=== PATIENT | male | born 1945 | race Caucasian/White ===

== ENCOUNTER 2016-06-02 10:49 | Inpatient (IN) | payer OTHER, MEDICARE ==
[~2016-06-02] VITALS: Ht 188 cm; Wt 101.9 kg
[2016-06-12] MEDS ORDERED: VITA2000 PO (09:38)
[2016-06-12] MEDS ORDERED: AMLO5TAB2 PO (09:38)
[2016-06-12] MEDS ORDERED: GABA300C5 PO (09:38)
[2016-06-12] MEDS ORDERED: LOSA50TA PO (09:38)
[2016-06-12] MEDS ORDERED: CHLO25TA2 PO (09:38)
[2016-06-12] MEDS ORDERED: [UNRECOGNIZED DRUG - OTHER] PO (09:40)
[2016-06-15 06:30] VITALS: BP 145/86; PULSE 71; RESP 20; TEMP 98.1; O2SAT 95
[2016-06-15] MEDS ORDERED: DEXAMETHASONE SOD PHOS 20 MG/5 ML VIAL IV PUSH SCH (06:30)
[2016-06-15] MEDS ORDERED: METOPROLOL TARTRATE 25 MG TAB PO PRN (06:30)
[2016-06-15] MEDS ORDERED: EXPAREL PERI-ARTICULAR INJECTION (TOTAL VOL. 60 ML) P-ARTICULR SCH ×2 (06:30)
[2016-06-15] MEDS ORDERED: TRANEXAMIC PERI-ARTICULAR 3,000 MG/NS 100 ML P-ARTICULR SCH ×2 (06:30)
[2016-06-15] MEDS ORDERED: ceFAZolin 2 GM PREMIX 50 ML IV SCH (06:30)
[2016-06-15] MEDS ORDERED: SODIUM CHLORID 0.9% 500 ML IV SCH (06:30)
[2016-06-15] MEDS ORDERED: ROPIVACAINE PERI-ARTICULAR INJECTION. PERIART SCH ×5 (06:30)
[2016-06-15] MEDS ORDERED: LACTATED RINGER'S 1000 ML IV SCH (06:30)
[2016-06-15] MEDS: POVIDONE IODINE 7.5% SCRUB 118 ML BOTTLE TOP SCH (06:30)
[2016-06-15] MEDS ORDERED: TRANEXAMIC ACID INJ 1,400 MG in SODIUM CHLORIDE 0.9% INJ 100 ML IV SCH (06:30)
[2016-06-15] MEDS ORDERED: VANCOMYCIN 1000 MG/NS 250 ML (for <70 kg) IV SCH ×2 (06:30)
[2016-06-15] MEDS ORDERED: INSULIN HUMAN REGULAR 1,000 UNITS/10 ML VIAL SQ PRN (06:30)
[2016-06-15] MEDS ORDERED: GENTAMICIN SULFATE 80 MG/2 ML VIAL ONE (06:57)
[2016-06-15] MEDS ORDERED: HYDR-3288 PO (07:21)
[2016-06-15] MEDS ORDERED: APIX2.5T PO (07:21)
[2016-06-15] MEDS ORDERED: BISACODYL 10 MG SUPP PR PRN (07:30)
[2016-06-15] MEDS ORDERED: Post-op Orders (for Pharmacy) MISC XX ONE (07:30)
[2016-06-15] MEDS ORDERED: SODIUM CHLORIDE 0.9% FLUSH 5 ML FLUSH IVF PRN (07:30)
[2016-06-15] MEDS ORDERED: diphenhydrAMINE HCL 50 MG/ML VIAL IV PRN (07:30)
[2016-06-15] MEDS ORDERED: ACETAMINOPHEN/HYDROcodone 325 MG/7.5 MG TAB PO PRN (07:30)
[2016-06-15] MEDS ORDERED: ZOLPIDEM TARTRATE 5 MG TAB PO PRN (07:30)
[2016-06-15] MEDS ORDERED: ALUMINUM/MAGNESIUM/SIMETH 30 ML CUP PO PRN (07:30)
[2016-06-15] MEDS ORDERED: NALOXONE HCL 0.4 MG/ML AMP IV PRN (07:30)
[2016-06-15] MEDS ORDERED: MORPHINE SULFATE 4 MG/ML INJ IV PUSH PRN (07:30)
[2016-06-15] MEDS ORDERED: ONDANSETRON HCL 4 MG/2 ML VIAL IVP PRN (07:30)
[2016-06-15] MEDS ORDERED: MIDAZOLAM HCL 5 MG/5 ML VIAL ONE (07:57)
[2016-06-15] MEDS: SODIUM CHLORIDE 0.9% FLUSH 5 ML FLUSH IVF SCH ×2 (09:00→21:00)
[2016-06-15] MEDS ORDERED: amLODIPine BESYLATE 5 MG TAB PO SCH (09:00)
[2016-06-15] MEDS: SODIUM CHLOR 0.9% 1000 ML INJ 1,000 ML IV SCH ×2 (09:00→19:00)
[2016-06-15] MEDS: GABAPENTIN 300 MG CAP PO SCH (09:00)
[2016-06-15] MEDS ORDERED: NON-FORMULARY DRUG (Chlorthalidone 25 MG) PO SCH (09:00)
[2016-06-15] MEDS ORDERED: LOSARTAN 50 MG TAB PO SCH (09:00)
[2016-06-15] MEDS ORDERED: ACETAMINOPHEN 1000 MG/100 ML VIAL IV ONE (09:45)
[2016-06-15] MEDS ORDERED: BUPIVACAINE LIPOSOME PF 1.3% 20 ML VIAL ONE (10:25)
[2016-06-15] MEDS ORDERED: MIDAZOLAM HCL 2 MG/2 ML VIAL ONE ×2 (11:19→11:20)
[2016-06-15] MEDS ORDERED: DO NOT ADM ANY ANTICOAGULANT DRUGS XX PRN ×2 (11:45→12:30)
--- NOTE | 2016-06-15 12:01 | RADRPT ---
EXAM DATE/TIME: 06/15/2016 11:08 [place] COMPARISON: No previous studies available for comparison. INDICATIONS : Left knee replacement. MEDICAL HISTORY : Hypertension. SURGICAL HISTORY : None. ENCOUNTER: Initial ACUITY: 1 day PAIN SCORE: Non-responsive. LOCATION: Left knee FINDINGS: AP and lateral views of the knee following arthroplasty reveals a prosthesis in anatomic alignment. F racture is not appreciated. CONCLUSION: Status post total knee arthroplasty. Ye Rodriguez MD FACR Board Certified Radiologist. This report was verified electronically.
[2016-06-15] MEDS ORDERED: PROPOFOL 200 MG/20 ML AMP IV ONE (12:51)
[2016-06-15] MEDS ORDERED: LACTATED RINGER'S 1000 ML INJ 1,000 ML IV ONE (12:51)
[2016-06-15 13:30] VITALS: BP 121/78; PULSE 66; RESP 16; TEMP 96.3; O2SAT 95
--- NOTE | 2016-06-15 13:30 | HHI.DCPOC ---
Discharge Care Plan Diagnosis: (1) Primary localized osteoarthrosis, lower leg Your Health Problems Are: Difficulty with ADL Goals to Promote Your Health * To prevent worsening of your condition and complications * To maintain your health at the optimal level Directions to Meet Your Goals Take your medications as prescribed Follow your dietary instruction Follow activity as directed Keep your appointments as scheduled Take your immunizations and boosters as scheduled If your symptoms worsen call your PCP, if no PCP go to Urgent Care Center or Emergency Room Smoking is Dangerous to Your Health. Avoid second hand smoke Call the 24-hour hour crisis hotline for domestic abuse at Adi Pierce Jun 15, 2016 13:30
--- NOTE | 2016-06-15 13:31 | HHI.FF ---
Face to Face Verification Diagnosis: (1) Primary localized osteoarthrosis, lower leg Physical Therapy Gait training, Safety evaluation, Wheelchair training Knee: Total knee, Protocol: Left Left LE Weight Bearing: WB as tolerated Nursing RN: 3 days/week x 2 weeks Nursing: Dressing changes Dressing Changes: Daily dressing change I have seen patient Roman MarieMICHAEL on 06/15/16. My clinical findings support the need for the requested home health care services because: Limited ability to care for self High risk of falls I certify that my clinical findings support that this patient is homebound because: Post-op weakness Unsteady gait/balance Adi Pierce Jun 15, 2016 13:31
[2016-06-15] MEDS ORDERED: COMMODE 3-IN-11 MIS (13:33)
[2016-06-15] MEDS ORDERED: CPMMACHINE (13:33)
[2016-06-15] MEDS ORDERED: WALKER WHEELS/F1 MIS (13:33)
[2016-06-15 15:20] VITALS: BP 87/42
[2016-06-15 16:00] VITALS: BP 154/84; PULSE 80; RESP 18; TEMP 96.6; O2SAT 96
--- NOTE | 2016-06-15 16:18 | PD.CONS ---
HPI Service [facility] Consult Requested By Dr Ricardo Primary Care Physician Alessandro Vale M.D. Diagnoses: History of Present Illness This is a 71-year-old male with past medical history significant only for hypertension and hyperlipidemia was previously on statin but this was stopped due to adverse reactions to this., neuropathy and hypoglycemia who has a past medical history of arthritis of the left knee and is here for elective left knee replacement. The patient underwent left knee replacement by Dr. Ricardo, complaints of left knee pain which is 9/10 and complains of dizziness. Patient however denies chest pain, shortness of breath, diarrhea, abdominal pain. During my interview it is noted that the patient's blood pressures low with a recorded blood pressure of 87/42. Patient denies any fevers or chills, hematocrit, melena or hematemesis. Review of Systems Except as stated in HPI: all other systems reviewed are Neg Past Family Social History Allergies: Coded Allergies: Lisinopril (Verified Allergy, Unknown, 06/12/16) Past Medical History 1. Hypertension. 2. Neuropathy after a fall. 3. Hyperglycemia 2 months ago. Past Surgical History Arthroscopic surgery of the right knee in 2001. Reported Medications 1. Losartan 50 mg by mouth daily. 2. BX of one 2.5 mg by mouth twice a day. 3. Gabapentin 600 mg by mouth daily. 4. Amlodipine 5 mg by mouth daily. 5. Note: One to 2 tabs by mouth every 6 hours as needed for pain. 6. Chlorthalidone 25 mg by mouth daily. 7. Vitamin D3 4000 units by mouth daily. Active Ordered Medications Current Medications Medications (Trade) Dose Ordered Sig/Chery Route Start Time Stop Time Status Last Admin (Betadine 7.5% Scrub) 1 applic ONCE TOP 06/15/16 06:30 06/18/16 06:29 06/15/16 06:30 (Hibiclens 4% Top Soln) 1 applic ONCE TOP 06/15/16 06:30 06/18/16 06:29 (Norvasc) 5 mg DAILY PO 06/15/16 09:00 Hold (Neurontin) 600 mg DAILY PO 06/15/16 09:00 (Cozaar) 50 mg DAILY PO 06/15/16 09:00 Hold Non-Formulary Medication 25 mg 25 mg DAILY PO 06/15/16 09:00 Hold (NS 1000 ml Inj) 1,000 ml @ 100 mls/hr Q10H IV 06/15/16 09:00 (NS Flush) 2 ml UNSCH PRN IVF 06/15/16 07:30 (NS Flush) 2 ml BID IVF 06/15/16 09:00 06/16/16 09:40 (Lovenox Inj) 40 mg Q24H SQ 06/16/16 10:00 06/25/16 10:01 (Morphine Inj) 3 mg Q3H PRN IV PUSH 06/15/16 07:30 ([place] 7.5-325 Mg) 1 tab Q4H PRN PO 06/15/16 07:30 ([place] 7.5-325 Mg) 2 tab Q4H PRN PO 06/15/16 07:30 06/16/16 09:41 (Theragran M Tab) 1 tab BID PO 06/16/16 21:00 08/15/16 20:59 (Zofran Inj) 4 mg Q6H PRN IVP 06/15/16 07:30 (Colace) 100 mg BID PO 06/16/16 21:00 (Mag-Al Plus Susp Liq) 30 ml Q6H PRN PO 06/15/16 07:30 (Ambien) 5 mg HS PRN PO 06/15/16 07:30 06/15/16 21:24 (Dulcolax Supp) 10 mg DAILY PRN [place] 06/15/16 07:30 (Milk Of Magnesia Liq) 30 ml DAILY PRN PO 06/15/16 07:30 06/16/16 09:45 (Narcan Inj) 0.4 mg UNSCH PRN IV 06/15/16 07:30 (Benadryl Inj) 25 mg Q6H PRN IV 06/15/16 07:30 Miscellaneous Information ALL NURSING DEPARTME... UNSCH PRN XX 06/15/16 11:45 06/16/16 11:44 Miscellaneous Information ALL NURSING DEPARTME... UNSCH PRN XX 06/15/16 12:30 06/16/16 12:29 Family History Father from a heart attack at age 81. Social History Patient states that he currently does not smoke. He is a former smoker and quit in 1984 and he states he used to smoke 1 pack per day. The patient states that he drinks alcohol, approximately 1 pack per day, however in preparation to the surgery he has not had a drink in 2 weeks. Patient is and has 3 daughters. Physical Exam Vital Signs Vital Signs Date Time Temp Pulse Resp B/P Pulse Ox O2 Delivery O2 Flow Rate FiO2 06/15/16 13:30 96.3 66 16 121/78 95 06/15/16 12:30 98.0 67 16 114/68 97 Nasal Cannula 3 06/15/16 12:15 77 16 111/66 96 Nasal Cannula 3 06/15/16 12:00 70 15 117/64 95 Nasal Cannula 3 06/15/16 11:45 72 15 115/68 95 Nasal Cannula 3 06/15/16 11:30 69 15 114/67 95 Nasal Cannula 3 06/15/16 11:15 98 15 119/72 98 Nasal Cannula 2 06/15/16 11:06 97.9 108 14 102/68 93 Nasal Cannula 4 06/15/16 06:30 98.1 71 20 145/86 95 Physical Exam GENERAL: This is a well-nourished, well-developed patient, in no apparent distress. SKIN: No rashes, ecchymoses or lesions. Cool and dry. HEAD: Atraumatic. Normocephalic. No temporal or scalp tenderness. EYES: Pupils equal round and reactive. Extraocular motions intact. No scleral icterus. No injection or drainage. ENT: Nose without bleeding, purulent drainage or septal hematoma. Throat without erythema, tonsillar hypertrophy or exudate. Uvula midline. Airway patent. NECK: Trachea midline. No JVD or lymphadenopathy. Supple, nontender, no meningeal signs. CARDIOVASCULAR: Regular rate and rhythm without murmurs, gallops, or rubs. RESPIRATORY: Clear to auscultation. Breath sounds equal bilaterally. No wheezes , rales, or rhonchi. GASTROINTESTINAL: Abdomen soft, non-tender, nondistended. No hepato-splenomegaly , or palpable masses. No guarding. MUSCULOSKELETAL: Extremities without clubbing, cyanosis, or edema. No joint tenderness, effusion, or edema noted. No calf tenderness. Negative Homans sign bilaterally. NEUROLOGICAL: Awake and alert. Cranial nerves II through XII intact. Motor and sensory grossly within normal limits. Five out of 5 muscle strength in all muscle groups. Normal speech. Laboratory Laboratory Tests Test 06/15/16 06:45 Blood Type A NEGATIVE Antibody Screen NEGATIVE Blood Bank Comment Imaging Current Medications Medications (Trade) Dose Ordered Sig/Chery Route Start Time Stop Time Status Last Admin (Betadine 7.5% Scrub) 1 applic ONCE TOP 06/15/16 06:30 06/18/16 06:29 06/15/16 06:30 (Hibiclens 4% Top Soln) 1 applic ONCE TOP 06/15/16 06:30 06/18/16 06:29 (Norvasc) 5 mg DAILY PO 06/15/16 09:00 Hold (Neurontin) 600 mg DAILY PO 06/15/16 09:00 (Cozaar) 50 mg DAILY PO 06/15/16 09:00 Hold Non-Formulary Medication 25 mg 25 mg DAILY PO 06/15/16 09:00 Hold (NS 1000 ml Inj) 1,000 ml @ 100 mls/hr Q10H IV 06/15/16 09:00 (NS Flush) 2 ml UNSCH PRN IVF 06/15/16 07:30 (NS Flush) 2 ml BID IVF 06/15/16 09:00 06/16/16 09:40 (Lovenox Inj) 40 mg Q24H SQ 06/16/16 10:00 06/25/16 10:01 (Morphine Inj) 3 mg Q3H PRN IV PUSH 06/15/16 07:30 ([place] 7.5-325 Mg) 1 tab Q4H PRN PO 06/15/16 07:30 ([place] 7.5-325 Mg) 2 tab Q4H PRN PO 06/15/16 07:30 06/16/16 09:41 (Theragran M Tab) 1 tab BID PO 06/16/16 21:00 08/15/16 20:59 (Zofran Inj) 4 mg Q6H PRN IVP 06/15/16 07:30 (Colace) 100 mg BID PO 06/16/16 21:00 (Mag-Al Plus Susp Liq) 30 ml Q6H PRN PO 06/15/16 07:30 (Ambien) 5 mg HS PRN PO 06/15/16 07:30 06/15/16 21:24 (Dulcolax Supp) 10 mg DAILY PRN [place] 06/15/16 07:30 (Milk Of Magnesia Liq) 30 ml DAILY PRN PO 06/15/16 07:30 06/16/16 09:45 (Narcan Inj) 0.4 mg UNSCH PRN IV 06/15/16 07:30 (Benadryl Inj) 25 mg Q6H PRN IV 06/15/16 07:30 Miscellaneous Information ALL NURSING DEPARTME... UNSCH PRN XX 06/15/16 11:45 06/16/16 11:44 Miscellaneous Information ALL NURSING DEPARTME... UNSCH PRN XX 06/15/16 12:30 06/16/16 12:29 Assessment and Plan Problem List: (1) Primary localized osteoarthrosis, lower leg ICD Code: M17.10 Status: Acute Plan: Synthes is status post left knee arthroplasty. Continue pain control as per orthopedic surgery. (2) HTN (hypertension) ICD Code: I10 Status: Acute Plan: Patient currently is hypotensive. Hold antihypertensive medications for now. (3) Hyperlipidemia ICD Code: E78.5 Status: Acute Plan: A shunt currently on a statin treatment, however this was discontinued due to some adverse effect to the medication. (4) Peripheral neuropathy ICD Code: G62.9 Status: Chronic Plan: Continue gabapentin. The patient states he has these neuropathy after a fall. (5) Hyperglycemia ICD Code: R73.9 Status: Acute Plan: Patient states that recently he was diagnosed with hyperglycemia 2 months ago. I would order some BMP and if the blood sugar is elevated then will check hemoglobin A1c. (6) Hypotension ICD Code: I95.9 Status: Acute Plan: Hypotension likely secondary to anesthetic medications, acute blood loss , we'll give 1 L of IV saline bolus and hold antihypertensive medications. Continue to monitor vital signs. Check hemoglobin and hematocrit and monitor. Assessment and Plan DVT prophylaxis: SCDs, no chemotherapy prophylaxis for today since patient just had surgery and is hypotensive. Code Status Full code Discussed Condition With Patient Problem Qualifiers (1) Primary localized osteoarthrosis, lower leg: Qualified Code: M17.11 - Primary localized osteoarthrosis, lower leg, right (2) HTN (hypertension): Qualified Code: I10 - Essential hypertension (3) Peripheral neuropathy: Qualified Code: G62.9 - Peripheral polyneuropathy Lexx Salinas MD Jun 15, 2016 16:18
[2016-06-15 17:59] LABS: AUTOMATED NEUTROPHIL # 9.2 TH/MM3 (1.8-7.7); HEMATOCRIT 36.6 % (39.0-51.0); HEMO FLAGS DIFF FINAL; LYMPH % 2.3 % (9.0-44.0); LYMPHOCYTE # 0.2 TH/MM3 (1.0-4.8); MEAN CELL VOLUME 94.3 FL (80.0-100.0); MEAN CORPUSCULAR HEMOGLOBIN 32.2 PG (27.0-34.0); MEAN CORPUSCULAR HGB CONC 34.1 % (32.0-36.0); NEUT % 91.7 % (16.0-70.0); PLATELET COUNT 144 TH/MM3 (150-450); RED BLOOD COUNT 3.88 MIL/MM3 (4.50-5.90); RED CELL DISTRIBUTION WIDTH 13.5 % (11.6-17.2)
[2016-06-15 18:40] LABS: ALKALINE PHOSPHATASE 43 U/L (45-117); ALT (GPT) 26 U/L (12-78); ANION GAP 9 MEQ/L (5-15); AST (GOT) 16 U/L (15-37); BICARBONATE 24.4 MEQ/L (21.0-32.0); BLOOD UREA NITROGEN 22 MG/DL (7-18); CHLORIDE 106 MEQ/L (98-107); GLOMERULAR FILTRATION RATE 49 ML/MIN (>89); MAGNESIUM 1.9 MG/DL (1.5-2.5); POTASSIUM 3.7 MEQ/L (3.5-5.1); SODIUM (NA) 139 MEQ/L (136-145); TOTAL BILIRUBIN ADULT 0.5 MG/DL (0.2-1.0)
[2016-06-15 20:30] VITALS: BP 109/68; PULSE 61; RESP 18; TEMP 95.8; O2SAT 94
[2016-06-16] VITALS (8 sets, daily range): BP systolic 99–130; BP diastolic 55–75; PULSE 60–101; RESP 16–21; TEMP 96.6–99.4; O2SAT 92–95
[2016-06-16] MEDS: ACETAMINOPHEN/HYDROcodone 325 MG/7.5 MG TAB PO PRN ×4 (01:55→19:29)
[2016-06-16] MEDS: SODIUM CHLOR 0.9% 1000 ML INJ 1,000 ML IV SCH ×2 (05:00→15:00)
[2016-06-16] MEDS: POVIDONE IODINE 7.5% SCRUB 118 ML BOTTLE TOP SCH ×2 (05:16→19:30)
[2016-06-16] MEDS: CHLORHEXIDINE GLUCONATE 4% SOLN 120 ML BTL TOP SCH ×2 (06:30→23:32)
[2016-06-16 08:16] LABS: HEMATOCRIT 32.7 % (39.0-51.0); MEAN CELL VOLUME 94.3 FL (80.0-100.0); MEAN CORPUSCULAR HEMOGLOBIN 32.4 PG (27.0-34.0); MEAN CORPUSCULAR HGB CONC 34.4 % (32.0-36.0); PLATELET COUNT 119 TH/MM3 (150-450); RED BLOOD COUNT 3.47 MIL/MM3 (4.50-5.90); RED CELL DISTRIBUTION WIDTH 13.6 % (11.6-17.2); REVIEW FLAG FINAL; WHITE BLOOD COUNT 7.1 TH/MM3 (4.0-11.0)
[2016-06-16 08:47] LABS: BICARBONATE 23.5 MEQ/L (21.0-32.0); POTASSIUM 3.4 MEQ/L (3.5-5.1)
--- NOTE | 2016-06-16 08:56 | PD.ORT.PN ---
Subjective Post Op Day #: 1 Subjective Remarks painful but tolerable. Objective Vitals Vital Signs Date Time Temp Pulse Resp B/P Pulse Ox O2 Delivery O2 Flow Rate FiO2 06/16/16 08:00 96.6 60 18 99/55 92 06/16/16 04:00 98.1 69 16 118/64 95 06/16/16 01:49 92 06/16/16 00:00 96.8 62 16 130/71 95 06/15/16 20:30 95.8 61 18 109/68 94 06/15/16 16:00 96.6 80 18 154/84 96 06/15/16 15:20 87/42 06/15/16 13:30 96.3 66 16 121/78 95 06/15/16 12:30 98.0 67 16 114/68 97 Nasal Cannula 3 06/15/16 12:15 77 16 111/66 96 Nasal Cannula 3 06/15/16 12:00 70 15 117/64 95 Nasal Cannula 3 06/15/16 11:45 72 15 115/68 95 Nasal Cannula 3 06/15/16 11:30 69 15 114/67 95 Nasal Cannula 3 06/15/16 11:15 98 15 119/72 98 Nasal Cannula 2 06/15/16 11:06 97.9 108 14 102/68 93 Nasal Cannula 4 I/O 06/15/16 06/15/16 06/15/16 06/16/16 06/16/16 06/16/16 07:00 15:00 23:00 07:00 15:00 23:00 Intake Total 2100 ml 90 ml Output Total 475 ml 850 ml Balance 1625 ml -760 ml Intake Oral 90 ml IV Total 300 ml Other 1800 ml Output Urine Total 325 ml 850 ml Estimated Blood Loss 150 ml # Voids 50 Result Diagram: 06/16/1615 06/16/16 0715 Objective Remarks in bed, nad dressing c/d/i neg homans nvi Assessment & Plan Ortho Post Op Day #: 1 Problem List: Assessment and Plan s/p L TKA wbat daily dressing changes lovenox - d/c on Eliquis PT d/c planning home with [facility] and pt rx in chart f/up dr. trejo 2 weeks Adi Pierce Jun 16, 2016 08:56
[2016-06-16] MEDS: GABAPENTIN 300 MG CAP PO SCH (09:00)
[2016-06-16] MEDS: SODIUM CHLORIDE 0.9% FLUSH 5 ML FLUSH IVF SCH ×2 (09:40→19:30)
[2016-06-16] MEDS: MAGNESIUM HYDROXIDE SUSP 30 ML CUP PO PRN ×2 (09:45→19:29)
[2016-06-16] MEDS: ENOXAPARIN SODIUM 40 MG/0.4 ML SYRINGE SQ SCH (10:46)
--- NOTE | 2016-06-16 14:47 | HHI.PR ---
Subjective Remarks Patient was hypotensive earlier today. BP much improved Patient denies chest pain, short of breath and Denies dizziness. Denies abdominal pain, nausea or vomiting. Pain controlled Potassium 3.4. Objective Vitals Vital Signs Date Time Temp Pulse Resp B/P Pulse Ox O2 Delivery O2 Flow Rate FiO2 06/16/16 12:01 97.5 72 18 114/71 95 06/16/16 09:39 112/75 06/16/16 08:00 96.6 60 18 99/55 92 06/16/16 04:00 98.1 69 16 118/64 95 06/16/16 01:49 92 06/16/16 00:00 96.8 62 16 130/71 95 06/15/16 20:30 95.8 61 18 109/68 94 06/15/16 16:00 96.6 80 18 154/84 96 06/15/16 15:20 87/42 I/O 06/15/16 06/15/16 06/15/16 06/16/16 06/16/16 06/16/16 07:00 15:00 23:00 07:00 15:00 23:00 Intake Total 2100 ml 90 ml Output Total 475 ml 850 ml Balance 1625 ml -760 ml Intake Oral 90 ml IV Total 300 ml Other 1800 ml Output Urine Total 325 ml 850 ml Estimated Blood Loss 150 ml # Voids 50 Result Diagram: 06/16/1671406/16/16714 Imaging Last Impressions Knee X-Ray 06/15/16717 Signed Impressions: Service Date/Time: Wednesday, June 15, 2016 11:08 - CONCLUSION: Status post total knee arthroplasty. Ye Rodriguez MD Objective Remarks GENERAL: This is a well-nourished, well-developed patient, in no apparent distress. SKIN: No rashes, ecchymoses or lesions. Cool and dry. HEAD: Atraumatic. Normocephalic. No temporal or scalp tenderness. EYES: Pupils equal round and reactive. Extraocular motions intact. No scleral icterus. No injection or drainage. ENT: Nose without bleeding, purulent drainage or septal hematoma. Throat without erythema, tonsillar hypertrophy or exudate. Uvula midline. Airway patent. NECK: Trachea midline. No JVD or lymphadenopathy. Supple, nontender, no meningeal signs. CARDIOVASCULAR: Regular rate and rhythm without murmurs, gallops, or rubs. RESPIRATORY: Clear to auscultation. Breath sounds equal bilaterally. No wheezes , rales, or rhonchi. GASTROINTESTINAL: Abdomen soft, non-tender, nondistended. No hepato-splenomegaly , or palpable masses. No guarding. MUSCULOSKELETAL: Extremities without clubbing, cyanosis, or edema. No joint tenderness, effusion, or edema noted. No calf tenderness. Negative Homans sign bilaterally. Left knee swollen, wrapped on bandages which look C/D/I NEUROLOGICAL: Awake and alert. Cranial nerves II through XII intact. Motor and sensory grossly within normal limits. Five out of 5 muscle strength in all muscle groups. Normal speech. Procedures Status post left total knee arthroplasty. Medications and IVs Current Medications Medications (Trade) Dose Ordered Sig/Chery Route Start Time Stop Time Status Last Admin (Betadine 7.5% Scrub) 1 applic ONCE TOP 06/15/16 06:30 06/18/16 06:29 06/15/16 06:30 (Hibiclens 4% Top Soln) 1 applic ONCE TOP 06/15/16 06:30 06/18/16 06:29 (Norvasc) 5 mg DAILY PO 06/15/16 09:00 Hold (Neurontin) 600 mg DAILY PO 06/15/16 09:00 (Cozaar) 50 mg DAILY PO 06/15/16 09:00 Hold Non-Formulary Medication 25 mg 25 mg DAILY PO 06/15/16 09:00 Hold (NS 1000 ml Inj) 1,000 ml @ 100 mls/hr Q10H IV 06/15/16 09:00 (NS Flush) 2 ml UNSCH PRN IVF 06/15/16 07:30 (NS Flush) 2 ml BID IVF 06/15/16 09:00 06/16/16 09:40 (Lovenox Inj) 40 mg Q24H SQ 06/16/16 10:00 06/25/16 10:01 06/16/16 10:46 (Morphine Inj) 3 mg Q3H PRN IV PUSH 06/15/16 07:30 ([place] 7.5-325 Mg) 1 tab Q4H PRN PO 06/15/16 07:30 ([place] 7.5-325 Mg) 2 tab Q4H PRN PO 06/15/16 07:30 06/16/16 15:27 (Theragran M Tab) 1 tab BID PO 06/16/16 21:00 08/15/16 20:59 (Zofran Inj) 4 mg Q6H PRN IVP 06/15/16 07:30 (Colace) 100 mg BID PO 06/16/16 21:00 (Mag-Al Plus Susp Liq) 30 ml Q6H PRN PO 06/15/16 07:30 (Ambien) 5 mg HS PRN PO 06/15/16 07:30 06/15/16 21:24 (Dulcolax Supp) 10 mg DAILY PRN [place] 06/15/16 07:30 (Milk Of Magnesia Liq) 30 ml DAILY PRN PO 06/15/16 07:30 06/16/16 09:45 (Narcan Inj) 0.4 mg UNSCH PRN IV 06/15/16 07:30 (Benadryl Inj) 25 mg Q6H PRN IV 06/15/16 07:30 Urinary Catheter: No Vascular Central Line Catheter: No A/P Problem List: (1) Primary localized osteoarthrosis, lower leg ICD Code: M17.10 Status: Acute Plan: Synthes is status post left knee arthroplasty. Continue pain control as per orthopedic surgery. Patient currently on [place] and IV morphine for pain control. (2) HTN (hypertension) ICD Code: I10 Status: Acute Plan: Continue to hold antihypertensive medications as blood pressure has been borderline low. (3) Hyperlipidemia ICD Code: E78.5 Status: Acute Plan: Patient previously on a statin treatment, however this was discontinued due to some adverse effect to the medication. (4) Peripheral neuropathy ICD Code: G62.9 Status: Chronic Plan: Continue gabapentin. The patient states that his neuropathy came on after he fell. (5) Hyperglycemia ICD Code: R73.9 Plan: Patient states that recently he was diagnosed with hyperglycemia 2 months ago. Check hemoglobin A1c. (6) Hypotension ICD Code: I95.9 Status: Acute Plan: Hypotension likely secondary to anesthetic medications, acute blood loss , we'll give 1 L of IV saline bolus and hold antihypertensive medications. Continue to monitor vital signs. 04/15 patient's hypotension resolved after IV fluid bolus administered yesterday. However this morning and again hypotensive. I will place the patient on normal saline and continue to monitor vital signs. (7) WILLIE (acute kidney injury) ICD Code: N17.9 Status: Acute Plan: Thank you secondary to hemodynamic instability and hypotension. Creatinine 1.43 last night down to 1.02 today. Continue to monitor BUN/ creatinine, will place on IV fluids, strict I's and O's. Assessment and Plan GI prophylaxis: I will add PPI since patient is on [place] and has had hypotension. Activity reflexes: SCDs, started on Lovenox as per orthopedic surgery. Discharge Planning Possible clue to discharge in a.m. after creatinine improved and blood pressure stable. Problem Qualifiers (1) Primary localized osteoarthrosis, lower leg: Qualified Code: M17.11 - Primary localized osteoarthrosis, lower leg, right (2) HTN (hypertension): Qualified Code: I10 - Essential hypertension (3) Peripheral neuropathy: Qualified Code: G62.9 - Peripheral polyneuropathy Lexx Salinas MD Jun 16, 2016 14:47
[2016-06-16] MEDS ORDERED: POTASSIUM CHLORIDE 20 MEQ CONTROLLED RELEASE TAB PO ONE (15:00)
[2016-06-16] MEDS: NS + KCL 20 MEQ INJ 1,000 ML IV SCH ×2 (18:11→19:28)
[2016-06-16] MEDS: MULTIVITAMINS/MINERALS THERAPEUTIC TAB PO SCH (19:29)
[2016-06-16] MEDS: DOCUSATE SODIUM 100 MG CAP PO SCH (19:29)
[2016-06-16 22:04] LABS: HEMOGLOBIN A1a 1.1 %; HEMOGLOBIN A1b 1.7 %; HEMOGLOBIN Ao 84.2 %; HEMOGLOBIN F 0.2 %; HEMOGLOBIN LA1C 2.2 %; HEMOGLOBIN P3 4.2 %
[2016-06-17] VITALS (8 sets, daily range): BP systolic 116–147; BP diastolic 62–85; PULSE 82–114; RESP 18–20; TEMP 97.7–101.2; O2SAT 92–96
[2016-06-17] MEDS: ACETAMINOPHEN/HYDROcodone 325 MG/7.5 MG TAB PO PRN ×5 (02:15→19:37)
[2016-06-17] MEDS: GABAPENTIN 300 MG CAP PO SCH (08:06)
[2016-06-17] MEDS: MULTIVITAMINS/MINERALS THERAPEUTIC TAB PO SCH ×2 (08:07→19:30)
--- NOTE | 2016-06-17 08:07 | PD.ORT.PN ---
Subjective Post Op Day #: 2 Subjective Remarks doing better. had BM. Objective Vitals Vital Signs Date Time Temp Pulse Resp B/P Pulse Ox O2 Delivery O2 Flow Rate FiO2 06/17/16 04:00 97.7 109 18 147/85 95 06/17/16 00:00 100.6 113 18 143/80 94 06/16/16 20:49 99.2 101 21 103/59 92 06/16/16 16:00 99.4 86 18 113/58 93 06/16/16 12:01 97.5 72 18 114/71 95 06/16/16 09:39 112/75 I/O 06/16/16 06/16/16 06/16/16 06/17/16 06/17/16 06/17/16 07:00 15:00 23:00 07:00 15:00 23:00 Intake Total 90 ml 1230 ml 491 ml 798 ml Output Total 850 ml 450 ml Balance -760 ml 1230 ml 491 ml 348 ml Intake Oral 90 ml 1230 ml 360 ml IV Total 131 ml 798 ml Output Urine Total 850 ml 450 ml # Voids 2 2 # Bowel Movements 0 0 1 Result Diagram: 06/16/1615 06/16/16 0715 Objective Remarks in bed, nad incision no erythema, no drainage neg homans nvi Assessment & Plan Ortho Post Op Day #: 2 Problem List: Assessment and Plan s/p L TKA wbat daily dressing changes lovenox - d/c on Eliquis IS and OOB d/c planning home with [facility] and pt - cleared for d/c today rx in chart f/up dr. trejo 2 weeks Adi Pierce Jun 17, 2016 08:07
[2016-06-17] MEDS: DOCUSATE SODIUM 100 MG CAP PO SCH ×2 (08:08→19:30)
[2016-06-17] MEDS: SODIUM CHLORIDE 0.9% FLUSH 5 ML FLUSH IVF SCH ×2 (08:08→19:30)
[2016-06-17 08:14] LABS: HEMATOCRIT 30.6 % (39.0-51.0); MEAN CELL VOLUME 93.7 FL (80.0-100.0); MEAN CORPUSCULAR HEMOGLOBIN 32.1 PG (27.0-34.0); MEAN CORPUSCULAR HGB CONC 34.2 % (32.0-36.0); PLATELET COUNT 104 TH/MM3 (150-450); RED BLOOD COUNT 3.27 MIL/MM3 (4.50-5.90); RED CELL DISTRIBUTION WIDTH 13.9 % (11.6-17.2); REVIEW FLAG FINAL; WHITE BLOOD COUNT 7.4 TH/MM3 (4.0-11.0)
[2016-06-17 08:23] LABS: BICARBONATE 24.6 MEQ/L (21.0-32.0); POTASSIUM 3.4 MEQ/L (3.5-5.1)
[2016-06-17] MEDS: ENOXAPARIN SODIUM 40 MG/0.4 ML SYRINGE SQ SCH (10:38)
--- NOTE | 2016-06-17 11:12 | MP ---
cc: DIGNA VALDERRAMA DATE OF SURGERY 06/15/2016 PREOPERATIVE DIAGNOSIS Left knee osteoarthritis POSTOPERATIVE DIAGNOSES Left knee osteoarthritis PROCEDURE Left total knee arthroplasty SURGEON Dr. Seth Valderrama SERVICES TECH BRYAN Freire ANESTHESIA General, spinal and an adductor canal block. REVIEW OF SYSTEMS 50 mL. TOURNIQUET TIME 64 minutes at 250 mmHg COMPLICATIONS None IMAGING STUDIES DePuy attune size eight logistics analyst stabilized femoral component, size nine rotating platform tibia baseplate, size 10 mm polyethylene tibial insert, size 41 mm patella. JUSTIFICATION A 71-year-old male with history of severe end-stage osteoarthritis involving the left knee. He has severe disabling pain with standing, walking, ambulation, weightbearing activities. He has failed greater than three months of nonoperative conservative to include medication therapy, injections, ambulatory assisted aids, home exercise program, activity modification. The patient is not overweight. X-ray of the left knee reveals severe end-stage osteoarthritis, [id number] joint space narrowing, subchondral sclerosis, subchondral cyst osteophyte formation and a large varus deformity. The patient was counseled as to risks, benefits and alternatives to a total knee arthroplasty. The risks were discussed which include but are not limited to anesthesia, bleeding, infection, damage to nerves, blood vessels, pain, stiffness, failure of components, blood clots, pulmonary embolism, even . The patient's pain is severe. He understood the risks and did wish to proceed with surgery. A written consent was obtained. PROCEDURE IN DETAIL The patient was identified by name, taken to the operating room, placed supine on the operating room table. Initially spinal anesthesia was administered, but this did not provide adequate anesthesia. Subsequently general anesthesia was administered to the patient. The patient was administered 2 grams of IV Ancef and 1 gram of IV vancomycin. A well-padded tourniquet was placed on the left thigh. The left lower extremity prepped and draped using isopropyl alcohol, Hibiclens solution and Chloraprep solution. An Esmarch bandage was used to exsanguinate the left lower extremity. Tourniquet inflated to 250 mmHg. A longitudinal incision was made over the anterior aspect of left knee. A medial parapatellar arthrotomy incision was performed. The patella was everted. A patella resection guide was used to resect 9.5 mm of patella. Three drills in the patella were placed and the 41-mm trial fit well. Attention was turned to the femur. Intramedullary guide harsh was placed and the distal femoral guide set to remove 10 mm of distal femur. This was set 5 degrees off the anatomic valgus axis alignment. An oscillating saw was used to perform a distal femoral cut. Attention was turned to the tibia. An extramedullary tibial guide was used to resect 5 mm off the lowest portion of the medial tibial plateau. Tibial guide was pinned in place and the tibial cut was performed. A 5 mm spacer block showed full extension. I did have to do a significant release along the medial collateral ligament and posterior medial corner as the patient had significant varus deformity and flexion contracture to the medial structures. This allowed for soft tissue balance in a varus-valgus fashion. Attention was turned back to the femur. The AP sizer block measured size eight. The 3 degree external rotation anterior reference guide was used to pin a size [address] The anterior posterior chamfer cuts were performed. A size eight PCL box guide was pinned in place. PCL was box cut with an oscillating saw. The medial and lateral meniscus remnants were removed as well as bone and soft tissue debrided from posterior portion of the knee. A size nine tibia baseplate was pinned in place. Tibia was drilled and punched. Trial components were evaluated and was final component was cemented in place. With the 10-mm polyethylene tibial insert, the leg achieved full extension at 0 degrees and flexion to 140, no evidence of tibial lift-off. Varus-valgus balance appeared appropriate and symmetric and the patella was noted to track centrally. Tourniquet was deflated. Bovie cautery was used for hemostasis. The knee was thoroughly irrigated with sterile saline pulse lavage antibiotic impregnated solution. The arthrotomy incision was closed with #1 Vicryl suture. The subcutaneous layer with 2-0 Vicryl suture. Skin was closed with Dermabond. Sterile dressing applied. The patient tolerated the procedure well with no intraoperative complications noted. John Pierce, physician nurse practitioner physicians assistant certified, was present during entire procedure to include patient positioning and the procedure itself. The medical necessity of physician nurse practitioner physicians assistant was indicated due to the complexity of the procedures. He assisted with appropriate manipulation of the leg and also traction of muscle, tendon and bone and neurovascular structure. He assisted with both preparation of bone and implantation of the prosthetic replacement. MD CONNOR Leonard /10:39 AM /10:27 AM
[2016-06-17] MEDS: NS + KCL 20 MEQ INJ 1,000 ML IV SCH ×2 (13:30→19:30)
[2016-06-17] MEDS ORDERED: POTASSIUM CHLORIDE 10 MEQ CONTROLLED RELEASE TAB PO ONE (17:45)
[2016-06-17 18:38] LABS: BLOOD, URINE SMALL (NEG); COMMENT (UR) CULT NOT INDICATED; CULTURE IF INDICATED CULT NOT INDICATED; GLUCOSE,URINE NEG (NEG); KETONE, URINE 10 mg/dL (NEG); MUCUS URINE FEW /lpf (OCC); NITRITE,URINE NEG (NEG); PH, URINE 5.5 (5.0-8.5); URINE COLOR YELLOW (YELLW/STRAW)
--- NOTE | 2016-06-17 19:04 | HHI.PR ---
Subjective Remarks Patient denies cp/sob pain controlled having fevers Objective Vitals Vital Signs Date Time Temp Pulse Resp B/P Pulse Ox O2 Delivery O2 Flow Rate FiO2 06/17/16 16:00 100.8 110 18 128/62 92 06/17/16 14:35 95 Nasal Cannula 21 06/17/16 12:00 98.5 82 18 131/72 96 06/17/16 10:31 20 06/17/16 08:00 100.5 100 18 116/66 92 06/17/16 04:00 97.7 109 18 147/85 95 06/17/16 00:00 100.6 113 18 143/80 94 06/16/16 20:49 99.2 101 21 103/59 92 I/O 06/16/16 06/16/16 06/16/16 06/17/16 06/17/16 06/17/16 07:00 15:00 23:00 07:00 15:00 23:00 Intake Total 90 ml 1230 ml 491 ml 798 ml 600 ml Output Total 850 ml 450 ml Balance -760 ml 1230 ml 491 ml 348 ml 600 ml Intake Oral 90 ml 1230 ml 360 ml 600 ml IV Total 131 ml 798 ml Output Urine Total 850 ml 450 ml # Voids 2 2 4 # Bowel Movements 0 0 1 0 Result Diagram: 06/17/1672206/17/16722 Imaging Last Impressions Knee X-Ray 06/15/16717 Signed Impressions: Service Date/Time: Wednesday, June 15, 2016 11:08 - CONCLUSION: Status post total knee arthroplasty. Ye Rodriguez MD Objective Remarks GENERAL: This is a well-nourished, well-developed patient, in no apparent distress. SKIN: No rashes, ecchymoses or lesions. Cool and dry. HEAD: Atraumatic. Normocephalic. No temporal or scalp tenderness. EYES: Pupils equal round and reactive. Extraocular motions intact. No scleral icterus. No injection or drainage. ENT: Nose without bleeding, purulent drainage or septal hematoma. Throat without erythema, tonsillar hypertrophy or exudate. Uvula midline. Airway patent. NECK: Trachea midline. No JVD or lymphadenopathy. Supple, nontender, no meningeal signs. CARDIOVASCULAR: Regular rate and rhythm without murmurs, gallops, or rubs. RESPIRATORY: Clear to auscultation. Breath sounds equal bilaterally. No wheezes , rales, or rhonchi. GASTROINTESTINAL: Abdomen soft, non-tender, nondistended. No hepato-splenomegaly , or palpable masses. No guarding. MUSCULOSKELETAL: Extremities without clubbing, cyanosis, or edema. No joint tenderness, effusion, or edema noted. No calf tenderness. Negative Homans sign bilaterally. Left knee swollen, wrapped on bandages which look C/D/I NEUROLOGICAL: Awake and alert. Cranial nerves II through XII intact. Motor and sensory grossly within normal limits. Five out of 5 muscle strength in all muscle groups. Normal speech. Procedures Status post left total knee arthroplasty. Medications and IVs Current Medications Medications (Trade) Dose Ordered Sig/Chery Route Start Time Stop Time Status Last Admin (Betadine 7.5% Scrub) 1 applic ONCE TOP 06/15/16 06:30 06/18/16 06:29 06/15/16 06:30 (Hibiclens 4% Top Soln) 1 applic ONCE TOP 06/15/16 06:30 06/18/16 06:29 (Norvasc) 5 mg DAILY PO 06/15/16 09:00 Hold (Neurontin) 600 mg DAILY PO 06/15/16 09:00 (Cozaar) 50 mg DAILY PO 06/15/16 09:00 Hold Non-Formulary Medication 25 mg DAILY PO 06/15/16 09:00 Hold (NS Flush) 2 ml UNSCH PRN IVF 06/15/16 07:30 (NS Flush) 2 ml BID IVF 06/15/16 09:00 06/17/16 19:30 (Lovenox Inj) 40 mg Q24H SQ 06/16/16 10:00 06/25/16 10:01 06/17/16 10:38 (Morphine Inj) 3 mg Q3H PRN IV PUSH 06/15/16 07:30 ([place] 7.5-325 Mg) 1 tab Q4H PRN PO 06/15/16 07:30 ([place] 7.5-325 Mg) 2 tab Q4H PRN PO 06/15/16 07:30 06/17/16 19:37 (Theragran M Tab) 1 tab BID PO 06/16/16 21:00 08/15/16 20:59 06/17/16 19:30 (Zofran Inj) 4 mg Q6H PRN IVP 06/15/16 07:30 06/17/16 15:41 (Colace) 100 mg BID PO 06/16/16 21:00 06/16/16 19:29 (Mag-Al Plus Susp Liq) 30 ml Q6H PRN PO 06/15/16 07:30 (Ambien) 5 mg HS PRN PO 06/15/16 07:30 06/15/16 21:24 (Dulcolax Supp) 10 mg DAILY PRN [place] 06/15/16 07:30 (Milk Of Magnesia Liq) 30 ml DAILY PRN PO 06/15/16 07:30 06/16/16 19:29 (Narcan Inj) 0.4 mg UNSCH PRN IV 06/15/16 07:30 Diphenhydramine HCl 25 mg 25 mg Q6H PRN IV 06/15/16 07:30 (NS + KCl 20 Meq Inj) 1,000 ml @ 100 mls/hr Q10H IV 06/16/16 17:30 06/16/16 19:28 Urinary Catheter: No Vascular Central Line Catheter: No A/P Problem List: (1) Primary localized osteoarthrosis, lower leg ICD Code: M17.10 Status: Acute Plan: Synthes is status post left knee arthroplasty. Continue pain control as per orthopedic surgery. Patient currently on [place] and IV morphine for pain control. (2) HTN (hypertension) ICD Code: I10 Status: Acute Plan: Continue to hold antihypertensive medications as blood pressure has been borderline low. 06/17 bp much improved (3) Hyperlipidemia ICD Code: E78.5 Status: Acute Plan: Patient previously on a statin treatment, however this was discontinued due to some adverse effect to the medication. (4) Peripheral neuropathy ICD Code: G62.9 Status: Chronic Plan: Continue gabapentin. The patient states that his neuropathy came on after he fell. (5) Hyperglycemia ICD Code: R73.9 Status: Acute Plan: Patient states that recently he was diagnosed with hyperglycemia 2 months ago. Check hemoglobin A1c ----> patient is prediabetic. Patient would bennefit from starting oral metformin upon dc. Will consult dietitian and primary special educator. (6) Hypotension ICD Code: I95.9 Status: Acute Plan: Hypotension likely secondary to anesthetic medications, acute blood loss , we'll give 1 L of IV saline bolus and hold antihypertensive medications. Continue to monitor vital signs. 04/15 patient's hypotension resolved after IV fluid bolus administered yesterday. However this morning and again hypotensive. I will place the patient on normal saline and continue to monitor vital signs. 04/16 BP improved. Continue normal saline (7) WILLIE (acute kidney injury) ICD Code: N17.9 Status: Acute Plan: Thank you secondary to hemodynamic instability and hypotension. Creatinine 1.1. Continue to monitor BUN/creatinine, will place on IV fluids, strict I's and O's. (8) Low grade fever ICD Code: R50.9 Status: Acute Plan: check urinalysis, if urinalysis negative - will need check x ray and possibly blood cultures if fever persistent Assessment and Plan GI prophylaxis: I will add PPI since patient is on [place] and has had hypotension. Activity reflexes: SCDs, started on Lovenox as per orthopedic surgery. Discharge Planning Possible clue to discharge in a.m. after creatinine improved and blood pressure stable. Problem Qualifiers (1) Primary localized osteoarthrosis, lower leg: Qualified Code: M17.11 - Primary localized osteoarthrosis, lower leg, right (2) HTN (hypertension): Qualified Code: I10 - Essential hypertension (3) Peripheral neuropathy: Qualified Code: G62.9 - Peripheral polyneuropathy Lexx Salinas MD Jun 17, 2016 19:04
[2016-06-18] VITALS (7 sets, daily range): BP systolic 110–134; BP diastolic 58–76; PULSE 96–115; RESP 18–20; TEMP 97.6–102.9; O2SAT 92–98
[2016-06-18] MEDS: ACETAMINOPHEN/HYDROcodone 325 MG/7.5 MG TAB PO PRN ×4 (04:06→21:01)
[2016-06-18 06:58] LABS: HEMATOCRIT 29.7 % (39.0-51.0); MEAN CORPUSCULAR HGB CONC 34.1 % (32.0-36.0); PLATELET COUNT 105 TH/MM3 (150-450); RED BLOOD COUNT 3.16 MIL/MM3 (4.50-5.90); RED CELL DISTRIBUTION WIDTH 13.6 % (11.6-17.2); REVIEW FLAG FINAL; WHITE BLOOD COUNT 8.1 TH/MM3 (4.0-11.0)
[2016-06-18 07:57] LABS: BICARBONATE 27.9 MEQ/L (21.0-32.0); POTASSIUM 3.8 MEQ/L (3.5-5.1)
--- NOTE | 2016-06-18 08:37 | PD.ORT.PN ---
Subjective Post Op Day #: 3 Subjective Remarks pain controlled. having the chills. Objective Vitals Vital Signs Date Time Temp Pulse Resp B/P Pulse Ox O2 Delivery O2 Flow Rate FiO2 06/18/16 04:20 100.0 101 18 121/73 97 06/18/16 00:25 101.7 96 20 117/61 95 06/17/16 22:18 96 21 06/17/16 20:00 101.2 114 20 124/63 96 06/17/16 16:00 100.8 110 18 128/62 92 06/17/16 14:35 95 Nasal Cannula 21 06/17/16 12:00 98.5 82 18 131/72 96 06/17/16 10:31 20 I/O 06/17/16 06/17/16 06/17/16 06/18/16 06/18/16 06/18/16 07:00 15:00 23:00 07:00 15:00 23:00 Intake Total 798 ml 600 ml 700 ml Output Total 450 ml 1100 ml Balance 348 ml 600 ml -400 ml Intake Oral 600 ml 700 ml IV Total 798 ml Output Urine Total 450 ml 1100 ml # Voids 4 # Bowel Movements 1 0 0 Result Diagram: 06/18/16 0550 06/18/16 0550 Objective Remarks in chair, nad, shivering incision no erythema, no drainage neg homans nvi Assessment & Plan Ortho Post Op Day #: 3 Problem List: Assessment and Plan s/p L TKA wbat daily dressing changes lovenox - d/c on Eliquis IS and OOB elevated temp - UA neg, order CXR and US start vanco d/c planning home with [facility] and pt - hold today rx in chart f/up dr. trejo 2 weeks Adi Pierce Jun 18, 2016 08:37
[2016-06-18] MEDS: GABAPENTIN 300 MG CAP PO SCH (09:00)
[2016-06-18] MEDS: SODIUM CHLORIDE 0.9% FLUSH 5 ML FLUSH IVF SCH ×2 (09:00→21:02)
[2016-06-18] MEDS: NS + KCL 20 MEQ INJ 1,000 ML IV SCH ×2 (09:30→19:30)
[2016-06-18] MEDS: ENOXAPARIN SODIUM 40 MG/0.4 ML SYRINGE SQ SCH (09:37)
[2016-06-18] MEDS: VANCOMYCIN INJ 1,000 MG in SODIUM CHLOR 0.9% 250 ML INJ 250 ML IV SCH ×2 (09:37→21:01)
[2016-06-18] MEDS: MULTIVITAMINS/MINERALS THERAPEUTIC TAB PO SCH ×2 (09:42→21:01)
[2016-06-18] MEDS: DOCUSATE SODIUM 100 MG CAP PO SCH ×2 (09:42→21:00)
--- NOTE | 2016-06-18 09:56 | RADRPT ---
EXAM DATE/TIME: 06/18/2016 09:00 [facility] COMPARISON: KNEE LEFT LTD (1 OR 2VWS), June 15, 2016, 11:08. INDICATIONS : Fever. MEDICAL HISTORY : None. SURGICAL HISTORY : None. ENCOUNTER: Initial ACUITY: 3 days PAIN SCORE: 0/10 LOCATION: Bilateral chest FINDINGS: The heart is normal in size. There chronic interstitial changes within the pulmonary parenchyma. The lungs are otherwise clear. There are degenerative changes in the shoulders bilaterally. CONCLUSION: 1. Chronic interstitial changes. No acute abnormality. Lyle Rodriguez MD on June 18, 2016 at 9:51 Board Certified Radiologist. This report was verified electronically.
--- NOTE | 2016-06-18 11:59 | HHI.PR ---
Subjective Remarks Patient states had fevers and chills overnight denies cp/sob denies cough had explosive diarrhea 2 days ago and yesterday loose stool, has not had a BM today T max 101.7 had throbbing pain over in left knee. Objective Vitals Vital Signs Date Time Temp Pulse Resp B/P Pulse Ox O2 Delivery O2 Flow Rate FiO2 06/18/16 04:20 100.0 101 18 121/73 97 06/18/16 00:25 101.7 96 20 117/61 95 06/17/16 22:18 96 21 06/17/16 20:00 101.2 114 20 124/63 96 06/17/16 16:00 100.8 110 18 128/62 92 06/17/16 14:35 95 Nasal Cannula 21 06/17/16 12:00 98.5 82 18 131/72 96 I/O 06/17/16 06/17/16 06/17/16 06/18/16 06/18/16 06/18/16 07:00 15:00 23:00 07:00 15:00 23:00 Intake Total 798 ml 600 ml 700 ml Output Total 450 ml 1100 ml Balance 348 ml 600 ml -400 ml Intake Oral 600 ml 700 ml IV Total 798 ml Output Urine Total 450 ml 1100 ml # Voids 4 # Bowel Movements 1 0 0 Result Diagram: 06/18/16 0550 06/18/16 0550 Imaging Last Impressions Lower Extremity Ultrasound 06/18/16 0000 Signed Impressions: Service Date/Time: June 10:30 - CONCLUSION: Negative exam. No sonographic or Doppler findings of deep venous thrombosis. Rigo Rasmussen MD Chest X-Ray 06/18/16 0000 Signed Impressions: Service Date/Time: June 09:00 - CONCLUSION: 1. Chronic interstitial changes. No acute abnormality. Lyle Rodriguez MD Knee X-Ray 06/15/16 0718 Signed Impressions: Service Date/Time: Wednesday, June 15, 2016 11:08 - CONCLUSION: Status post total knee arthroplasty. Ye Rodriguez MD Objective Remarks GENERAL: This is a well-nourished, well-developed patient, in no apparent distress. SKIN: No rashes, ecchymoses or lesions. Cool and dry. HEAD: Atraumatic. Normocephalic. No temporal or scalp tenderness. EYES: Pupils equal round and reactive. Extraocular motions intact. No scleral icterus. No injection or drainage. ENT: Nose without bleeding, purulent drainage or septal hematoma. Throat without erythema, tonsillar hypertrophy or exudate. Uvula midline. Airway patent. NECK: Trachea midline. No JVD or lymphadenopathy. Supple, nontender, no meningeal signs. CARDIOVASCULAR: Regular rate and rhythm without murmurs, gallops, or rubs. RESPIRATORY: Clear to auscultation. Breath sounds equal bilaterally. No wheezes , rales, or rhonchi. GASTROINTESTINAL: Abdomen soft, non-tender, nondistended. No hepato-splenomegaly , or palpable masses. No guarding. MUSCULOSKELETAL: Extremities without clubbing, cyanosis, or edema. No joint tenderness, effusion, or edema noted. No calf tenderness. Negative Homans sign bilaterally. Left knee swollen, wrapped on bandages which look C/D/I NEUROLOGICAL: Awake and alert. Cranial nerves II through XII intact. Motor and sensory grossly within normal limits. Five out of 5 muscle strength in all muscle groups. Normal speech. Procedures Status post left total knee arthroplasty. Medications and IVs Current Medications Medications (Trade) Dose Ordered Sig/Chery Route Start Time Stop Time Status Last Admin (Norvasc) 5 mg DAILY PO 06/15/16 09:00 Hold (Neurontin) 600 mg DAILY PO 06/15/16 09:00 (Cozaar) 50 mg DAILY PO 06/15/16 09:00 Hold Non-Formulary Medication 25 mg DAILY PO 06/15/16 09:00 Hold (NS Flush) 2 ml UNSCH PRN IVF 06/15/16 07:30 (NS Flush) 2 ml BID IVF 06/15/16 09:00 06/18/16 09:00 (Lovenox Inj) 40 mg Q24H SQ 06/16/16 10:00 06/25/16 10:01 06/18/16 09:37 (Morphine Inj) 3 mg Q3H PRN IV PUSH 06/15/16 07:30 ([place] 7.5-325 Mg) 1 tab Q4H PRN PO 06/15/16 07:30 ([place] 7.5-325 Mg) 2 tab Q4H PRN PO 06/15/16 07:30 06/18/16 14:10 (Theragran M Tab) 1 tab BID PO 06/16/16 21:00 08/15/16 20:59 06/18/16 09:42 (Zofran Inj) 4 mg Q6H PRN IVP 06/15/16 07:30 06/17/16 15:41 (Colace) 100 mg BID PO 06/16/16 21:00 06/18/16 09:42 (Mag-Al Plus Susp Liq) 30 ml Q6H PRN PO 06/15/16 07:30 (Ambien) 5 mg HS PRN PO 06/15/16 07:30 06/15/16 21:24 (Dulcolax Supp) 10 mg DAILY PRN [place] 06/15/16 07:30 (Milk Of Magnesia Liq) 30 ml DAILY PRN PO 06/15/16 07:30 06/16/16 19:29 (Narcan Inj) 0.4 mg UNSCH PRN IV 06/15/16 07:30 Diphenhydramine HCl 25 mg 25 mg Q6H PRN IV 06/15/16 07:30 Potassium Chloride/Sodium Chloride 1,000 ml @ 100 mls/hr Q10H IV 06/16/16 17:30 06/16/16 19:28 Vancomycin HCl 1000 mg/Sodium Chloride 250 ml @ 250 mls/hr Q12H IV 06/18/16 09:00 06/18/16 09:37 (Maxipime Inj/NS Inj) 100 ml @ 200 mls/hr Q8H IV 06/18/16 13:00 06/18/16 12:56 Urinary Catheter: No Vascular Central Line Catheter: No A/P Problem List: (1) Primary localized osteoarthrosis, lower leg ICD Code: M17.10 Status: Acute Plan: Synthes is status post left knee arthroplasty. Continue pain control as per orthopedic surgery. Patient currently on [place] and IV morphine for pain control. (2) HTN (hypertension) ICD Code: I10 Status: Acute Plan: Continue to hold antihypertensive medications as blood pressure has been borderline low. 06/17 bp much improved (3) Hyperlipidemia ICD Code: E78.5 Status: Acute Plan: Patient previously on a statin treatment, however this was discontinued due to some adverse effect to the medication. (4) Peripheral neuropathy ICD Code: G62.9 Status: Chronic Plan: Continue gabapentin. The patient states that his neuropathy came on after he fell. (5) Hyperglycemia ICD Code: R73.9 Status: Acute Plan: Patient states that recently he was diagnosed with hyperglycemia 2 months ago. Check hemoglobin A1c ----> patient is prediabetic. Patient would benefit from starting oral metformin upon dc. Will consult dietitian and educator senior clinical. (6) Hypotension ICD Code: I95.9 Status: Acute Plan: Hypotension likely secondary to anesthetic medications, acute blood loss , we'll give 1 L of IV saline bolus and hold antihypertensive medications. Continue to monitor vital signs. 04/15 patient's hypotension resolved after IV fluid bolus administered yesterday. However this morning and again hypotensive. I will place the patient on normal saline and continue to monitor vital signs. 04/16 BP improved. Continue normal saline (7) WILLIE (acute kidney injury) ICD Code: N17.9 Status: Acute Plan: Thank you secondary to hemodynamic instability and hypotension. Creatinine 1.1. Continue to monitor BUN/creatinine, will place on IV fluids, strict I's and O's. (8) SIRS (systemic inflammatory response syndrome) ICD Code: R65.10 Status: Acute Plan: Patient with persistent fevers and chills. MAXIMUM TEMPERATURE 101.7 and tachycardia. Urinalysis negative Doppler ultrasound of the postsurgical extremity is negative for DVT. Patient started on IV vancomycin by orthopedic surgery, I will add cefepime for a broader coverage. Chest x-ray which was reviewed by me shows some chronic soft tissue changes. Check blood cultures continue to monitor vital signs. If the patient continues to have fevers and infectious disease consultation will be requested. Continue IV normal saline. Assessment and Plan GI prophylaxis: I will add PPI since patient is on [place] and has had hypotension. Activity reflexes: SCDs, started on Lovenox as per orthopedic surgery. Discharge Planning Continue to monitor in the medical floor. The patient is not cleared to be discharged. Problem Qualifiers (1) Primary localized osteoarthrosis, lower leg: Qualified Code: M17.11 - Primary localized osteoarthrosis, lower leg, right (2) HTN (hypertension): Qualified Code: I10 - Essential hypertension (3) Peripheral neuropathy: Qualified Code: G62.9 - Peripheral polyneuropathy Lexx Salinas MD Jun 18, 2016 11:59
--- NOTE | 2016-06-18 12:14 | RADRPT ---
EXAM DATE/TIME: 06/18/2016 10:30 [facility] COMPARISON: None. INDICATIONS : Left leg swelling. MEDICAL HISTORY : Arthritis. Hypertension. Hypercholesterolemia. Neuropathy. SURGICAL HISTORY : Angiogram. Right knee arthoscopy. Left knee surgery. ENCOUNTER: Initial ACUITY: 1 day PAIN SCORE: 2/10 LOCATION: Left leg. TECHNIQUE: Venous ultrasound of the leg was performed from the inguinal ligament to the proximal calf. Real-riri e, color Doppler and spectral tracing, compression and augmentation techniques were used. FINDINGS: There is normal compressibility of the deep venous system from the inguinal region to the proximal ca lf. No echogenic clot is seen in the lumen of the common femoral, femoral, popliteal, and posterior tibial veins. There is a normal response of the venous system to proximal and distal augmentation an d respiration. CONCLUSION: Negative exam. No sonographic or Doppler findings of deep venous thrombosis. Rigo Rasmussen MD Board Certified Radiologist. This report was verified electronically.
[2016-06-18] MEDS: CEFEPIME INJ 1,000 MG in SODIUM CHLORIDE 0.9% INJ 100 ML IV SCH ×2 (12:56→21:02)
[2016-06-19] VITALS: BP 114/72; PULSE 100; RESP 20; TEMP 100.1; O2SAT 94
[2016-06-19] MEDS: ACETAMINOPHEN/HYDROcodone 325 MG/7.5 MG TAB PO PRN ×5 (01:05→18:39)
[2016-06-19] MEDS: NS + KCL 20 MEQ INJ 1,000 ML IV SCH ×2 (03:37→15:30)
[2016-06-19 04:00] VITALS: BP 116/69; PULSE 95; RESP 18; TEMP 98; O2SAT 90
[2016-06-19] MEDS: CEFEPIME INJ 1,000 MG in SODIUM CHLORIDE 0.9% INJ 100 ML IV SCH (05:33)
[2016-06-19 08:00] VITALS: BP 124/72; PULSE 92; RESP 18; TEMP 99.4; O2SAT 94
[2016-06-19] MEDS: GABAPENTIN 300 MG CAP PO SCH (09:00)
[2016-06-19] MEDS: ENOXAPARIN SODIUM 40 MG/0.4 ML SYRINGE SQ SCH (09:15)
[2016-06-19] MEDS: MULTIVITAMINS/MINERALS THERAPEUTIC TAB PO SCH ×2 (09:15→20:56)
[2016-06-19] MEDS: VANCOMYCIN INJ 1,000 MG in SODIUM CHLOR 0.9% 250 ML INJ 250 ML IV SCH ×2 (09:16→20:56)
[2016-06-19] MEDS: MAGNESIUM HYDROXIDE SUSP 30 ML CUP PO PRN (09:16)
[2016-06-19] MEDS: SODIUM CHLORIDE 0.9% FLUSH 5 ML FLUSH IVF SCH ×2 (09:16→20:56)
[2016-06-19] MEDS: DOCUSATE SODIUM 100 MG CAP PO SCH ×2 (09:16→20:56)
[2016-06-19 12:00] VITALS: BP 143/81; PULSE 90; RESP 19; TEMP 97; O2SAT 98
--- NOTE | 2016-06-19 12:02 | HHI.PR ---
Subjective Remarks still has persistent fevers T max 102.9 had chills at night denies diarrhea - has not had a BM since yesterday denies cough denies sob states truman is swollen and c/o some redness around it. Objective Vitals Vital Signs Date Time Temp Pulse Resp B/P Pulse Ox O2 Delivery O2 Flow Rate FiO2 06/19/16 08:00 99.4 92 18 124/72 94 06/19/16 04:00 98.0 95 18 116/69 90 06/19/16 00:00 100.1 100 20 114/72 94 06/18/16 20:00 102.9 115 20 113/58 92 06/18/16 16:00 99.5 103 18 119/65 95 06/18/16 12:11 94 Nasal Cannula 21 I/O 06/18/16 06/18/16 06/18/16 06/19/16 06/19/16 06/19/16 07:00 15:00 23:00 07:00 15:00 23:00 Intake Total 700 ml 600 ml 412 ml 117 ml Output Total 1100 ml Balance -400 ml 600 ml 412 ml 117 ml Intake Oral 700 ml 600 ml IV Total 412 ml 117 ml Output Urine Total 1100 ml # Voids 3 # Bowel Movements 0 0 Result Diagram: 06/18/16 0550 06/18/16 0550 Imaging Last Impressions Lower Extremity Ultrasound 06/18/16 0000 Signed Impressions: Service Date/Time: June 10:30 - CONCLUSION: Negative exam. No sonographic or Doppler findings of deep venous thrombosis. Rigo Rasmussen MD Chest X-Ray 06/18/16 0000 Signed Impressions: Service Date/Time: June 09:00 - CONCLUSION: 1. Chronic interstitial changes. No acute abnormality. Lyle Rodriguez MD Knee X-Ray 06/15/16 0718 Signed Impressions: Service Date/Time: Wednesday, June 15, 2016 11:08 - CONCLUSION: Status post total knee arthroplasty. Ye Rodriguez MD Objective Remarks GENERAL: This is a well-nourished, well-developed patient, in no apparent distress. SKIN: No rashes, ecchymoses or lesions. Cool and dry. HEAD: Atraumatic. Normocephalic. No temporal or scalp tenderness. EYES: Pupils equal round and reactive. Extraocular motions intact. No scleral icterus. No injection or drainage. ENT: Nose without bleeding, purulent drainage or septal hematoma. Throat without erythema, tonsillar hypertrophy or exudate. Uvula midline. Airway patent. NECK: Trachea midline. No JVD or lymphadenopathy. Supple, nontender, no meningeal signs. CARDIOVASCULAR: Regular rate and rhythm without murmurs, gallops, or rubs. RESPIRATORY: Clear to auscultation. Breath sounds equal bilaterally. No wheezes , rales, or rhonchi. GASTROINTESTINAL: Abdomen soft, non-tender, nondistended. No hepato-splenomegaly , or palpable masses. No guarding. MUSCULOSKELETAL: Left knee postsurgical incision looks clean, dry. There is some edema around the left knee joint and also some erythema that on closer look looks like broken capillaries, it is mildly warm and there is mild tenderness to palpation. The right lower extremity has no edema, joint pain. no calf tenderness bilaterally. NEUROLOGICAL: Awake and alert. Cranial nerves II through XII intact. Motor and sensory grossly within normal limits. Five out of 5 muscle strength in all muscle groups. Normal speech. Procedures Status post left total knee arthroplasty. Medications and IVs Current Medications Medications (Trade) Dose Ordered Sig/Chery Route Start Time Stop Time Status Last Admin (Norvasc) 5 mg DAILY PO 06/15/16 09:00 Hold (Neurontin) 600 mg DAILY PO 06/15/16 09:00 (Cozaar) 50 mg DAILY PO 06/15/16 09:00 Hold Non-Formulary Medication 25 mg DAILY PO 06/15/16 09:00 Hold (NS Flush) 2 ml UNSCH PRN IVF 06/15/16 07:30 (NS Flush) 2 ml BID IVF 06/15/16 09:00 06/19/16 09:16 (Lovenox Inj) 40 mg Q24H SQ 06/16/16 10:00 06/25/16 10:01 06/19/16 09:15 (Morphine Inj) 3 mg Q3H PRN IV PUSH 06/15/16 07:30 ([place] 7.5-325 Mg) 1 tab Q4H PRN PO 06/15/16 07:30 ([place] 7.5-325 Mg) 2 tab Q4H PRN PO 06/15/16 07:30 06/19/16 09:33 (Theragran M Tab) 1 tab BID PO 06/16/16 21:00 08/15/16 20:59 06/19/16 09:15 (Zofran Inj) 4 mg Q6H PRN IVP 06/15/16 07:30 06/17/16 15:41 (Colace) 100 mg BID PO 06/16/16 21:00 06/19/16 09:16 (Mag-Al Plus Susp Liq) 30 ml Q6H PRN PO 06/15/16 07:30 (Ambien) 5 mg HS PRN PO 06/15/16 07:30 06/15/16 21:24 (Dulcolax Supp) 10 mg DAILY PRN NV 06/15/16 07:30 (Milk Of Magnesia Liq) 30 ml DAILY PRN PO 06/15/16 07:30 06/19/16 09:16 (Narcan Inj) 0.4 mg UNSCH PRN IV 06/15/16 07:30 Diphenhydramine HCl 25 mg 25 mg Q6H PRN IV 06/15/16 07:30 Potassium Chloride/Sodium Chloride 1,000 ml @ 100 mls/hr Q10H IV 06/16/16 17:30 06/16/16 19:28 Vancomycin HCl 1000 mg/Sodium Chloride 250 ml @ 250 mls/hr Q12H IV 06/18/16 09:00 06/19/16 09:16 (Maxipime Inj/NS Inj) 100 ml @ 200 mls/hr Q8H IV 06/18/16 13:00 06/19/16 05:33 Urinary Catheter: No Vascular Central Line Catheter: No A/P Problem List: (1) Primary localized osteoarthrosis, lower leg ICD Code: M17.10 Status: Acute Plan: Synthes is status post left knee arthroplasty. Continue pain control as per orthopedic surgery. Patient currently on [place] and IV morphine for pain control. (2) HTN (hypertension) ICD Code: I10 Status: Acute Plan: Continue to hold antihypertensive medications as blood pressure has been borderline low. 06/17 bp much improved 06/19 BP stable (3) Hyperlipidemia ICD Code: E78.5 Status: Acute Plan: Patient previously on a statin treatment, however this was discontinued due to some adverse effect to the medication. (4) Peripheral neuropathy ICD Code: G62.9 Status: Chronic Plan: Continue gabapentin. The patient states that his neuropathy came on after he fell. (5) Hyperglycemia ICD Code: R73.9 Status: Acute Plan: Patient states that recently he was diagnosed with hyperglycemia 2 months ago. Check hemoglobin A1c ----> patient is prediabetic. Patient would benefit from starting oral metformin upon dc. Will consult dietitian and sql database developer. (6) Hypotension ICD Code: I95.9 Status: Acute Plan: Hypotension likely secondary to anesthetic medications, acute blood loss , we'll give 1 L of IV saline bolus and hold antihypertensive medications. Continue to monitor vital signs. 06/16 patient's hypotension resolved after IV fluid bolus administered yesterday. However this morning and again hypotensive. I will place the patient on normal saline and continue to monitor vital signs. 06/17 BP improved. Continue normal saline 06/19 Resolved - continue IV fluids (7) WILLIE (acute kidney injury) ICD Code: N17.9 Status: Acute Plan: Thank you secondary to hemodynamic instability and hypotension. Creatinine 1.1. Continue to monitor BUN/creatinine, will place on IV fluids, strict I's and O's. (8) SIRS (systemic inflammatory response syndrome) ICD Code: R65.10 Status: Acute Plan: Patient with persistent fevers and chills. MAXIMUM TEMPERATURE 101.7 and tachycardia. Urinalysis negative Doppler ultrasound of the postsurgical extremity is negative for DVT. Patient started on IV vancomycin by orthopedic surgery, I will add cefepime for a broader coverage. Chest x-ray which was reviewed by me shows some chronic interstitial tissue changes - Will order ct chest without IV contast to better asses this chronic interstitial changes. Doppler US negative for DVT Blood cultures negative x1 Consult infectious disease Continue IV normal saline. Will broaden coverage - DC Cefepime, Start Zosyn Fever could be secondary to postsurgical inflammation, however this does not appear to be the case. Suspect fever is non infectious and due to inflammation Assessment and Plan GI prophylaxis: Continue PPI Activity reflexes: SCDs, started on Lovenox as per orthopedic surgery. Discharge Planning Continue to monitor in the medical floor. The patient is not cleared to be discharged. Problem Qualifiers (1) Primary localized osteoarthrosis, lower leg: Qualified Code: M17.11 - Primary localized osteoarthrosis, lower leg, right (2) HTN (hypertension): Qualified Code: I10 - Essential hypertension (3) Peripheral neuropathy: Qualified Code: G62.9 - Peripheral polyneuropathy Lexx Salinas MD Jun 19, 2016 12:02
[2016-06-19] MEDS ORDERED: PIPERACIL-TAZO 4.5 GM PREMIX 100 ML IV SCH (13:00)
[2016-06-19 13:03] LABS: AUTOMATED NEUTROPHIL # 5.4 TH/MM3 (1.8-7.7); BASOPHIL % 0.2 % (0.0-2.0); EOSINOPHIL # 0.1 TH/MM3 (0-0.4); EOSINOPHIL % 1.7 % (0.0-4.0); HEMATOCRIT 30.4 % (39.0-51.0); HEMO FLAGS DIFF FINAL; LYMPH % 5.4 % (9.0-44.0); LYMPHOCYTE # 0.4 TH/MM3 (1.0-4.8); MEAN CELL VOLUME 94.6 FL (80.0-100.0); MEAN CORPUSCULAR HEMOGLOBIN 31.8 PG (27.0-34.0); MEAN CORPUSCULAR HGB CONC 33.7 % (32.0-36.0); MONO % 10.4 % (0.0-8.0); NEUT % 82.3 % (16.0-70.0); PLATELET COUNT 147 TH/MM3 (150-450); RED BLOOD COUNT 3.21 MIL/MM3 (4.50-5.90); RED CELL DISTRIBUTION WIDTH 13.4 % (11.6-17.2); WHITE BLOOD COUNT 6.5 TH/MM3 (4.0-11.0)
[2016-06-19 13:23] LABS: ANION GAP 7 MEQ/L (5-15); AST (GOT) 17 U/L (15-37); BICARBONATE 27.6 MEQ/L (21.0-32.0); BLOOD UREA NITROGEN 17 MG/DL (7-18); CHLORIDE 106 MEQ/L (98-107); GLOMERULAR FILTRATION RATE 68 ML/MIN (>89); POTASSIUM 3.9 MEQ/L (3.5-5.1); SODIUM (NA) 141 MEQ/L (136-145)
[2016-06-19 13:26] LABS: ALKALINE PHOSPHATASE 41 U/L (45-117); ALT (GPT) 17 U/L (12-78); TOTAL BILIRUBIN ADULT 1.1 MG/DL (0.2-1.0)
--- NOTE | 2016-06-19 14:01 | RADRPT ---
EXAM DATE/TIME: 06/19/2016 13:21 [facility] COMPARISON: CHEST SINGLE AP, June 18, 2016, 9:00. INDICATIONS : Abnormal chest x-ray, persistent fevers after knee surgery. RADIATION DOSE: 9.59 CTDIvol (mGy) MEDICAL HISTORY : Cardiovascular disease. Hypertension. SURGICAL HISTORY : None. ENCOUNTER: Initial ACUITY: 1 day PAIN SCALE: 0/10 LOCATION: TECHNIQUE: Volumetric scanning of the chest was performed. Using automated exposure control and adjustment of t he mA and/or kV according to patient size, radiation dose was kept as low as reasonably achievable to obtain optimal diagnostic quality images. FINDINGS: LUNGS: There is no consolidation or pneumothorax. No concerning pulmonary nodule is visualized. There is mi ld scarring at the lung bases. PLEURAE: There is no pleural thickening or pleural effusion. MEDIASTINUM: The heart and great vessels demonstrate no acute abnormality. There is no mediastinal or hilar lymph adenopathy. There are mild coronary artery calcifications. AXILLAE: Within normal limits. No lymphadenopathy. MUSCULOSKELETAL: Within normal limits for patient age. MISCELLANEOUS: The visualized upper abdominal organs demonstrate no acute abnormality. 1 cm low-attenuation lesion i n the right lobe of the thyroid gland. CONCLUSION: 1. Mild scarring with no evidence of pneumonia. 2. 1 cm low attenuation lesion in the right lobe of the thyroid gland which is nonspecific but likely represents an adenoma. This could be further evaluated with outpatient ultrasound. 3. Mild coronary artery calcifications. Dinh Lobo MD on June 19, 2016 at 13:54 Board Certified Radiologist. This report was verified electronically.
[2016-06-19 16:00] VITALS: BP 138/82; PULSE 92; RESP 18; TEMP 97.5; O2SAT 98
--- NOTE | 2016-06-19 16:23 | PD.CONS ---
History of Present Illness Service Infectious disease Consult Requested By Dr. Bustillo Reason for Consult Evaluate patient with postoperative fever Primary Care Physician Alessandro Vale M.D. Diagnoses: History of Present Illness Patient seen and examined. Records reviewed. Patient is a 71-year-old male with history of severe arthritis in the left knee , admitted to the hospital for elective left knee replacement. He had surgery on June 15. Postoperatively he started having fevers on June 17 and has had daily fevers. He denies any significant respiratory complaint. No urinary complaint. He had been constipated and received some laxatives and has had good result. Denies any abdominal pain. He has been doing well as far as doing physical therapy postoperatively. He has significant swelling on the left knee, but no significant pain, and has been doing ambulation using a walker. He also has a CPM machine that is now up to 90 flexion. His urinalysis is unremarkable. Chest x-ray is unremarkable. WBC is normal. His hemoglobin has dropped 2 points from admission. Was 12, and it's down to 10. Patient was initially on cefepime, and vancomycin added, now the cefepime was changed to Zosyn. His LFTs are unremarkable. Patient at times get rigors with his fevers. Infectious disease consultation has been requested to evaluate the patient. Review of Systems Constitutional: COMPLAINS OF: Chills Eyes: DENIES: Eye pain Ears, nose, mouth, throat: DENIES: Nasal discharge, Oral lesions, Ear Pain, Sinus Pain, Toothache Respiratory: DENIES: Cough, Shortness of breath Cardiovascular: DENIES: Chest pain, Palpitations Gastrointestinal: COMPLAINS OF: Diarrhea, DENIES: Abdominal pain, Nausea, Vomiting, Difficulty Swallowing Genitourinary: DENIES: Hematuria, Dysuria, Nocturia Musculoskeletal: COMPLAINS OF: Joint Swelling, Back pain, DENIES: Joint pain Integumentary: DENIES: Rash Neurologic: DENIES: Headache Psychiatric: DENIES: Anxiety, Hallucinations Past Family Social History Allergies: Coded Allergies: Lisinopril (Verified Allergy, Unknown, 06/12/16) Past Medical History Hypertension. Neuropathy after a fall. Hyperglycemia 2 months ago. Vitiligo Had a skin lesion on his right leg that was biopsied a year ago with no evidence of malignancy Also had a lesion in his scrotum, that is currently being evaluated by a jackspooler, had a biopsy done, no malignancy, but other testing are still pending Past Surgical History Arthroscopic surgery of the right knee in 2001. Skin biopsy Active Ordered Medications [place] Antacids Dulcolax Benadryl Colace Lovenox Neurontin MOM Morphine MVI Zofran Zosyn Potassium Vancomycin Ambien Social History Ex smoker. He used to smoke 1 pack per day. The patient states that he drinks alcohol, approximately 1 pack per day, however in preparation to the surgery he has not had a drink in 2 weeks. No illicit drug use Patient is and has 3 daughters. Physical Exam Vital Signs Vital Signs Date Time Temp Pulse Resp B/P Pulse Ox O2 Delivery O2 Flow Rate FiO2 06/19/16 12:00 97.0 90 19 143/81 98 06/19/16 08:00 99.4 92 18 124/72 94 06/19/16 04:00 98.0 95 18 116/69 90 06/19/16 00:00 100.1 100 20 114/72 94 06/18/16 20:00 102.9 115 20 113/58 92 Physical Exam GENERAL: This is a well-nourished, well-developed male, awake and alert, not toxic appearing, in no apparent distress. SKIN: Warm and dry. No generalized rash, has some beginning spider angiomas in his upper chest. Has ecchymosis on his left knee. No embolic lesions noted. HEAD: Atraumatic. Normocephalic. No temporal or scalp tenderness. EYES: [place] conjunctivae, no petechia or hemorrhage. Pupils equal round and reactive. Extraocular motions intact. No scleral icterus. No injection or drainage. ENT: Nose without bleeding, or purulent drainage. Moist oral mucosa. Throat without erythema, or exudate. Uvula midline. Airway patent. NECK: Trachea midline. No JVD or lymphadenopathy. Supple, nontender, no meningeal signs. CARDIOVASCULAR: Regular rate and rhythm without murmurs, gallops, or rubs. RESPIRATORY: Clear to auscultation. Breath sounds equal bilaterally. No wheezes , rales, or rhonchi. GASTROINTESTINAL: Abdomen soft, non-tender, nondistended. Bowel sounds are present and normoactive. No hepato-splenomegaly, or palpable masses. No guarding. MUSCULOSKELETAL: RLE without clubbing, cyanosis, or edema. No joint tenderness , effusion, or edema noted.LLE - L knee incision is dry, no significant drainage. Has surrounding ecchymoses, and has significant swelling of his knee. No calf tenderness. Negative Homans sign bilaterally. NEUROLOGICAL: Awake and alert. Cranial nerves II through XII intact. Motor grossly within normal limits. Normal speech. PSYCH: Normal affect, calm and cooperative LINE: PIV with no evidence of infection Laboratory Laboratory Tests Test 06/19/16 12:40 White Blood Count 6.5 Red Blood Count 3.21 Hemoglobin 10.2 Hematocrit 30.4 Mean Corpuscular Volume 94.6 Mean Corpuscular Hemoglobin 31.8 Mean Corpuscular Hemoglobin 33.7 Concent Red Cell Distribution Width 13.4 Platelet Count 147 Mean Platelet Volume 8.9 Neutrophils (%) (Auto) 82.3 Lymphocytes (%) (Auto) 5.4 Monocytes (%) (Auto) 10.4 Eosinophils (%) (Auto) 1.7 Basophils (%) (Auto) 0.2 Neutrophils # (Auto) 5.4 Lymphocytes # (Auto) 0.4 Monocytes # (Auto) 0.7 Eosinophils # (Auto) 0.1 Basophils # (Auto) 0.0 CBC Comment DIFF FINAL Differential Comment Sodium Level 141 Potassium Level 3.9 Chloride Level 106 Carbon Dioxide Level 27.6 Anion Gap 7 Blood Urea Nitrogen 17 Creatinine 1.07 Estimat Glomerular Filtration 68 Rate Random Glucose 134 Calcium Level 8.6 Total Bilirubin 1.1 Aspartate Amino Transf 17 (AST/SGOT) Alanine Aminotransferase 17 (ALT/SGPT) Alkaline Phosphatase 41 Total Protein 6.6 Albumin 2.9 Date/Time Procedure Status Source Growth 06/18/16 12:51 Aerobic Blood Culture - Preliminary Resulted Blood Peripheral NO GROWTH IN 1 DAY 06/18/16 12:51 Anaerobic Blood Culture - Preliminary Resulted Blood Peripheral NO GROWTH IN 1 DAY Result Diagram: 06/19/16 1240 06/19/16 1240 Imaging RADIOLOGY STUDIES/FILMS REVIEWED Chest CT 06/19/16 0000 Signed Impressions: Service Date/Time: Sunday, June 19, 2016 13:21 - CONCLUSION: 1. Mild scarring with no evidence of pneumonia. 2. 1 cm low attenuation lesion in the right lobe of the thyroid gland which is nonspecific but likely represents an adenoma. This could be further evaluated with outpatient ultrasound. 3. Mild coronary artery calcifications. Dinh Lobo MD Lower Extremity Ultrasound 06/18/16 0000 Signed Impressions: Service Date/Time: June 10:30 - CONCLUSION: Negative exam. No sonographic or Doppler findings of deep venous thrombosis. Rigo Rasmussen MD Chest X-Ray 06/18/16 0000 Signed Impressions: Service Date/Time: June 09:00 - CONCLUSION: 1. Chronic interstitial changes. No acute abnormality. Lyle Rodriguez MD Knee X-Ray 06/15/16 0718 Signed Impressions: Service Date/Time: Wednesday, June 15, 2016 11:08 - CONCLUSION: Status post total knee arthroplasty. Ye Rodriguez MD Assessment and Plan Assessment and Plan IMPRESSION Post-op fever, no obvious source of infection, ?due to L knee, seems to have hemarthrosis - he looks clinically good S/P L TKA Anemia post-op, ?due to hemarthrosis, ?retroperitoneal, but he denies any abdominal pain RECOMMENDATION Check ESR and CRP Follow C/S Stop Zosyn Continue Vancomycin for now If BC negative, will stop Vancomycin If still with fever, do CT A/P Monitor temps Monitor progress Will follow along with you Thank you for this consultation Discussed Condition With Explained plan to patient D/W Munira Finch MD Jun 19, 2016 16:23
[2016-06-19] MEDS ORDERED: Vancomycin Consult Pharmacy 1 EA OTHER SCH (16:45)
--- NOTE | 2016-06-19 17:43 | PD.ORT.PN ---
Subjective Post Op Day #: 4 Subjective Remarks pain controlled. states he is feeling better. last temp was last night. not currently having the chills. Objective Vitals Vital Signs Date Time Temp Pulse Resp B/P Pulse Ox O2 Delivery O2 Flow Rate FiO2 06/19/16 12:00 97.0 90 19 143/81 98 06/19/16 08:00 99.4 92 18 124/72 94 06/19/16 04:00 98.0 95 18 116/69 90 06/19/16 00:00 100.1 100 20 114/72 94 06/18/16 20:00 102.9 115 20 113/58 92 I/O 06/18/16 06/18/16 06/18/16 06/19/16 06/19/16 06/19/16 07:00 15:00 23:00 07:00 15:00 23:00 Intake Total 700 ml 600 ml 412 ml 117 ml Output Total 1100 ml Balance -400 ml 600 ml 412 ml 117 ml Intake Oral 700 ml 600 ml IV Total 412 ml 117 ml Output Urine Total 1100 ml # Voids 3 # Bowel Movements 0 0 Result Diagram: 06/19/16 1240 06/19/16 1240 Imaging Last [address] 06/19/16 0000 Signed Impressions: Service Date/Time: Sunday, June 19, 2016 13:21 - CONCLUSION: 1. Mild scarring with no evidence of pneumonia. 2. 1 cm low attenuation lesion in the right lobe of the thyroid gland which is nonspecific but likely represents an adenoma. This could be further evaluated with outpatient ultrasound. 3. Mild coronary artery calcifications. Dinh Lobo MD Objective Remarks in bed, nad, incision no erythema, no drainage ecchymosis medial knee and distal incision swelling knee as expected neg homans nvi Assessment & Plan Ortho Post Op Day #: 4 Problem List: Assessment and Plan s/p L TKA wbat daily dressing changes lovenox - d/c on Eliquis IS and OOB fever of unknown origin - UA neg, CXR and US neg, blood cultures NGTD vanco continue to monitor ID following d/c planning home with [facility] and pt - hold today rx in chart f/up dr. trejo 2 weeks Adi Pierce Jun 19, 2016 17:43
[2016-06-19 20:00] VITALS: BP 136/80; PULSE 112; RESP 20; TEMP 100.9; O2SAT 96
[2016-06-20] MEDS: NS + KCL 20 MEQ INJ 1,000 ML IV SCH ×3 (00:10→21:30)
[2016-06-20] MEDS: ACETAMINOPHEN/HYDROcodone 325 MG/7.5 MG TAB PO PRN ×5 (00:10→17:57)
[2016-06-20 00:25] VITALS: BP 131/70; PULSE 104; RESP 18; TEMP 101.1; O2SAT 93
[2016-06-20 05:14] VITALS: BP 148/88; PULSE 95; RESP 18; TEMP 100; O2SAT 96
[2016-06-20 07:41] VITALS: BP 153/88; PULSE 103; RESP 18; TEMP 99.7; O2SAT 91
[2016-06-20 07:45] LABS: AUTOMATED NEUTROPHIL # 4.1 TH/MM3 (1.8-7.7); BASOPHIL % 0.5 % (0.0-2.0); EOSINOPHIL # 0.2 TH/MM3 (0-0.4); EOSINOPHIL % 3.3 % (0.0-4.0); HEMATOCRIT 26.7 % (39.0-51.0); HEMO FLAGS DIFF FINAL; LYMPH % 8.8 % (9.0-44.0); LYMPHOCYTE # 0.5 TH/MM3 (1.0-4.8); MEAN CELL VOLUME 93.6 FL (80.0-100.0); MEAN CORPUSCULAR HEMOGLOBIN 32.2 PG (27.0-34.0); MEAN CORPUSCULAR HGB CONC 34.4 % (32.0-36.0); MONO % 11.4 % (0.0-8.0); PLATELET COUNT 131 TH/MM3 (150-450); RED BLOOD COUNT 2.85 MIL/MM3 (4.50-5.90); RED CELL DISTRIBUTION WIDTH 13.2 % (11.6-17.2); WHITE BLOOD COUNT 5.4 TH/MM3 (4.0-11.0)
--- NOTE | 2016-06-20 07:55 | PD.ORT.PN ---
Subjective Post Op Day #: 5 Subjective Remarks pain controlled. states he is feeling better. continues to have fever at night time. Objective Vitals Vital Signs Date Time Temp Pulse Resp B/P Pulse Ox O2 Delivery O2 Flow Rate FiO2 06/20/16 05:14 100.0 95 18 148/88 96 06/20/16 00:25 101.1 104 18 131/70 93 06/19/16 20:00 100.9 112 20 136/80 96 06/19/16 16:00 97.5 92 18 138/82 98 06/19/16 12:00 97.0 90 19 143/81 98 06/19/16 08:00 99.4 92 18 124/72 94 I/O 06/19/16 06/19/16 06/19/16 06/20/16 06/20/16 06/20/16 07:00 15:00 23:00 07:00 15:00 23:00 Intake Total 117 ml 620 ml 1211 ml 1007 ml Output Total 800 ml 500 ml Balance 117 ml 620 ml 411 ml 507 ml Intake Oral 620 ml 800 ml 360 ml IV Total 117 ml 411 ml 647 ml Output Urine Total 800 ml 500 ml # Voids 4 # Bowel Movements 0 0 Result Diagram: 06/20/16 0652 06/19/16 1240 Imaging Last [address] 06/19/16 0000 Signed Impressions: Service Date/Time: Sunday, June 19, 2016 13:21 - CONCLUSION: 1. Mild scarring with no evidence of pneumonia. 2. 1 cm low attenuation lesion in the right lobe of the thyroid gland which is nonspecific but likely represents an adenoma. This could be further evaluated with outpatient ultrasound. 3. Mild coronary artery calcifications. Dinh Lobo MD Objective Remarks in bed, nad, incision no erythema, no drainage ecchymosis medial knee and distal incision swelling knee as expected neg homans nvi Assessment & Plan Ortho Post Op Day #: 5 Problem List: Assessment and Plan s/p L TKA wbat daily dressing changes lovenox - d/c on Eliquis IS and OOB fever of unknown origin - UA neg, CXR and US neg, blood cultures NGTD vanco continue to monitor ID following d/c planning home with [facility] and pt - monitor today rx in chart f/up dr. trejo 2 weeks Adi Pierce Jun 20, 2016 07:55
[2016-06-20 08:14] LABS: ALKALINE PHOSPHATASE 41 U/L (45-117); ALT (GPT) 16 U/L (12-78); ANION GAP 9 MEQ/L (5-15); AST (GOT) 14 U/L (15-37); BICARBONATE 26.2 MEQ/L (21.0-32.0); BLOOD UREA NITROGEN 14 MG/DL (7-18); CHLORIDE 107 MEQ/L (98-107); GLOMERULAR FILTRATION RATE 73 ML/MIN (>89); POTASSIUM 3.7 MEQ/L (3.5-5.1); SODIUM (NA) 142 MEQ/L (136-145); TOTAL BILIRUBIN ADULT 0.9 MG/DL (0.2-1.0)
[2016-06-20] MEDS ORDERED: PHARMACY ORDERED LAB XX ONE (08:45)
[2016-06-20] MEDS: MULTIVITAMINS/MINERALS THERAPEUTIC TAB PO SCH ×2 (08:51→20:35)
[2016-06-20] MEDS: DOCUSATE SODIUM 100 MG CAP PO SCH ×2 (08:52→20:35)
[2016-06-20] MEDS: MAGNESIUM HYDROXIDE SUSP 30 ML CUP PO PRN (08:54)
[2016-06-20] MEDS: SODIUM CHLORIDE 0.9% FLUSH 5 ML FLUSH IVF SCH ×2 (08:55→20:35)
[2016-06-20] MEDS: GABAPENTIN 300 MG CAP PO SCH (08:56)
[2016-06-20] MEDS: ENOXAPARIN SODIUM 40 MG/0.4 ML SYRINGE SQ SCH (08:59)
--- NOTE | 2016-06-20 10:44 | HHI.PR ---
Subjective Remarks Still with spikes of fevers. Says she has less chills associated. Says he has pain in his left thigh when he went to the chair today. No n/v/d/. Has constipation x 3 days now. Objective Vitals Vital Signs Date Time Temp Pulse Resp B/P Pulse Ox O2 Delivery O2 Flow Rate FiO2 06/20/16 07:41 99.7 103 18 153/88 91 06/20/16 05:14 100.0 95 18 148/88 96 06/20/16 00:25 101.1 104 18 131/70 93 06/19/16 20:00 100.9 112 20 136/80 96 06/19/16 16:00 97.5 92 18 138/82 98 06/19/16 12:00 97.0 90 19 143/81 98 I/O 06/19/16 06/19/16 06/19/16 06/20/16 06/20/16 06/20/16 07:00 15:00 23:00 07:00 15:00 23:00 Intake Total 117 ml 620 ml 1211 ml 1007 ml Output Total 800 ml 500 ml Balance 117 ml 620 ml 411 ml 507 ml Intake Oral 620 ml 800 ml 360 ml IV Total 117 ml 411 ml 647 ml Output Urine Total 800 ml 500 ml # Voids 4 # Bowel Movements 0 0 Result Diagram: 06/20/16 0652 06/20/16 0652 Imaging Last Impressions Chest CT 06/19/16 0000 Signed Impressions: Service Date/Time: Sunday, June 19, 2016 13:21 - CONCLUSION: 1. Mild scarring with no evidence of pneumonia. 2. 1 cm low attenuation lesion in the right lobe of the thyroid gland which is nonspecific but likely represents an adenoma. This could be further evaluated with outpatient ultrasound. 3. Mild coronary artery calcifications. Dinh Lobo MD Lower Extremity Ultrasound 06/18/16 0000 Signed Impressions: Service Date/Time: June 10:30 - CONCLUSION: Negative exam. No sonographic or Doppler findings of deep venous thrombosis. Rigo Rasmussen MD Chest X-Ray 06/18/16 0000 Signed Impressions: Service Date/Time: June 09:00 - CONCLUSION: 1. Chronic interstitial changes. No acute abnormality. Lyle Rodriguez MD Knee X-Ray 06/15/16 0718 Signed Impressions: Service Date/Time: Wednesday, June 15, 2016 11:08 - CONCLUSION: Status post total knee arthroplasty. Ye Rodriguez MD Objective Remarks GENERAL: This is a 71 yo male, well-nourished, well-developed patient, in no apparent distress. SKIN: No rashes, ecchymoses or lesions. Cool and dry. HEAD: Atraumatic. Normocephalic. No temporal or scalp tenderness. EYES: Pupils equal round and reactive. Extraocular motions intact. No scleral icterus. No injection or drainage. ENT: Nose without bleeding, purulent drainage or septal hematoma. Throat without erythema, tonsillar hypertrophy or exudate. Uvula midline. Airway patent. NECK: Trachea midline. No JVD or lymphadenopathy. Supple, nontender, no meningeal signs. CARDIOVASCULAR: Regular rate and rhythm without murmurs, gallops, or rubs. RESPIRATORY: Clear to auscultation. Breath sounds equal bilaterally. No wheezes , rales, or rhonchi. GASTROINTESTINAL: Abdomen soft, non-tender, nondistended. No hepato-splenomegaly , or palpable masses. No guarding. MUSCULOSKELETAL: Left knee postsurgical incision looks clean, dry. There is some edema around the left knee joint and also some erythema that on closer look looks like broken capillaries, it is mildly warm and there is mild tenderness to palpation. The right lower extremity has no edema, joint pain. no calf tenderness bilaterally. NEUROLOGICAL: Awake and alert. Cranial nerves II through XII intact. Motor and sensory grossly within normal limits. Five out of 5 muscle strength in all muscle groups. Normal speech. Procedures Status post left total knee arthroplasty. A/P Problem List: (1) Primary localized osteoarthrosis, lower leg ICD Code: M17.10 Status: Acute (2) HTN (hypertension) ICD Code: I10 Status: Acute (3) Hyperlipidemia ICD Code: E78.5 Status: Acute (4) Peripheral neuropathy ICD Code: G62.9 Status: Chronic (5) Hyperglycemia ICD Code: R73.9 Status: Acute (6) Hypotension ICD Code: I95.9 Status: Acute (7) WILLIE (acute kidney injury) ICD Code: N17.9 Status: Acute (8) SIRS (systemic inflammatory response syndrome) ICD Code: R65.10 Status: Acute Assessment and Plan SIRS (systemic inflammatory response syndrome) Patient with persistent fevers and chills. MAXIMUM TEMPERATURE 101.1 and tachycardia. Urinalysis negative Doppler ultrasound of the postsurgical extremity is negative for DVT. Patient started on IV vancomycin by orthopedic surgery, I will add cefepime for a broader coverage. Chest x-ray which was reviewed by me shows some chronic interstitial tissue changes - CT chest without IV contrast to better asses this chronic interstitial changes, reviewed Doppler US negative for DVT Blood cultures negative to date Consult infectious disease Continue IV normal saline. Broaden coverage - DC Cefepime, Start Zosyn. Primary localized osteoarthrosis, lower leg Synthes is status post left knee arthroplasty. Continue pain control as per orthopedic surgery. Patient currently on [place] and IV morphine for pain control. HTN (hypertension) Continue to hold antihypertensive medications as blood pressure has been borderline low. 06/17 bp much improved 06/19 BP stable Hyperlipidemia Patient previously on a statin treatment, however this was discontinued due to some adverse effect to the medication. Peripheral neuropathy Continue gabapentin. The patient states that his neuropathy came on after he fell. Hyperglycemia Patient states that recently he was diagnosed with hyperglycemia 2 months ago. Check hemoglobin A1c ----> patient is prediabetic. Patient would benefit from starting oral metformin upon dc. Will consult dietitian and elementary educator. Hypotension Hypotension likely secondary to anesthetic medications, acute blood loss, we' ll give 1 L of IV saline bolus and hold antihypertensive medications. Continue to monitor vital signs. 06/16 patient's hypotension resolved after IV fluid bolus administered yesterday. However this morning and again hypotensive. I will place the patient on normal saline and continue to monitor vital signs. 06/17 BP improved. Continue normal saline 06/19 Resolved - continue IV fluids WILLIE (acute kidney injury) Thank you secondary to hemodynamic instability and hypotension. Creatinine 1.1. Continue to monitor BUN/creatinine, will place on IV fluids, strict I's and O's. GI prophylaxis: Continue PPI Activity reflexes: SCDs, started on Lovenox as per orthopedic surgery. Discharge Planning Continue to monitor on the medical floor. The patient is not cleared to be discharged. Problem Qualifiers (1) Primary localized osteoarthrosis, lower leg: Qualified Code: M17.11 - Primary localized osteoarthrosis, lower leg, right (2) HTN (hypertension): Qualified Code: I10 - Essential hypertension (3) Peripheral neuropathy: Qualified Code: G62.9 - Peripheral polyneuropathy Rosey Hamilton MD Jun 20, 2016 10:44 Activity reflexes: SCDs, started on Lovenox as per orthopedic surgery. Discharge Planning Continue to monitor in the medical floor. The patient is not cleared to be discharged. Problem Qualifiers (1) Primary localized osteoarthrosis, lower leg: Qualified Code: M17.11 - Primary localized osteoarthrosis, lower leg, right (2) HTN (hypertension): Qualified Code: I10 - Essential hypertension (3) Peripheral neuropathy: Qualified Code: G62.9 - Peripheral polyneuropathy Rosey Hamilton MD Jun 20, 2016 10:44
[2016-06-20 11:20] VITALS: BP 131/74; PULSE 100; RESP 18; TEMP 96.9; O2SAT 95
[2016-06-20] MEDS: VANCOMYCIN INJ 1,000 MG in SODIUM CHLOR 0.9% 250 ML INJ 250 ML IV SCH (12:21)
[2016-06-20 15:48] VITALS: BP 129/73; PULSE 90; RESP 18; TEMP 99.2; O2SAT 94
[2016-06-20 20:37] VITALS: BP 115/54; PULSE 117; RESP 20; TEMP 99.3; O2SAT 92
[2016-06-21] MEDS: VANCOMYCIN INJ 2,000 MG in SODIUM CHLORID 0.9% 500 ML INJ 500 ML IV SCH ×2 (00:29→17:20)
[2016-06-21] MEDS: ACETAMINOPHEN/HYDROcodone 325 MG/7.5 MG TAB PO PRN ×5 (00:29→21:41)
[2016-06-21 00:36] VITALS: BP 155/89; PULSE 115; RESP 20; TEMP 101.8; O2SAT 95
[2016-06-21 04:46] VITALS: BP 155/95; PULSE 107; RESP 20; TEMP 97.3; O2SAT 94
[2016-06-21 06:30] LABS: AUTOMATED NEUTROPHIL # 3.9 TH/MM3 (1.8-7.7); BASOPHIL # 0.1 TH/MM3 (0-0.2); BASOPHIL % 1.1 % (0.0-2.0); EOSINOPHIL # 0.1 TH/MM3 (0-0.4); EOSINOPHIL % 1.6 % (0.0-4.0); HEMATOCRIT 29.9 % (39.0-51.0); HEMO FLAGS DIFF FINAL; LYMPHOCYTE # 0.5 TH/MM3 (1.0-4.8); MEAN CELL VOLUME 93.6 FL (80.0-100.0); MEAN CORPUSCULAR HEMOGLOBIN 31.6 PG (27.0-34.0); MEAN CORPUSCULAR HGB CONC 33.8 % (32.0-36.0); MONO % 14.9 % (0.0-8.0); NEUT % 72.4 % (16.0-70.0); PLATELET COUNT 157 TH/MM3 (150-450); RED BLOOD COUNT 3.19 MIL/MM3 (4.50-5.90); RED CELL DISTRIBUTION WIDTH 13.7 % (11.6-17.2); WHITE BLOOD COUNT 5.4 TH/MM3 (4.0-11.0)
[2016-06-21 07:14] LABS: BICARBONATE 26.1 MEQ/L (21.0-32.0); MAGNESIUM 2.4 MG/DL (1.5-2.5)
[2016-06-21] MEDS: NS + KCL 20 MEQ INJ 1,000 ML IV SCH ×2 (07:30→17:30)
[2016-06-21 07:39] VITALS: BP 163/94; PULSE 105; RESP 17; TEMP 98.7; O2SAT 97
[2016-06-21] MEDS: DOCUSATE SODIUM 100 MG CAP PO SCH ×2 (08:05→21:34)
[2016-06-21] MEDS: MULTIVITAMINS/MINERALS THERAPEUTIC TAB PO SCH ×2 (08:05→21:39)
[2016-06-21] MEDS: GABAPENTIN 300 MG CAP PO SCH (08:06)
[2016-06-21] MEDS: ENOXAPARIN SODIUM 40 MG/0.4 ML SYRINGE SQ SCH (08:06)
--- NOTE | 2016-06-21 08:07 | PD.ORT.PN ---
Subjective Post Op Day #: 6 Subjective Remarks pain controlled. states he is feeling better. fever improving but still spiked last night. Objective Vitals Vital Signs Date Time Temp Pulse Resp B/P Pulse Ox O2 Delivery O2 Flow Rate FiO2 06/21/16 04:46 97.3 107 20 155/95 94 06/21/16 00:36 101.8 115 20 155/89 95 06/20/16 20:37 99.3 117 20 115/54 92 06/20/16 15:48 99.2 90 18 129/73 94 06/20/16 11:20 96.9 100 18 131/74 95 I/O 06/20/16 06/20/16 06/20/16 06/21/16 06/21/16 06/21/16 07:00 15:00 23:00 07:00 15:00 23:00 Intake Total 1007 ml 960 ml Output Total 500 ml 200 ml 100 ml Balance 507 ml 960 ml -200 ml -100 ml Intake Oral 360 ml 960 ml IV Total 647 ml Output Urine Total 500 ml 200 ml 100 ml # Voids 4 # Bowel Movements 0 1 1 Result Diagram: 06/21/16 0602 06/21/16 0602 Imaging Last [address] 06/19/16 0000 Signed Impressions: Service Date/Time: Sunday, June 19, 2016 13:21 - CONCLUSION: 1. Mild scarring with no evidence of pneumonia. 2. 1 cm low attenuation lesion in the right lobe of the thyroid gland which is nonspecific but likely represents an adenoma. This could be further evaluated with outpatient ultrasound. 3. Mild coronary artery calcifications. Dinh Lobo MD Objective Remarks in bed, nad, incision no erythema, no drainage ecchymosis medial knee and distal incision swelling knee as expected neg homans nvi Assessment & Plan Ortho Post Op Day #: 6 Problem List: Assessment and Plan s/p L TKA wbat daily dressing changes lovenox - d/c on Eliquis IS and OOB fever of unknown origin - UA neg, CXR and US neg, blood cultures NGTD vanco continue to monitor ID following d/c planning home with [facility] and pt - monitor today rx in chart f/up dr. trejo 2 weeks Adi Pierce Jun 21, 2016 08:07
[2016-06-21] MEDS: SODIUM CHLORIDE 0.9% FLUSH 5 ML FLUSH IVF SCH ×2 (09:00→21:00)
[2016-06-21] MEDS ORDERED: ACETAMINOPHEN 1000 MG/100 ML VIAL IV PRN (10:00)
[2016-06-21 11:20] VITALS: BP 144/85; PULSE 96; RESP 17; TEMP 96.5; O2SAT 95
--- NOTE | 2016-06-21 13:39 | HHI.PR ---
Subjective Remarks Patient says he feels pain when he is in the chair. He was walking. Had spike of fever. Had a BM. No n/v/d/c. Objective Vitals Vital Signs Date Time Temp Pulse Resp B/P Pulse Ox O2 Delivery O2 Flow Rate FiO2 06/21/16 07:39 98.7 105 17 163/94 97 06/21/16 04:46 97.3 107 20 155/95 94 06/21/16 00:36 101.8 115 20 155/89 95 06/20/16 20:37 99.3 117 20 115/54 92 06/20/16 15:48 99.2 90 18 129/73 94 I/O 06/20/16 06/20/16 06/20/16 06/21/16 06/21/16 06/21/16 07:00 15:00 23:00 07:00 15:00 23:00 Intake Total 1007 ml 960 ml Output Total 500 ml 200 ml 100 ml Balance 507 ml 960 ml -200 ml -100 ml Intake Oral 360 ml 960 ml IV Total 647 ml Output Urine Total 500 ml 200 ml 100 ml # Voids 4 # Bowel Movements 0 1 1 Result Diagram: 06/21/16 0602 06/21/16 0602 Imaging Last Impressions Chest CT 06/19/16 0000 Signed Impressions: Service Date/Time: Sunday, June 19, 2016 13:21 - CONCLUSION: 1. Mild scarring with no evidence of pneumonia. 2. 1 cm low attenuation lesion in the right lobe of the thyroid gland which is nonspecific but likely represents an adenoma. This could be further evaluated with outpatient ultrasound. 3. Mild coronary artery calcifications. Dinh Lobo MD Lower Extremity Ultrasound 06/18/16 0000 Signed Impressions: Service Date/Time: June 10:30 - CONCLUSION: Negative exam. No sonographic or Doppler findings of deep venous thrombosis. Rigo Rasmussen MD Chest X-Ray 06/18/16 0000 Signed Impressions: Service Date/Time: June 09:00 - CONCLUSION: 1. Chronic interstitial changes. No acute abnormality. Lyle Rodriguez MD Knee X-Ray 06/15/16 0718 Signed Impressions: Service Date/Time: Wednesday, June 15, 2016 11:08 - CONCLUSION: Status post total knee arthroplasty. Ye Rodriguez MD Objective Remarks GENERAL: This is a 71 yo male, well-nourished, well-developed patient, in no apparent distress. SKIN: No rashes, ecchymoses or lesions. Cool and dry. HEAD: Atraumatic. Normocephalic. No temporal or scalp tenderness. EYES: Pupils equal round and reactive. Extraocular motions intact. No scleral icterus. No injection or drainage. ENT: Nose without bleeding, purulent drainage or septal hematoma. Throat without erythema, tonsillar hypertrophy or exudate. Uvula midline. Airway patent. NECK: Trachea midline. No JVD or lymphadenopathy. Supple, nontender, no meningeal signs. CARDIOVASCULAR: Regular rate and rhythm without murmurs, gallops, or rubs. RESPIRATORY: Clear to auscultation. Breath sounds equal bilaterally. No wheezes , rales, or rhonchi. GASTROINTESTINAL: Abdomen soft, non-tender, nondistended. No hepato-splenomegaly , or palpable masses. No guarding. MUSCULOSKELETAL: Left knee postsurgical incision looks clean, dry. There is some edema around the left knee joint and also some erythema that on closer look looks like broken capillaries, it is mildly warm and there is mild tenderness to palpation. The right lower extremity has no edema, joint pain. no calf tenderness bilaterally. NEUROLOGICAL: Awake and alert. Cranial nerves II through XII intact. Motor and sensory grossly within normal limits. Five out of 5 muscle strength in all muscle groups. Normal speech. Procedures Status post left total knee arthroplasty. A/P Problem List: (1) Primary localized osteoarthrosis, lower leg ICD Code: M17.10 Status: Acute (2) HTN (hypertension) ICD Code: I10 Status: Acute (3) Hyperlipidemia ICD Code: E78.5 Status: Acute (4) Peripheral neuropathy ICD Code: G62.9 Status: Chronic (5) Hyperglycemia ICD Code: R73.9 Status: Acute (6) Hypotension ICD Code: I95.9 Status: Acute (7) WILLIE (acute kidney injury) ICD Code: N17.9 Status: Acute (8) SIRS (systemic inflammatory response syndrome) ICD Code: R65.10 Status: Acute Assessment and Plan SIRS (systemic inflammatory response syndrome) Patient with persistent fevers and chills. MAXIMUM TEMPERATURE 101.1 and tachycardia. Urinalysis negative Doppler ultrasound of the postsurgical extremity is negative for DVT. Patient started on IV vancomycin by orthopedic surgery, I will add cefepime for a broader coverage. Chest x-ray which was reviewed by me shows some chronic interstitial tissue changes - CT chest without IV contrast to better asses this chronic interstitial changes, reviewed Doppler US negative for DVT Blood cultures negative to date Consult infectious disease Continue IV normal saline. Broaden coverage - DC Cefepime, Start Zosyn. Primary localized osteoarthrosis, lower leg Synthes is status post left knee arthroplasty. Continue pain control as per orthopedic surgery. Patient currently on [place] and IV morphine for pain control. HTN (hypertension) Continue to hold antihypertensive medications as blood pressure has been borderline low. 06/17 bp much improved 06/19 BP stable Hyperlipidemia Patient previously on a statin treatment, however this was discontinued due to some adverse effect to the medication. Peripheral neuropathy Continue gabapentin. The patient states that his neuropathy came on after he fell. Hyperglycemia Patient states that recently he was diagnosed with hyperglycemia 2 months ago. Check hemoglobin A1c ----> patient is prediabetic. Patient would benefit from starting oral metformin upon dc. Will consult dietitian and early childhood educator aide. Hypotension Hypotension likely secondary to anesthetic medications, acute blood loss, we' ll give 1 L of IV saline bolus and hold antihypertensive medications. Continue to monitor vital signs. 06/16 patient's hypotension resolved after IV fluid bolus administered yesterday. However this morning and again hypotensive. I will place the patient on normal saline and continue to monitor vital signs. 06/17 BP improved. Continue normal saline 06/19 Resolved - continue IV fluids WILLIE (acute kidney injury) Thank you secondary to hemodynamic instability and hypotension. Creatinine 1.1. Continue to monitor BUN/creatinine, will place on IV fluids, strict I's and O's. GI prophylaxis: Continue PPI Activity reflexes: SCDs, started on Lovenox as per orthopedic surgery. Discharge Planning Continue to monitor on the medical floor. The patient is not cleared to be discharged. Problem Qualifiers (1) Primary localized osteoarthrosis, lower leg: Qualified Code: M17.11 - Primary localized osteoarthrosis, lower leg, right (2) HTN (hypertension): Qualified Code: I10 - Essential hypertension (3) Peripheral neuropathy: Qualified Code: G62.9 - Peripheral polyneuropathy Rosey Hamilton MD Jun 21, 2016 13:39
[2016-06-21 15:50] VITALS: BP 160/92; PULSE 99; RESP 17; TEMP 96.8; O2SAT 95
[2016-06-21 20:45] VITALS: BP 162/82; PULSE 107; RESP 18; TEMP 98.5; O2SAT 94
[2016-06-22 00:50] VITALS: BP 157/96; PULSE 99; RESP 21; TEMP 97.4; O2SAT 97
[2016-06-22] MEDS: ACETAMINOPHEN/HYDROcodone 325 MG/7.5 MG TAB PO PRN ×4 (01:40→18:12)
[2016-06-22] MEDS: NS + KCL 20 MEQ INJ 1,000 ML IV SCH ×2 (03:30→13:30)
[2016-06-22 04:33] VITALS: BP 142/89; PULSE 98; RESP 17; TEMP 96.9; O2SAT 92
[2016-06-22 07:36] VITALS: BP 170/92; PULSE 100; RESP 18; TEMP 99.1; O2SAT 95
[2016-06-22] MEDS: MULTIVITAMINS/MINERALS THERAPEUTIC TAB PO SCH (09:12)
[2016-06-22] MEDS: ENOXAPARIN SODIUM 40 MG/0.4 ML SYRINGE SQ SCH (09:12)
[2016-06-22] MEDS: DOCUSATE SODIUM 100 MG CAP PO SCH (09:12)
[2016-06-22] MEDS: GABAPENTIN 300 MG CAP PO SCH (09:12)
[2016-06-22] MEDS: SODIUM CHLORIDE 0.9% FLUSH 5 ML FLUSH IVF SCH (09:20)
[2016-06-22 11:29] VITALS: BP 148/81; PULSE 100; RESP 18; TEMP 96.7; O2SAT 94
--- NOTE | 2016-06-22 11:44 | PD.ORT.PN ---
Subjective Subjective Remarks pain controlled. states he is feeling better. fever improved. Objective Vitals Vital Signs Date Time Temp Pulse Resp B/P Pulse Ox O2 Delivery O2 Flow Rate FiO2 06/22/16 07:36 99.1 100 18 170/92 95 06/22/16 04:33 96.9 98 17 142/89 92 06/22/16 00:50 97.4 99 21 157/96 97 06/21/16 20:45 98.5 107 18 162/82 94 06/21/16 15:50 96.8 99 17 160/92 95 I/O 06/21/16 06/21/16 06/21/16 06/22/16 06/22/16 06/22/16 07:00 15:00 23:00 07:00 15:00 23:00 Intake Total 960 ml 480 ml Output Total 100 ml 300 ml 500 ml Balance -100 ml 960 ml 180 ml -500 ml Intake Oral 960 ml 480 ml Output Urine Total 100 ml 300 ml 500 ml # Voids 3 # Bowel Movements 1 0 0 Result Diagram: 06/21/16 0602 06/21/16 0602 Imaging Last [address] 06/19/16 0000 Signed Impressions: Service Date/Time: Sunday, June 19, 2016 13:21 - CONCLUSION: 1. Mild scarring with no evidence of pneumonia. 2. 1 cm low attenuation lesion in the right lobe of the thyroid gland which is nonspecific but likely represents an adenoma. This could be further evaluated with outpatient ultrasound. 3. Mild coronary artery calcifications. Dinh Lobo MD Objective Remarks in bed, nad, incision no erythema, no drainage ecchymosis medial knee and distal incision swelling knee as expected neg homans nvi Assessment & Plan Assessment and Plan s/p L TKA wbat daily dressing changes lovenox - d/c on Eliquis IS and OOB fever of unknown origin - UA neg, CXR and US neg, blood cultures NGTD vanco continue to monitor ID following d/c planning home with [facility] and pt - cleared by ortho, need clearance by med rx in chart f/up dr. trejo 2 weeks Adi Pierce Jun 22, 2016 11:44
--- NOTE | 2016-06-22 12:37 | HHI.PR ---
Subjective Remarks Feel much better walking in the room ; Has a large BM yesterday. No fever overnight. Objective Vitals Vital Signs Date Time Temp Pulse Resp B/P Pulse Ox O2 Delivery O2 Flow Rate FiO2 06/22/16 07:36 99.1 100 18 170/92 95 06/22/16 04:33 96.9 98 17 142/89 92 06/22/16 00:50 97.4 99 21 157/96 97 06/21/16 20:45 98.5 107 18 162/82 94 06/21/16 15:50 96.8 99 17 160/92 95 I/O 06/21/16 06/21/16 06/21/16 06/22/16 06/22/16 06/22/16 07:00 15:00 23:00 07:00 15:00 23:00 Intake Total 960 ml 480 ml Output Total 100 ml 300 ml 500 ml Balance -100 ml 960 ml 180 ml -500 ml Intake Oral 960 ml 480 ml Output Urine Total 100 ml 300 ml 500 ml # Voids 3 # Bowel Movements 1 0 0 Result Diagram: 06/21/16 0602 06/21/16 0602 Imaging Last Impressions Chest CT 06/19/16 0000 Signed Impressions: Service Date/Time: Sunday, June 19, 2016 13:21 - CONCLUSION: 1. Mild scarring with no evidence of pneumonia. 2. 1 cm low attenuation lesion in the right lobe of the thyroid gland which is nonspecific but likely represents an adenoma. This could be further evaluated with outpatient ultrasound. 3. Mild coronary artery calcifications. Dinh Lobo MD Lower Extremity Ultrasound 06/18/16 0000 Signed Impressions: Service Date/Time: June 10:30 - CONCLUSION: Negative exam. No sonographic or Doppler findings of deep venous thrombosis. Rigo Rasmussen MD Chest X-Ray 06/18/16 0000 Signed Impressions: Service Date/Time: June 09:00 - CONCLUSION: 1. Chronic interstitial changes. No acute abnormality. Lyle Rodriguez MD Knee X-Ray 06/15/16 0718 Signed Impressions: Service Date/Time: Wednesday, June 15, 2016 11:08 - CONCLUSION: Status post total knee arthroplasty. Ye Rodriguez MD Objective Remarks GENERAL: This is a 71 yo male, well-nourished, well-developed patient, in no apparent distress. SKIN: No rashes, ecchymoses or lesions. Cool and dry. HEAD: Atraumatic. Normocephalic. No temporal or scalp tenderness. EYES: Pupils equal round and reactive. Extraocular motions intact. No scleral icterus. No injection or drainage. ENT: Nose without bleeding, purulent drainage or septal hematoma. Throat without erythema, tonsillar hypertrophy or exudate. Uvula midline. Airway patent. NECK: Trachea midline. No JVD or lymphadenopathy. Supple, nontender, no meningeal signs. CARDIOVASCULAR: Regular rate and rhythm without murmurs, gallops, or rubs. RESPIRATORY: Clear to auscultation. Breath sounds equal bilaterally. No wheezes , rales, or rhonchi. GASTROINTESTINAL: Abdomen soft, non-tender, nondistended. No hepato-splenomegaly , or palpable masses. No guarding. MUSCULOSKELETAL: Left knee postsurgical incision looks clean, dry. There is some edema around the left knee joint and also some erythema that on closer look looks like broken capillaries, it is mildly warm and there is mild tenderness to palpation. The right lower extremity has no edema, joint pain. no calf tenderness bilaterally. NEUROLOGICAL: Awake and alert. Cranial nerves II through XII intact. Motor and sensory grossly within normal limits. Five out of 5 muscle strength in all muscle groups. Normal speech. Procedures Status post left total knee arthroplasty. A/P Problem List: (1) Primary localized osteoarthrosis, lower leg ICD Code: M17.10 Status: Acute (2) HTN (hypertension) ICD Code: I10 Status: Acute (3) Hyperlipidemia ICD Code: E78.5 Status: Acute (4) Peripheral neuropathy ICD Code: G62.9 Status: Chronic (5) Hyperglycemia ICD Code: R73.9 Status: Acute (6) Hypotension ICD Code: I95.9 Status: Acute (7) WILLIE (acute kidney injury) ICD Code: N17.9 Status: Acute (8) SIRS (systemic inflammatory response syndrome) ICD Code: R65.10 Status: Acute Assessment and Plan SIRS (systemic inflammatory response syndrome) Patient with persistent fevers and chills. MAXIMUM TEMPERATURE 101.1 and tachycardia. Urinalysis negative Doppler ultrasound of the postsurgical extremity is negative for DVT. Patient started on IV vancomycin by orthopedic surgery, I will add cefepime for a broader coverage. Chest x-ray which was reviewed by me shows some chronic interstitial tissue changes - CT chest without IV contrast to better asses this chronic interstitial changes, reviewed Doppler US negative for DVT Blood cultures negative to date Consult infectious disease Continue IV normal saline. Broaden coverage - DC Cefepime, Start Zosyn. Primary localized osteoarthrosis, lower leg Synthes is status post left knee arthroplasty. Continue pain control as per orthopedic surgery. Patient currently on [place] and IV morphine for pain control. HTN (hypertension) Continue to hold antihypertensive medications as blood pressure has been borderline low. 06/17 bp much improved 06/19 BP stable Hyperlipidemia Patient previously on a statin treatment, however this was discontinued due to some adverse effect to the medication. Peripheral neuropathy Continue gabapentin. The patient states that his neuropathy came on after he fell. Hyperglycemia Patient states that recently he was diagnosed with hyperglycemia 2 months ago. Check hemoglobin A1c ----> patient is prediabetic. Patient would benefit from starting oral metformin upon dc. Will consult dietitian and visual educator. Hypotension Hypotension likely secondary to anesthetic medications, acute blood loss, we' ll give 1 L of IV saline bolus and hold antihypertensive medications. Continue to monitor vital signs. 06/16 patient's hypotension resolved after IV fluid bolus administered yesterday. However this morning and again hypotensive. I will place the patient on normal saline and continue to monitor vital signs. 06/17 BP improved. Continue normal saline 06/19 Resolved - continue IV fluids WILLIE (acute kidney injury) Thank you secondary to hemodynamic instability and hypotension. Creatinine 1.1. Continue to monitor BUN/creatinine, will place on IV fluids, strict I's and O's. Constipation. Laxatives/stool softeners. Resolved. monitor. GI prophylaxis: Continue PPI Activity reflexes: SCDs, started on Lovenox as per orthopedic surgery. Discharge Planning Continue to monitor on the medical floor. The patient is not cleared to be discharged. Stable from hospitalist standpoint can be DC. ID also following. Problem Qualifiers (1) Primary localized osteoarthrosis, lower leg: Qualified Code: M17.11 - Primary localized osteoarthrosis, lower leg, right (2) HTN (hypertension): Qualified Code: I10 - Essential hypertension (3) Peripheral neuropathy: Qualified Code: G62.9 - Peripheral polyneuropathy Rosey Hamilton MD Jun 22, 2016 12:37
[2016-06-22] MEDS: VANCOMYCIN INJ 2,000 MG in SODIUM CHLORID 0.9% 500 ML INJ 500 ML IV SCH (13:32)
[2016-06-22] MEDS ORDERED: CLIN1CAP6 PO (15:10)
--- NOTE | 2016-06-22 15:16 | HHI.IDPN ---
Subjective Subjective Remarks Notes reviewed Temps better C/S negative Pain controlled Antibiotics Vancomycin Lines PIV Past Medical History Hypertension. Neuropathy after a fall. Hyperglycemia 2 months ago. 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 Skin biopsy Allergies: Coded Allergies: Lisinopril (Verified Allergy, Unknown, 06/12/16) Objective . Vital Signs Date Time Temp Pulse Resp B/P Pulse Ox O2 Delivery O2 Flow Rate FiO2 06/22/16 11:29 96.7 100 18 148/81 94 06/22/16 07:36 99.1 100 18 170/92 95 06/22/16 04:33 96.9 98 17 142/89 92 06/22/16 00:50 97.4 99 21 157/96 97 06/21/16 20:45 98.5 107 18 162/82 94 06/21/16 15:50 96.8 99 17 160/92 95 06/21/16 06/21/16 06/22/16 15:00 23:00 07:00 Intake Total 960 ml 480 ml Output Total 300 ml 500 ml Balance 960 ml 180 ml -500 ml Intake Oral 960 ml 480 ml Output Urine Total 300 ml 500 ml # Voids 3 # Bowel Movements 0 0 . Laboratory Tests Test 06/21/16 06:02 White Blood Count 5.4 TH/MM3 Red Blood Count 3.19 MIL/MM3 Hemoglobin 10.1 GM/DL Hematocrit 29.9 % Mean Corpuscular Volume 93.6 FL Mean Corpuscular Hemoglobin 31.6 PG Mean Corpuscular Hemoglobin 33.8 % Concent Red Cell Distribution Width 13.7 % Platelet Count 157 TH/MM3 Mean Platelet Volume 8.4 FL Neutrophils (%) (Auto) 72.4 % Lymphocytes (%) (Auto) 10.0 % Monocytes (%) (Auto) 14.9 % Eosinophils (%) (Auto) 1.6 % Basophils (%) (Auto) 1.1 % Neutrophils # (Auto) 3.9 TH/MM3 Lymphocytes # (Auto) 0.5 TH/MM3 Monocytes # (Auto) 0.8 TH/MM3 Eosinophils # (Auto) 0.1 TH/MM3 Basophils # (Auto) 0.1 TH/MM3 CBC Comment DIFF FINAL Differential Comment Laboratory Tests Test 06/21/16 06:02 Sodium Level 142 MEQ/L Potassium Level 4.0 MEQ/L Chloride Level 108 MEQ/L Carbon Dioxide Level 26.1 MEQ/L Anion Gap 8 MEQ/L Blood Urea Nitrogen 13 MG/DL Creatinine 0.94 MG/DL Estimat Glomerular Filtration 79 ML/MIN Rate Random Glucose 148 MG/DL Calcium Level 8.0 MG/DL Magnesium Level 2.4 MG/DL Imaging Chest CT 06/19/16 0000 Signed Impressions: Service Date/Time: Sunday, June 19, 2016 13:21 - CONCLUSION: 1. Mild scarring with no evidence of pneumonia. 2. 1 cm low attenuation lesion in the right lobe of the thyroid gland which is nonspecific but likely represents an adenoma. This could be further evaluated with outpatient ultrasound. 3. Mild coronary artery calcifications. Dinh Lobo MD Lower Extremity Ultrasound 06/18/16 0000 Signed Impressions: Service Date/Time: June 10:30 - CONCLUSION: Negative exam. No sonographic or Doppler findings of deep venous thrombosis. Rigo Rasmussen MD Chest X-Ray 06/18/16 0000 Signed Impressions: Service Date/Time: June 09:00 - CONCLUSION: 1. Chronic interstitial changes. No acute abnormality. Lyle Rodriguez MD Knee X-Ray 06/15/16 0718 Signed Impressions: Service Date/Time: Wednesday, June 15, 2016 11:08 - CONCLUSION: Status post total knee arthroplasty. Ye Rodriguez MD Physical Exam GENERAL: awake and alert, in no apparent distress. SKIN: Warm and dry. No generalized rash, has ecchymosis on his left knee. No embolic lesions noted. HEENT: [place] conjunctivae, no petechia or hemorrhage. No scleral icterus. Moist oral mucosa. NECK: Trachea midline. No JVD or lymphadenopathy. Supple, nontender, no meningeal signs. CARDIOVASCULAR: Regular rate and rhythm without murmurs, gallops, or rubs. RESPIRATORY: Clear to auscultation. Breath sounds equal bilaterally. No wheezes , rales, or rhonchi. GASTROINTESTINAL: Abdomen soft, non-tender, nondistended. Bowel sounds are present and normoactive. No hepato-splenomegaly, or palpable masses. No guarding. MUSCULOSKELETAL: RLE without clubbing, cyanosis, or edema. No joint tenderness , effusion, or edema noted.LLE - L knee incision is dry, no significant drainage. Has surrounding ecchymoses, and has significant swelling of his knee. No calf tenderness. Negative Homans sign bilaterally. NEUROLOGICAL: PSYCH: Normal affect, calm and cooperative LINE: PIV with no evidence of infection Assessment & Plan Remarks IMPRESSION Post-op fever, no obvious source of infection, ?due to L knee, seems to have hemarthrosis - he looks clinically good - temps better - C/S negative S/P L TKA Anemia post-op, ?due to hemarthrosis, ?retroperitoneal, but he denies any abdominal pain RECOMMENDATION Give 7 days po Clindamycin - Rx written OK to D/C home Fup with ortho Explained plan to patient D/W Munira Finch MD Jun 22, 2016 15:16
[2016-06-22 16:00] VITALS: BP 145/90; PULSE 109; RESP 18; TEMP 97.1; O2SAT 100
[2016-06-23] MEDS ORDERED: PHARMACY ORDERED LAB XX ONE (05:45)
--- NOTE | 2016-06-23 08:20 | MD ---
cc: DIGNA RICARDO ADMISSION DATE: 06/15/2016 DISCHARGE DATE: 06/22/2016 ADMISSION DIAGNOSIS Severe degenerative osteoarthritis, left knee. DISCHARGE DIAGNOSIS Severe degenerative osteoarthritis, left knee. HISTORY OF PRESENT ILLNESS Mr. Marie is a 71-year-old male who presented to the [facility] for evaluation by Dr. Digna Ricardo regarding his severe and progressive bilateral knee pain, left greater than right. He states the pain has been progressive for several years and currently is a constant severe aching sensation. He notes it is aggravated by any type of weightbearing activities. He states he has no alleviating factors at this point in time. He notes in the past he has tried medications, bracing, physical therapy, home exercise program and multiple cortisone injections without long-lasting relief of symptoms. He does have x-ray evidence of severe degenerative osteoarthritis of the left knee. While in the office the patient was counseled on his diagnosis and treatment options, risks, benefits, indications all were discussed in great detail. The patient did elect to proceed with surgical intervention to include a left total knee arthroplasty. DATE OF SURGERY 06/15/2016, left total knee arthroplasty. POSTOP After surgery the patient was admitted to [facility] where he received appropriate medical management, pain control, DVT prophylaxis as well as physical therapy. DISCHARGE Once being discharged from the hospital, he was cleared to go home where he will receive home health care and home physical therapy. He is in stable condition. The patient may weight-bear as tolerated. He is to receive daily dressing changes and has been instructed on appropriate wound care management. The patient has been provided prescriptions for pain control as well as DVT prophylaxis medication. He has also been provided with a follow-up appointment to see Dr. Digna Ricardo in the office in approximately 2 weeks from date of surgery. The patient has asked appropriate questions which have all been answered. The patient is cleared for discharge. Dictated by: BRYAN Dorado MD ENEDELIA Leonard/DARIN /8:11 AM /8:18 AM
--- NOTE | 2016-06-29 08:23 | MD ---
cc: DIGNA RICARDO ADMISSION DATE: 06/15/2016 DISCHARGE DATE: 06/22/2016 ADMISSION DIAGNOSIS Severe degenerative osteoarthritis, left knee. DISCHARGE DIAGNOSIS Severe degenerative osteoarthritis, left knee. HISTORY OF PRESENT ILLNESS Mr. Marie is a 71-year-old male who presented to the [facility] [place] regarding his severe and progressive bilateral knee pain, left greater than right. He states the pain has been bothering him for many years and he notes he is becoming more bow-legged. He states the left knee pain is a constant severe aching sensation that is aggravated by any type of weightbearing activities. He states that it has been bothering him for many years and he has been treated for this ailment for greater than 6 months duration. He has no alleviating factors at this point in time, although in the past he has tried medications, bracing, physical therapy, home exercise program and multiple injections without long-lasting relief of his symptoms. He does have x-ray evidence of severe degenerative osteoarthritis of the left knee. While in the office the patient was counseled on his diagnosis and treatment options, risks, benefits, indications were all discussed in great detail. The patient did elect to proceed with surgical intervention to include a left total knee arthroplasty. DATE OF SURGERY: 06/15/2016, left total knee arthroplasty. POSTOP After surgery the patient was admitted to [facility] where he received appropriate medical management, pain control, DVT prophylaxis as well as physical therapy. The patient did experience postoperative fever of unknown origin. He had multiple tests run including but not limited to Doppler ultrasounds, chest x-ray and urinalysis, CT of his abdomen and blood cultures, all of which were negative. DISCHARGE After being discharged from the hospital the patient has been cleared to go home where he will receive home health care and home physical therapy. He was in stable condition. The patient may weight-bear as tolerated. He is to receive daily dressing changes and has been instructed on appropriate wound care management. He has been provided prescriptions for pain control as well as DVT prophylaxis medication. He has also been provided a follow-up appointment to see Dr. Digna Ricardo in the office in approximately 2 weeks from his date of surgery. The patient has asked appropriate questions, which have been answered. The patient has been discharged. Dictated by: BRYAN Dorado MD ENEDELIA Leonard/DARIN /1:01 PM /8:24 AM
[2016-08-11] MEDS ORDERED: DIAZ5TAB PO (09:49)
== END 2016-06-22 18:21 | disposition home health service (06) | DRG 470 ==
LOC: HSDI 06-15 05:39 → N06B 06-15 13:01
PROVIDERS: ADMIT Orthopaedic Surgery Sports Medicine; ATTEND Orthopaedic Surgery Sports Medicine
PROC: 0QRF0JZ Replacement of Left Patella with Synthetic Substitute, Open Approach (ICD-10-PCS; 2016-06-15)
PROC: 3E0T3CZ (ICD-10-PCS; 2016-06-15)
PROC: 0SRD0J9 Replacement of Left Knee Joint with Synthetic Substitute, Cemented, Open Approach (ICD-10-PCS; principal; 2016-06-15 08:25)
DX: M17.12 Unilateral primary osteoarthritis, left knee (principal); N17.9 Acute kidney failure, unspecified; G62.9 Polyneuropathy, unspecified; R65.10 Systemic inflammatory response syndrome (SIRS) of non-infectious origin without acute organ dysfunction; D64.9 Anemia, unspecified; R50.82 Postprocedural fever; I10 Essential (primary) hypertension; M25.762 Osteophyte, left knee; M21.162 Varus deformity, not elsewhere classified, left knee; E78.5 Hyperlipidemia, unspecified; I95.2 Hypotension due to drugs; T41.45XA Adverse effect of unspecified anesthetic, initial encounter; K59.00 Constipation, unspecified; L80 Vitiligo; R73.03 Prediabetes; Z87.891 Personal history of nicotine dependence
CPT/HCPCS: 71010; 71250; 73560; 76937; 80048; 80053; 80202; 81001; 83036; 83735; 84100; 84145; 85025; 85027; 85652; 86140; 86850; 86900; 86901; 87040; 93971; 94150; C1776; C9290; J0131; J0171; J0690; J0692; J0735; J1100; J1580; J1650; J1885; J2250; J2405; J2543; J2795; J3010; J3370; J3480; J7040; J7050; J7120; L1830

== ENCOUNTER 2016-07-21 09:17 | Day surgery (SDC) | payer OTHER ==
[~2016-07-21] VITALS: Ht 188 cm; Wt 88.6 kg
[~2016-07-21 09:17] MED LIST: AMLO5TAB2 PO; APIX2.5T PO; CHLO25TA2 PO; CLIN1CAP6 PO; COMMODE 3-IN-11 MIS; CPMMACHINE; GABA300C5 PO; HYDR-3288 PO; LOSA50TA PO; VITA2000 PO; WALKER WHEELS/F1 MIS; [UNRECOGNIZED DRUG - OTHER] PO
[2016-07-21 09:48] VITALS: BP 136/84; PULSE 86; RESP 20; TEMP 97.9; O2SAT 97
[2016-07-21 10:35] LABS: AUTOMATED NEUTROPHIL # 3.1 TH/MM3 (1.8-7.7); BASOPHIL % 0.9 % (0.0-2.0); EOSINOPHIL # 0.1 TH/MM3 (0-0.4); EOSINOPHIL % 1.8 % (0.0-4.0); HEMATOCRIT 37.6 % (39.0-51.0); HEMO FLAGS DIFF FINAL; LYMPH % 14.3 % (9.0-44.0); LYMPHOCYTE # 0.6 TH/MM3 (1.0-4.8); MEAN CELL VOLUME 91.4 FL (80.0-100.0); MEAN CORPUSCULAR HEMOGLOBIN 30.1 PG (27.0-34.0); MEAN CORPUSCULAR HGB CONC 32.9 % (32.0-36.0); MONO % 12.8 % (0.0-8.0); NEUT % 70.2 % (16.0-70.0); PLATELET COUNT 170 TH/MM3 (150-450); RED BLOOD COUNT 4.11 MIL/MM3 (4.50-5.90); RED CELL DISTRIBUTION WIDTH 14.8 % (11.6-17.2); WHITE BLOOD COUNT 4.4 TH/MM3 (4.0-11.0)
[2016-07-21] MEDS ORDERED: SODIUM CHLOR 0.9% 1000 ML IV SCH (11:00)
[2016-07-21] MEDS ORDERED: LIDOCAINE 1%/EPINEPHrine 1:100,000 SOLN 20 ML VIAL ONE (11:28)
[2016-07-21] MEDS ORDERED: MIDAZOLAM HCL 5 MG/5 ML VIAL ONE (11:40)
[2016-07-21] MEDS ORDERED: fentaNYL CITRATE 250 MCG/5 ML AMP ONE (11:41)
--- NOTE | 2016-07-21 12:41 | PD.RAD ---
Post CT Procedure Prog Note Pre Procedure Diagnosis: (1) Non-Hodgkin lymphoma Post Procedure Diagnosis: (1) Non-Hodgkin lymphoma Procedure Date: Jul 21, 2016 Supervising Radiologist: Rigo Rasmussen Proceduralist/Assist: RT Aimee(R)(CT) Anesthesia: Local, Analgesia, Conscious Sedation Plan of Activity Patient to Unit: ROPU Patient Condition: Good See PACS Report for procedural detail/treatment Biopsy Imaging Guidance: CT Biopsy Procedure: Bone Marrow Specimen: Core Biopsy, Fine Needle Aspirate Fluid Description: Rigo Nicholson MD Jul 21, 2016 12:40
[2016-07-21 13:00] VITALS: BP 134/91; PULSE 90; RESP 16; TEMP 98.1; O2SAT 94
[2016-07-21 13:15] VITALS: BP 136/78; PULSE 96; RESP 18; O2SAT 93
[2016-07-21 13:28] LABS: BONE MARROW PROCESSING COMPLETE; IRON STAIN DONE; JENNER GIEMSA STAIN DONE
[2016-07-21 13:45] VITALS: BP 147/97; PULSE 106; RESP 18; O2SAT 92
[2016-07-21 14:15] VITALS: BP 123/78; PULSE 102; RESP 18; O2SAT 94
--- NOTE | 2016-07-21 15:51 | RADRPT ---
EXAM DATE/TIME: 07/21/2016 12:05 [facility] COMPARISON: No previous studies available for comparison. INDICATIONS : Evalutate for lymphoma. SEDATION TIME: 30 minutes BIOPSY SITE: Right ilium MEDICATION(S): 1.) 4 mg midazolam (Versed) IV 2.) 200 mcg fentanyl (Sublimaze) IV DEVICE(S): 1.) 11 gauge Bone marrow biopsy needle MEDICAL HISTORY : Hypertension. SURGICAL HISTORY : Orthopedic ENCOUNTER: Initial ACUITY: 1 day PAIN SCORE: 0/10 LOCATION: Right ilium A total of one core specimen(s) were obtained and sent to the laboratory for pathologic evaluation. PROCEDURE: 1. CT guided bone marrowRt ilium biopsy. 2. Conscious sedation with continuous EKG and oximetry monitoring. Prior to the procedure informed consent was obtained. Any appropriate prior imaging studies were rev iewed. Using automated exposure control and adjustment of the mA and/or kV according to patient size , radiation dose was kept as low as reasonably achievable to obtain optimal diagnostic quality images . The site was prepped in a sterile fashion. Full sterile technique was used, including cap, mask, harry rile gloves and gown and a large sterile sheet. Hand hygiene and 2% chlorhexidine and/or betadine/al cohol prep was utilized per protocol for cutaneous antisepsis. The skin and subcutaneous tissues wer e infiltrated with local anesthetic solution. With CT guidance the previously identified target was localized. Biopsy was performed using the presc ribed needle as above. Following biopsy marrow aspiration was performed with repeat puncture. Adequa te hemostasis was obtained with compression at the puncture site. Follow-up CT scan reveals no hemorrhage. Conscious sedation was performed with the prescribed dosages and duration as above in the presence of an independent trained radiology nurse to assist in the monitoring of the patient. EKG and oximetry remained stable throughout the procedure. The patient tolerated the procedure well and there were no complications. The patient was sent to Radiology Outpatient Unit in stable condition. CONCLUSION: 1. Uncomplicated CT guided bone marrow aspirate. 2. Uncomplicated CT guided bone marrow biopsy. Rigo Rasmussen MD on July 21, 2016 at 15:48 Board Certified Radiologist. This report was verified electronically.
[2016-08-11] MEDS ORDERED: DIAZ5TAB PO (09:49)
== END 2016-07-21 15:00 | disposition home or self-care (01) ==
LOC: HRAD 09:17 → HRIP 09:18 → HRAD 15:00
PROVIDERS: ATTEND Internal Medicine
DX: C85.90 Non-Hodgkin lymphoma, unspecified, unspecified site (principal); D64.9 Anemia, unspecified; I10 Essential (primary) hypertension
CPT/HCPCS: 38221; 77012; 85025; 85097; 88184; 88185; 88237; 88264; 88280; 88305; 88311; 88313; 99152; C1830; G0364; J2250; J3010; J7030

== ENCOUNTER → 2016-08-12 | Day surgery (SDC) | payer OTHER ==
[~2016-08-12] MED LIST changes: -APIX2.5T PO; +BUPIVACAINE/EPINEPHRINE 0.25% 50 ML VIAL ONE; +BUPIVACAINE/EPINEPHRINE 0.5% PF 30 ML VIAL ONE; -CLIN1CAP6 PO; -COMMODE 3-IN-11 MIS; -CPMMACHINE; +DIAZ5TAB PO; -GABA300C5 PO; +LACTATED RINGER'S 1000 ML INJ 1,000 ML ONE; +LIDOCAINE 1%/EPINEPHrine 1:100,000 SOLN 20 ML VIAL ONE; +MIDAZOLAM HCL 2 MG/2 ML VIAL ONE; +NEOMYCIN/POLYMYXIN/BACITRACIN OINT 15 GM TUBE ONE; +ONDANSETRON HCL 4 MG/2 ML VIAL IV PUSH ONE; +PROPOFOL 200 MG/20 ML AMP IV ONE; -WALKER WHEELS/F1 MIS; -[UNRECOGNIZED DRUG - OTHER] PO; +ceFAZolin 2 GM PREMIX 50 ML ONE
--- NOTE | 2016-08-12 19:20 | TN ---
cc: CHRISTOFER GAMEZ,SASCHA LEHMAN,DARWIN Beltran M.D. DATE OF SURGERY: 08/12/2016 POSTOPERATIVE DIAGNOSIS Skin lesion right lower extremity Scrotal skin lesion. Scrotal mass x3. POSTOPERATIVE DIAGNOSIS: Skin lesion right lower extremity 3 cm Three subcutaneous scrotal masses with one more deeper scrotal mass measuring 1 cm. PROCEDURE 1. Excision of skin lesion 3 cm utilizing a 6 x 3.5 cm elliptical incision double layer closure. 2. Excision of three scrotal masses in the skin, and one in the subcutaneous tissues, measuring 1 cm. ANESTHESIA: General. SURGEON: Dr. Lehman. INDICATIONS: The patient is a pleasant 71 year-old gentleman who had questionable T-cell lymphoma. Dr. Gamez has asked me to excise the skin lesion in the right lower extremity and scrotal masses to assist in management. DESCRIPTION OF PROCEDURE: The patient was taken to the operating room, placed in supine position. After anesthesia time out was done. He was given preoperative antibiotics. We previously marked the two areas. We turned our attention to the right lower extremity just medial below the knee cap. An irregular skin lesion was noted. Elliptical incision measuring 3.5 x 6 cm is made and the lesion is completely excised, marked with a stitch at the 12 o'clock position for orientation. The deep layer is reapproximated with 3-0 Vicryl and the skin is closed with interrupted 3-0 nylon. Sterile bandage is applied. We then direct our attention to the scrotal lesion. It was just off to the left of the midline in the [place]. We make an elliptical incision to accommodate two of the more superficial skin lesions and a third one is slightly inferior and deeper, not involved in the subcutaneous tissues. This one measures approximately 1.5 cm. It is teased away from the surrounding tissues. It is very firm. This was done with a combination of blunt dissection, sharp dissection, electrocautery device. A fourth lesion in the deeper subcutaneous tissue is excised and measures approximately a centimeter as well. These were all sent down to pathology as scrotal masses. We then irrigate, hemostasis is assured. Again these are not associated with the testicles or blood supply. The deep layer is then reapproximated with 2-0 Vicryl and the skin is reapproximated with 4-0 subcuticular Vicryl suture. Sterile bandage is applied. The patient tolerated the procedure well. No immediate postop complications. MD JACOB Renteria/LINDA /4:10 PM /7:00 PM
== END | disposition home or self-care (01) ==
LOC: ESDC 13:27
PROVIDERS: ATTEND Surgery
DX: N50.9 Disorder of male genital organs, unspecified (principal); L98.9 Disorder of the skin and subcutaneous tissue, unspecified
CPT/HCPCS: 00920; 11406; 11421; 11422; 11423; 12032; 88305; 88341; 88342; J0690; J2250; J2405; J3010; J7120

== ENCOUNTER → 2017-03-19 | Outpatient (CLI) | payer OTHER ==
[~2017-03-19] MED LIST changes: +ASPI81CH6 CHEW; -BUPIVACAINE/EPINEPHRINE 0.25% 50 ML VIAL ONE; -BUPIVACAINE/EPINEPHRINE 0.5% PF 30 ML VIAL ONE; +ENOX40P SQ; +FLUT1SPR5 EACH NARE; -LACTATED RINGER'S 1000 ML INJ 1,000 ML ONE; +LEVOTAB PO; -LIDOCAINE 1%/EPINEPHrine 1:100,000 SOLN 20 ML VIAL ONE; +MAXI0.1O EACH EYE; -MIDAZOLAM HCL 2 MG/2 ML VIAL ONE; -NEOMYCIN/POLYMYXIN/BACITRACIN OINT 15 GM TUBE ONE; -ONDANSETRON HCL 4 MG/2 ML VIAL IV PUSH ONE; -PROPOFOL 200 MG/20 ML AMP IV ONE; +VITA10004 PO; -ceFAZolin 2 GM PREMIX 50 ML ONE
== END ==
LOC: CPRE 09:51
PROVIDERS: ATTEND Orthopaedic Surgery Sports Medicine
DX: M17.11 Unilateral primary osteoarthritis, right knee (principal)

== ENCOUNTER 2017-04-05 07:10 | Inpatient (IN) | payer OTHER, MEDICARE ==
[~2017-04-05] VITALS: Ht 188 cm; Wt 91.6 kg
[~2017-04-05 07:10] MED LIST changes: -ASPI81CH6 CHEW; -ENOX40P SQ; -FLUT1SPR5 EACH NARE; -HYDR-3288 PO; -LEVOTAB PO; -MAXI0.1O EACH EYE
[2017-04-05] MEDS ORDERED: ROPIVACAINE PERI-ARTICULAR INJECTION. P-ARTICULR SCH ×5 (08:15)
[2017-04-05] MEDS ORDERED: TRANEXAMIC PERI-ARTICULAR 3,000 MG/NS 100 ML P-ARTICULR SCH ×2 (08:15)
[2017-04-05] MEDS ORDERED: METOPROLOL TARTRATE 25 MG TAB PO PRN (08:15)
[2017-04-05] MEDS ORDERED: POVIDONE IODINE 5% (ANTISEPSIS KIT) 4 APPLICATIONS EACH NARE PRN (08:15)
[2017-04-05] MEDS ORDERED: DEXAMETHASONE SOD PHOS 20 MG/5 ML VIAL IV SCH (08:15)
[2017-04-05] MEDS ORDERED: VANCOMYCIN 1000 MG/NS 250 ML (for <70 kg) IV SCH ×2 (08:15)
[2017-04-05] MEDS ORDERED: SODIUM CHLORID 0.9% 500 ML IV PRN (08:15)
[2017-04-05] MEDS ORDERED: CHLORHEXIDINE GLUCONATE 2 % 1 PACK (2 CLOTHS) TOPICAL PRN (08:15)
[2017-04-05] MEDS ORDERED: CHLORHEXIDINE GLUCONATE 4% SOLN 120 ML BTL TOPICAL SCH (08:15)
[2017-04-05] MEDS ORDERED: LACTATED RINGER'S 1000 ML IV PRN (08:15)
[2017-04-05] MEDS ORDERED: POVIDONE IODINE 7.5% SCRUB 118 ML BOTTLE TOPICAL SCH (08:15)
[2017-04-05] MEDS ORDERED: INSULIN HUMAN REGULAR 1,000 UNITS/10 ML VIAL SQ PRN (08:15)
[2017-04-05] MEDS ORDERED: SODIUM CHLORIDE 0.9% IV SCH (09:00)
[2017-04-05] MEDS ORDERED: TRANEXAMIC ACID IV SCH (09:00)
[2017-04-05] MEDS ORDERED: ASPI81CH6 CHEW (09:26)
[2017-04-05] MEDS ORDERED: ENOX40P SQ (09:26)
[2017-04-05] MEDS ORDERED: HYDR-3288 PO (09:27)
[2017-04-05] MEDS ORDERED: DIAZEPAM 5 MG TAB PO PRN (09:30)
[2017-04-05] MEDS ORDERED: ONDANSETRON HCL 4 MG/2 ML VIAL IVP PRN (09:30)
[2017-04-05] MEDS ORDERED: ACETAMINOPHEN/HYDROcodone 325 MG/7.5 MG TAB PO PRN (09:30)
[2017-04-05] MEDS ORDERED: diphenhydrAMINE HCL 50 MG/ML VIAL IV PUSH PRN (09:30)
[2017-04-05] MEDS ORDERED: BISACODYL 10 MG SUPP RECTAL PRN (09:30)
[2017-04-05] MEDS ORDERED: ZOLPIDEM TARTRATE 5 MG TAB PO PRN (09:30)
[2017-04-05] MEDS ORDERED: MORPHINE SULFATE 4 MG/ML INJ IV PUSH PRN (09:30)
[2017-04-05] MEDS: ceFAZolin 2 GM PREMIX 50 ML IV SCH (09:40)
[2017-04-05] MEDS ORDERED: GENTAMICIN SULFATE 80 MG/2 ML VIAL ONE (09:42)
[2017-04-05] MEDS ORDERED: ACETAMINOPHEN 1000 MG/100 ML 100 ML IV ONE (09:47)
[2017-04-05] MEDS ORDERED: BUPIVACAINE LIPOSOME PF 1.3% 20 ML VIAL ONE (10:19)
[2017-04-05] MEDS ORDERED: Post-op Orders (for Pharmacy) MISC XX ONE (12:30)
--- NOTE | 2017-04-05 12:39 | MP ---
cc: DIGNA VALDERRAMA DATE OF SURGERY 04/05/2017 PREOPERATIVE DIAGNOSIS Right knee osteoarthritis. POSTOPERATIVE DIAGNOSIS Right knee osteoarthritis. PROCEDURE Right total knee arthroplasty. SURGEON Dr. Digna Valderrama AUDIO DIRECTOR John Pierce PA-C ANESTHESIA General with an adductor canal femoral nerve block. ESTIMATED BLOOD LOSS 50 cc. TOURNIQUET TIME 36 minutes at 250 mmHg. COMPLICATIONS None. IMPLANTS USED DePuy Attune size 8 posterior stabilized femoral component, size 10 tibial plate baseplate, size 10-mm polyethylene tibial insert, 41 patella. JUSTIFICATION The patient is a 72-year-old male with history of severe end-stage osteoarthritis involving the right knee. He has severe, disabling pain with standing, walking, ambulation, weightbearing activities and severe pain at rest. He has failed greater than three months of nonoperative conservative treatment modalities to include medication therapy, injections, ambulatory assistive aids, home exercise program, and activity modification. X-rays of the right knee reveal severe end-stage osteoarthritis with [id number] joint space narrowing, subchondral sclerosis, subchondral cysts, osteophyte formation with subluxation. The patient was counseled as to the risks, benefits and alternatives to a total knee arthroplasty. The risks were discussed to include but are not limited to anesthesia, bleeding, infection, damage to nerves, blood vessels, pain, stiffness, failure of the components, blood clots, pulmonary embolism and even . The patient's pain is severe. The patient favored the benefits over the risks and did wish to proceed with surgery. PROCEDURE IN DETAIL Written consent was obtained. The patient was identified by name and taken to the operating room. General anesthesia was administered as well as 2 grams of IV Ancef and 1 gram of IV vancomycin. A well-padded tourniquet was placed on the right thigh, the right lower extremity prepped and draped using isopropyl alcohol, Hibiclens solution and ChloraPrep solution. After a time-out was performed, an Esmarch bandage was used to exsanguinate the right lower extremity and the tourniquet inflated to 250 mmHg. A longitudinal incision was made over the anterior aspect of the right knee and medial parapatellar arthrotomy incision was performed. The patella was everted. Patellar resection guide was used to resect 9.5 mm of patella. A size 41-mm guide was placed and three drill holes were placed and the 41-mm trial fit well. Attention was turned to the femur where an intramedullary guide harsh was set and distal femoral guide was set to remove 11 mm of distal femur 5 degrees off the anatomic valgus axis alignment. An oscillating saw was used to perform the distal femoral cut. Attention was turned to the tibia where an extramedullary tibial guide was set to remove 6 mm off the lowest portion of the medial tibial plateau. The tibial guide was pinned in place and the tibial cut was performed. The 5-mm spacer block showed full extension. Attention was turned back to the femur where the AP sizing block measured a size 8. The anterior reference 3-degree external rotational guide was used to pin a size [address] The anterior, posterior and chamfer cuts were performed. A size 8 PCL box guide was pinned in place and PCL was boxed out with an oscillating saw. The medial and lateral meniscus remnants were removed as well as bone and soft tissue debris from the posterior portion of the knee. The size 10 tibial baseplate was pinned in place, the tibia was drilled and punched. Trial components were evaluated and final components cemented in place. With the current components the leg could achieve full extension from 0 degrees and flexion of 140, no evidence of tibial lift-off. Varus-valgus balance appeared appropriate and the patella was noted to track centrally. The tourniquet was deflated and Bovie cautery was used for hemostasis. The surgical wound was thoroughly irrigated with sterile saline solution pulse lavage antibiotic impregnated solution. The arthrotomy incision was closed with #1 Vicryl suture, the subcutaneous layer closed with 2-0 Vicryl suture and the skin was closed with Dermabond. Sterile dressings were applied. The patient tolerated the procedure well. There was no intraoperative complication noted. John Pierce, physician safety admin assistant certified, was present during the entire procedure to include patient positioning and the procedure itself. The medical necessity of a physician safety admin assistant was indicated in this case due to the complexity of the procedure. He assisted with appropriate manipulation of the leg and also retraction of muscle, tendon, bone and neurovascular structures. He assisted with preparation of bone and also implantation of the prosthetic replacements. MD ENEDELIA Leonard/PREMA /11:55 AM 12:22 PM
[2017-04-05] MEDS: SODIUM CHLOR 0.9% 1000 ML INJ 1,000 ML IV SCH ×2 (13:00→19:23)
--- NOTE | 2017-04-05 13:10 | RADRPT ---
EXAM DATE/TIME: 04/05/2017 12:47 [facility] COMPARISON: No previous studies available for comparison. INDICATIONS : Post op right knee MEDICAL HISTORY : None. SURGICAL HISTORY : right knee replaced ENCOUNTER: Initial ACUITY: 1 day PAIN SCORE: Non-responsive. LOCATION: Right knee FINDINGS: AP and lateral views of the right knee demonstrate changes consistent with recent total knee arthropl asty with metallic hardware in place in the distal femur and proximal tibia. There is a radiolucent p atellar component. There is soft tissue gas present, as expected. There is a joint effusion with air fluid level. CONCLUSION: Expected changes following total knee arthroplasty, as above. Mode Mariano MD on April 05, 2017 at 13:07 Board Certified Radiologist. This report was verified electronically.
[2017-04-05] MEDS ORDERED: *morphine SULFATE 8 MG/ML PERIprocedure ONLY ONE (13:14)
[2017-04-05 13:48] VITALS: BP 118/69; PULSE 58; RESP 18; TEMP 96.3; O2SAT 97
--- NOTE | 2017-04-05 14:35 | PD.CONS ---
[facility] By Dr. Ricardo Reason for Consult Medical management Primary Care Physician HERON Bower Diagnoses: History of Present Illness This is a 72-year-old male past medical history hypertension and osteoarthritis of multiple joints who presented with elective surgery with right total knee arthroplasty. [facility] consulted for medical management. Patient complaining of right knee pain at the surgical site. Patient has not received pain medication yet. Otherwise he has no other concerns. He stated that he is doing well. In regards to his heavy drinking he stated that he does drink 1 bottle of red wine a day. Denied any withdrawal symptoms when he does not drink such as tremors, abdominal pain, nausea/vomiting, or DTs. All other review of system reviewed and negative. Past Family Social History Allergies: Coded Allergies: lisinopril (Verified Allergy, Unknown, 04/05/17) Past Medical History Hypertension Anxiety Past Surgical History Left total knee arthroplasty in 2016, right knee surgery in 1999 Reported Medications [place] (Hydrocodone-Acetaminophen) 7.5-325 mg Tab 1-2 Tab PO Q6H PRN Aspirin Low Dose (Aspirin) 81 Mg Chew 81 Mg CHEW BID 30 Days Lovenox Inj (Enoxaparin Sodium) 40 Mg/0.4 Ml Syr 40 Mg SQ DAILY Amlodipine (Amlodipine Besylate) 5 Mg Tab 5 Mg PO DAILY Vitamin B12 Tr (Cyanocobalamin) 1,000 Mcg Tab 2,000 Mcg PO DAILY Diazepam 5 Mg Tab 5 Mg PO HS PRN Vitamin D3 (Cholecalciferol) 2,000 Unit Cap 4,000 Units PO QOD Chlorthalidone 25 Mg Tab 25 Mg PO DAILY Losartan (Losartan Potassium) 50 Mg Tab 50 Mg PO DAILY Active Ordered Medications Current Medications Lactated Ringer's 1,000 ml @ 30 mls/hr Q24H PRN IV SEE LABEL COMMENTS Last administered on 04/05/17t 08:15; Start 04/05/17 at 08:15; Stop 04/08/17 at 08:14 Sodium Chloride 500 ml @ 30 mls/hr [id number] PRN IV SEE LABEL COMMENTS; Start at 08:15; Stop 04/08/17 at 08:14 Metoprolol Tartrate (Lopressor) 25 mg ROCKET ASSEMBLY OPERATOR PRN PO SEE LABEL COMMENTS; Start 04/05/17 at 08:15; Stop 04/08/17 at 08:14 Povidone Iodine (Betadine 5% Antisepsis Kit) 1 applic ROCKET ASSEMBLY OPERATOR PRN EACH NARE SEE LABEL COMMENTS Last administered on 04/05/17 08:20; Start 04/05/17 at 08:15 ; Stop 04/08/17 at 08:14 Chlorhexidine Gluconate (Chlorhexidine 2% Cloth) 3 pack ROCKET ASSEMBLY OPERATOR PRN TOPICAL SEE LABEL COMMENTS Last administered on 04/05/17 07:30; Start 04/05/17 at 08:15 ; Stop 04/08/17 at 08:14 Insulin Human Regular (NovoLIN R INJ) See Protocol Table ... ROCKET ASSEMBLY OPERATOR PRN SQ SEE PROTOCOL TABLE; Start 04/05/17 at 08:15; Stop 04/08/17 at 08:14 Povidone Iodine (Betadine 7.5% Scrub) 1 applic ONCE TOPICAL Last administered on 04/05/17 08:00; Start 04/05/17 at 08:15; Stop 04/05/17 at 12:53; Status DC Chlorhexidine Gluconate (Hibiclens 4% Top Soln) 1 applic ONCE TOPICAL ; Start 04/05/17 at 08:15; Stop 04/05/17 at 12:53; Status DC Cefazolin Sodium/ Dextrose 50 ml @ 100 mls/hr ROCKET ASSEMBLY OPERATOR IV Last administered on 04/05/17 09:40; Start 04/05/17 at 08:15; Stop 04/05/17 at 12:53; Status DC Vancomycin HCl 1000 mg/Sodium Chloride 250 ml @ 250 mls/hr ROCKET ASSEMBLY OPERATOR IV Last administered on 04/05/17 09:43; Start 04/05/17 at 08:15; Stop 04/05/17 at 12:53 ; Status DC Ropivacaine 24.63 ml/Ketorolac Tromethamine 30 mg/Epinephrine HCl 0.5 mg/ Clonidine 80 mcg/ Sodium Chloride 100 ml @ 200 mls/hr ONCE P-ARTICULR Last administered on 04/05/17 10:59; Start 04/05/17 at 08:15; Stop 04/06/17 at 08:14 Dexamethasone Sodium Phosphate (Decadron Inj) 10 mg ROCKET ASSEMBLY OPERATOR IV Last administered on 04/05/17 08:25; Start 04/05/17 at 08:15 Tranexamic Acid 3000 mg/Sodium Chloride 130 ml @ 260 mls/hr ONCE P-ARTICULR Last administered on 04/05/17 10:59; Start 04/05/17 at 08:15; Stop 04/06/17 at 08:14 Tranexamic Acid 1374 mg/Sodium Chloride 113.74 ml @ 200 mls/ hr ONCE IV Last administered on 04/05/17 10:28; Start 04/05/17 at 09:00; Stop 04/05/17 at 15:00 Amlodipine Besylate (Norvasc) 5 mg DAILY PO ; Start 04/06/17 at 09:00 Cyanocobalamin (Vitamin B12) 2,000 mcg DAILY PO ; Start 04/06/17 at 09:00 Diazepam (Valium) 5 mg HS PRN PO SPASM; Start 04/05/17 at 09:30 Losartan Potassium (Cozaar) 50 mg DAILY PO ; Start 04/06/17 at 09:00 Patient Own Medication PT OWN MED: (Chlorthalidone 25 MG) DAILY PO ; Start 04/06 at 09:00; Status Future Hold Sodium Chloride 1,000 ml @ 100 mls/hr Q10H IV Last administered on 04/05/17 13:00; Start 04/05/17 at 09:23 Cefazolin Sodium 1000 mg/Sodium Chloride 100 ml @ 200 mls/hr Q6H IV Last administered on 04/05/17 14:07; Start 04/05/17 at 15:00; Stop 04/06/17 at 03:29 Miscellaneous Information (Post-op Orders (for Pharmacy)) STAT ONCE XX ; Start 04/05/17 at 12:30; Stop 04/05/17 at 12:50; Status DC Enoxaparin Sodium (Lovenox Inj) 40 mg Q24H SQ ; Start 04/06/17 at 11:00 Morphine Sulfate (Morphine Inj) 3 mg Q3H PRN IV PUSH Pain >7 when off HELP DESK REP; Start 04/05/17 at 09:30 Acetaminophen/ Hydrocodone Bitart ([place] 7.5-325 Mg) 1 tab Q4H PRN PO PAIN LESS THAN 5 ON SCALE; Start 04/05/17 at 09:30 Acetaminophen/ Hydrocodone Bitart ([place] 7.5-325 Mg) 2 tab Q4H PRN PO PAIN SCALE 5 TO 10; Start 04/05/17 at 09:30 Multivitamins/ Minerals Therapeutic (Theragran M Tab) 1 tab BID PO ; Start 04/06 at 21:00; Stop 06/05/17 at 20:59 Ondansetron HCl (Zofran Inj) 4 mg Q6H PRN IVP NAUSEA OR VOMITING; Start at 09:30 Docusate Sodium (Colace) 100 mg BID PO ; Start 04/06/17 at 21:00 Zolpidem Tartrate (Ambien) 5 mg HS PRN PO SLEEP; Start 04/05/17 at 09:30 Bisacodyl (Dulcolax Supp) 10 mg DAILY PRN RECTAL CONSTIPATION; Start 04/05/17 at 09:30 Diphenhydramine HCl (Benadryl Inj) 25 mg Q6H PRN IV PUSH ITCHING; Start at 09:30 Gentamicin Sulfate (Gentamicin Inj) 240 mg STK-MED ONCE .ROUTE Last administered on 04/05/17t 10:59; Start 04/05/17 at 09:42; Stop 04/05/17 at 09:43 ; Status DC Acetaminophen 100 ml @ As Directed STK-MED ONCE IV ; Start 04/05/17 at 09:47; Stop 04/05/17 at 09:48; Status DC Bupivacaine Liposome (Exparel Pf 1.3% Inj) 20 ml STK-MED ONCE .ROUTE ; Start at 10:19; Stop 04/05/17 at 10:20; Status DC Morphine Sulfate (*morphine INJ PERIprocedure ONLY) 8 mg STK-MED ONCE .ROUTE ; Start 04/05/17 at 13:14; Stop 04/05/17 at 13:15; Status DC Family History Father had history of heart failure. Maternal aunt has history of breast cancer. Paternal uncle had leukemia. Social History Patient is not a current smoker. Smoked tobacco for 25 years. Drinks one bottle of red wine a day. Physical Exam Vital Signs Vital Signs Date Time Temp Pulse Resp B/P (MAP) Pulse Ox O2 Delivery O2 Flow Rate FiO2 04/05/17 13:43 Nasal Cannula 2.00 04/05/17 13:32 98.1 56 20 121/64 (83) 97 Nasal Cannula 2 04/05/17 13:15 56 20 121/64 (83) 97 Nasal Cannula 2 04/05/17 13:00 56 20 118/62 (80) 95 Nasal Cannula 2 04/05/17 12:45 67 20 126/68 (87) 94 Nasal Cannula 2 04/05/17 12:30 72 20 125/64 (84) 91 Nasal Cannula 2 04/05/17 12:21 98.1 84 20 129/65 (86) 95 Nasal Cannula 2 04/05/17 08:26 98.8 76 18 121/79 (93) 96 Physical Exam GENERAL: This is a well-nourished, well-developed patient, in no apparent distress. SKIN: No rashes, ecchymoses or lesions. Cool and dry. HEAD: Atraumatic. Normocephalic. No temporal or scalp tenderness. EYES: Pupils equal round and reactive. Extraocular motions intact. No scleral icterus. No injection or drainage. ENT: Nose without bleeding, purulent drainage or septal hematoma. Throat without erythema, tonsillar hypertrophy or exudate. Uvula midline. Airway patent. NECK: Trachea midline. No JVD or lymphadenopathy. Supple, nontender, no meningeal signs. CARDIOVASCULAR: Regular rate and rhythm without murmurs, gallops, or rubs. RESPIRATORY: Clear to auscultation. Breath sounds equal bilaterally. No wheezes , rales, or rhonchi. GASTROINTESTINAL: Abdomen soft, non-tender, nondistended. No hepato-splenomegaly , or palpable masses. No guarding. MUSCULOSKELETAL: Right lower extremity leg in bandages NEUROLOGICAL: Awake and alert. Cranial nerves II through XII intact. Motor and sensory grossly within normal limits. Five out of 5 muscle strength in all muscle groups. Normal speech. Imaging Last Impressions Knee X-Ray 04/05/17 0923 Signed Impressions: Service Date/Time: Wednesday, April 05, 2017 12:47 - CONCLUSION: Expected changes following total knee arthroplasty, as above. Mode Mariano MD Assessment and Plan Assessment and Plan 72-year-old male presented with elective surgery Severe right knee osteoarthritis -Status post Right total knee arthroplasty today on 04/05/2017. -Management per orthopedic surgeon. Hypertension/anxiety -Continue with home medication. DVT prophylaxis -Management per primary team. Discussed Condition With patient and PACU nurse. Ashley Lyons MD Apr 05, 2017 14:35
[2017-04-05] MEDS: ACETAMINOPHEN/HYDROcodone 325 MG/7.5 MG TAB PO PRN ×2 (16:01→23:52)
[2017-04-05 20:20] VITALS: BP 112/69; PULSE 89; RESP 17; TEMP 97; O2SAT 94
[2017-04-06 00:08] VITALS: BP 106/62; PULSE 85; RESP 17; TEMP 98.2; O2SAT 96
[2017-04-06 03:17] VITALS: BP 100/63; PULSE 81; RESP 18; TEMP 97.8; O2SAT 96
[2017-04-06 04:40] LABS: HEMATOCRIT 30.9 % (39.0-51.0); MEAN CELL VOLUME 93.6 FL (80.0-100.0); MEAN CORPUSCULAR HEMOGLOBIN 31.9 PG (27.0-34.0); MEAN CORPUSCULAR HGB CONC 34.1 % (32.0-36.0); PLATELET COUNT 116 TH/MM3 (150-450); RED CELL DISTRIBUTION WIDTH 14.2 % (11.6-17.2); REVIEW FLAG FINAL; WHITE BLOOD COUNT 9.1 TH/MM3 (4.0-11.0)
[2017-04-06] MEDS: ACETAMINOPHEN/HYDROcodone 325 MG/7.5 MG TAB PO PRN ×5 (05:08→23:05)
[2017-04-06 05:10] LABS: BICARBONATE 25.5 MEQ/L (21.0-32.0); POTASSIUM 3.8 MEQ/L (3.5-5.1)
[2017-04-06] MEDS: SODIUM CHLOR 0.9% 1000 ML INJ 1,000 ML IV SCH ×2 (05:23→15:23)
[2017-04-06 07:31] VITALS: BP 101/62; PULSE 84; RESP 19; TEMP 96.9; O2SAT 98
[2017-04-06] MEDS: CYANOCOBALAMIN 1,000 MCG TAB PO SCH (08:46)
[2017-04-06] MEDS: LOSARTAN 50 MG TAB PO SCH (08:47)
[2017-04-06] MEDS: amLODIPine BESYLATE 5 MG TAB PO SCH (08:47)
--- NOTE | 2017-04-06 08:52 | PD.ORT.PN ---
Subjective Post Op Day #: 1 Subjective Remarks pain under control. Objective Vitals Vital Signs Date Time Temp Pulse Resp B/P (MAP) Pulse Ox O2 Delivery O2 Flow Rate FiO2 04/06/17 07:31 96.9 84 19 101/62 (75) 98 04/06/17 03:17 97.8 81 18 100/63 (75) 96 04/06/17 00:08 98.2 85 17 106/62 (77) 96 04/05/17 20:20 97.0 89 17 112/69 (83) 94 04/05/17 20:00 Room Air 04/05/17 13:48 96.3 58 18 118/69 (85) 97 04/05/17 13:43 Nasal Cannula 2.00 04/05/17 13:32 98.1 56 20 121/64 (83) 97 Nasal Cannula 2 04/05/17 13:15 56 20 121/64 (83) 97 Nasal Cannula 2 04/05/17 13:00 56 20 118/62 (80) 95 Nasal Cannula 2 04/05/17 12:45 67 20 126/68 (87) 94 Nasal Cannula 2 04/05/17 12:30 72 20 125/64 (84) 91 Nasal Cannula 2 04/05/17 12:21 98.1 84 20 129/65 (86) 95 Nasal Cannula 2 I/O 04/05/17 04/05/17 04/05/17 04/06/17 04/06/17 04/06/17 07:00 15:00 23:00 07:00 15:00 23:00 Intake Total 1700 ml 580 ml 460 ml Output Total 3450 ml 300 ml Balance -1750 ml 280 ml 460 ml Intake Oral 480 ml 360 ml IV Total 1700 ml 100 ml 100 ml Output Urine Total 350 ml 300 ml Estimated Blood Loss 100 ml Other 3000 ml # Bowel Movements 0 Result Diagram: 04/06/1742704/06/17427 Imaging Last 24 hours Impressions Knee X-Ray 04/05/17922 Signed Impressions: Service Date/Time: Wednesday, April 05, 2017 12:47 - CONCLUSION: Expected changes following total knee arthroplasty, as above. Mode Mariano MD Objective Remarks in bed, nad dressing c/d/i neg homans nvi Assessment & Plan Ortho Post Op Day #: 1 Problem List: Assessment and Plan s/p R TKA wbat dailyl dressing changes migue d/c planning home with [facility] and pt - probably Wed rx in chart f/up dr. trejo 2 weeks Adi Pierce Apr 06, 2017 08:52
--- NOTE | 2017-04-06 08:53 | HHI.DCPOC ---
Discharge Care Plan Diagnosis: (1) Primary localized osteoarthrosis, lower leg Your Health Problems Are: Difficulty with ADL Goals to Promote Your Health * To prevent worsening of your condition and complications * To maintain your health at the optimal level Directions to Meet Your Goals Take your medications as prescribed Follow your dietary instruction Follow activity as directed Keep your appointments as scheduled Take your immunizations and boosters as scheduled If your symptoms worsen call your PCP, if no PCP go to Urgent Care Center or Emergency Room Smoking is Dangerous to Your Health. Avoid second hand smoke Call the 24-hour hour crisis hotline for domestic abuse at Adi Pierce Apr 06, 2017 08:53
--- NOTE | 2017-04-06 08:54 | HHI.FF ---
Face to Face Verification Diagnosis: (1) Primary localized osteoarthrosis, lower leg Physical Therapy Gait training, Safety evaluation, Transfer training, bed to chair Knee: Total knee, Protocol: Right, Full weight bearing Right LE Weight Bearing: WB as tolerated Nursing RN: 3 days/week x 2 weeks Nursing: Kirill teaching, Dressing changes Dressing Changes: Daily dressing change I have seen patient Roman MarieMICHAEL on 04/06/17. My clinical findings support the need for the requested home health care services because: Limited ability to care for self High risk of falls I certify that my clinical findings support that this patient is homebound because: Post-op weakness Unsteady gait/balance Adi Pierce Apr 06, 2017 08:54
[2017-04-06] MEDS ORDERED: CHLORTHALIDONE 25 MG PO SCH (09:00)
--- NOTE | 2017-04-06 09:49 | HHI.PR ---
Subjective Remarks Follow-up for knee surgery Patient's no complains. Vitals are stable. He is able to take oral intake. No issues since he was last seen. Objective Vitals Vital Signs Date Time Temp Pulse Resp B/P (MAP) Pulse Ox O2 Delivery O2 Flow Rate FiO2 04/06/17 07:31 96.9 84 19 101/62 (75) 98 04/06/17 03:17 97.8 81 18 100/63 (75) 96 04/06/17 00:08 98.2 85 17 106/62 (77) 96 04/05/17 20:20 97.0 89 17 112/69 (83) 94 04/05/17 20:00 Room Air 04/05/17 13:48 96.3 58 18 118/69 (85) 97 04/05/17 13:43 Nasal Cannula 2.00 04/05/17 13:32 98.1 56 20 121/64 (83) 97 Nasal Cannula 2 04/05/17 13:15 56 20 121/64 (83) 97 Nasal Cannula 2 04/05/17 13:00 56 20 118/62 (80) 95 Nasal Cannula 2 04/05/17 12:45 67 20 126/68 (87) 94 Nasal Cannula 2 04/05/17 12:30 72 20 125/64 (84) 91 Nasal Cannula 2 04/05/17 12:21 98.1 84 20 129/65 (86) 95 Nasal Cannula 2 I/O 04/05/17 04/05/17 04/05/17 04/06/17 04/06/17 04/06/17 07:00 15:00 23:00 07:00 15:00 23:00 Intake Total 1700 ml 580 ml 460 ml Output Total 3450 ml 300 ml Balance -1750 ml 280 ml 460 ml Intake Oral 480 ml 360 ml IV Total 1700 ml 100 ml 100 ml Output Urine Total 350 ml 300 ml Estimated Blood Loss 100 ml Other 3000 ml # Bowel Movements 0 Result Diagram: 04/06/1742704/06/17427 Objective Remarks GENERAL:in NAD CARDIOVASCULAR: Regular rate and rhythm without murmurs, gallops, or rubs. RESPIRATORY: Breath sounds equal bilaterally. No accessory muscle use. GASTROINTESTINAL: Abdomen soft, non-tender, nondistended. Medications and IVs Current Medications Lactated Ringer's 1,000 ml @ 30 mls/hr Q24H PRN IV SEE LABEL COMMENTS Last administered on 04/05/17 08:15; Start 04/05/17 at 08:15; Stop 04/08/17 at 08:14 Sodium Chloride 500 ml @ 30 mls/hr [id number] PRN IV SEE LABEL COMMENTS; Start at 08:15; Stop 04/08/17 at 08:14 Metoprolol Tartrate (Lopressor) 25 mg DOPE MAINTENANCE WORKER PRN PO SEE LABEL COMMENTS; Start 04/05/17 at 08:15; Stop 04/08/17 at 08:14 Povidone Iodine (Betadine 5% Antisepsis Kit) 1 applic DOPE MAINTENANCE WORKER PRN EACH NARE SEE LABEL COMMENTS Last administered on 04/05/17 08:20; Start 04/05/17 at 08:15 ; Stop 04/08/17 at 08:14 Chlorhexidine Gluconate (Chlorhexidine 2% Cloth) 3 pack DOPE MAINTENANCE WORKER PRN TOPICAL SEE LABEL COMMENTS Last administered on 04/05/17 07:30; Start 04/05/17 at 08:15 ; Stop 04/08/17 at 08:14 Insulin Human Regular (NovoLIN R INJ) See Protocol Table ... DOPE MAINTENANCE WORKER PRN SQ SEE PROTOCOL TABLE; Start 04/05/17 at 08:15; Stop 04/08/17 at 08:14 Povidone Iodine (Betadine 7.5% Scrub) 1 applic ONCE TOPICAL Last administered on 04/05/17 08:00; Start 04/05/17 at 08:15; Stop 04/05/17 at 12:53; Status DC Chlorhexidine Gluconate (Hibiclens 4% Top Soln) 1 applic ONCE TOPICAL ; Start 04/05/17 at 08:15; Stop 04/05/17 at 12:53; Status DC Cefazolin Sodium/ Dextrose 50 ml @ 100 mls/hr DOPE MAINTENANCE WORKER IV Last administered on 04/05/17 09:40; Start 04/05/17 at 08:15; Stop 04/05/17 at 12:53; Status DC Vancomycin HCl 1000 mg/Sodium Chloride 250 ml @ 250 mls/hr DOPE MAINTENANCE WORKER IV Last administered on 04/05/17 09:43; Start 04/05/17 at 08:15; Stop 04/05/17 at 12:53 ; Status DC Ropivacaine 24.63 ml/Ketorolac Tromethamine 30 mg/Epinephrine HCl 0.5 mg/ Clonidine 80 mcg/ Sodium Chloride 100 ml @ 200 mls/hr ONCE P-ARTICULR Last administered on 04/05/17 10:59; Start 04/05/17 at 08:15; Stop 04/06/17 at 08:14 ; Status DC Dexamethasone Sodium Phosphate (Decadron Inj) 10 mg DOPE MAINTENANCE WORKER IV Last administered on 04/05/17 08:25; Start 04/05/17 at 08:15 Tranexamic Acid 3000 mg/Sodium Chloride 130 ml @ 260 mls/hr ONCE P-ARTICULR Last administered on 04/05/17 10:59; Start 04/05/17 at 08:15; Stop 04/06/17 at 08:14; Status DC Tranexamic Acid 1374 mg/Sodium Chloride 113.74 ml @ 200 mls/ hr ONCE IV Last administered on 04/05/17 10:28; Start 04/05/17 at 09:00; Stop 04/05/17 at 15:00 ; Status DC Amlodipine Besylate (Norvasc) 5 mg DAILY PO ; Start 04/06/17 at 09:00 Cyanocobalamin (Vitamin B12) 2,000 mcg DAILY PO Last administered on 04/06/17 08:46; Start 04/06/17 at 09:00 Diazepam (Valium) 5 mg HS PRN PO SPASM; Start 04/05/17 at 09:30 Losartan Potassium (Cozaar) 50 mg DAILY PO ; Start 04/06/17 at 09:00 Patient Own Medication PT OWN MED: (Chlorthalidone 25 MG) DAILY PO ; Start 04/06 at 09:00; Status Future Hold Sodium Chloride 1,000 ml @ 100 mls/hr Q10H IV Last administered on 04/05/17 13:00; Start 04/05/17 at 09:23 Cefazolin Sodium 1000 mg/Sodium Chloride 100 ml @ 200 mls/hr Q6H IV Last administered on 04/06/17 03:10; Start 04/05/17 at 15:00; Stop 04/06/17 at 03:29 ; Status DC Miscellaneous Information (Post-op Orders (for Pharmacy)) STAT ONCE XX ; Start 04/05/17 at 12:30; Stop 04/05/17 at 12:50; Status DC Enoxaparin Sodium (Lovenox Inj) 40 mg Q24H SQ ; Start 04/06/17 at 11:00 Morphine Sulfate (Morphine Inj) 3 mg Q3H PRN IV PUSH Pain >7 when off OFFICE NURSE; Start 04/05/17 at 09:30 Acetaminophen/ Hydrocodone Bitart ([place] 7.5-325 Mg) 1 tab Q4H PRN PO PAIN LESS THAN 5 ON SCALE; Start 04/05/17 at 09:30 Acetaminophen/ Hydrocodone Bitart ([place] 7.5-325 Mg) 2 tab Q4H PRN PO PAIN SCALE 5 TO 10 Last administered on 04/06/17 08:46; Start 04/05/17 at 09:30 Multivitamins/ Minerals Therapeutic (Theragran M Tab) 1 tab BID PO ; Start 04/06 at 21:00; Stop 06/05/17 at 20:59 Ondansetron HCl (Zofran Inj) 4 mg Q6H PRN IVP NAUSEA OR VOMITING; Start at 09:30 Docusate Sodium (Colace) 100 mg BID PO ; Start 04/06/17 at 21:00 Zolpidem Tartrate (Ambien) 5 mg HS PRN PO SLEEP; Start 04/05/17 at 09:30 Bisacodyl (Dulcolax Supp) 10 mg DAILY PRN RECTAL CONSTIPATION; Start 04/05/17 at 09:30 Diphenhydramine HCl (Benadryl Inj) 25 mg Q6H PRN IV PUSH ITCHING; Start at 09:30 Gentamicin Sulfate (Gentamicin Inj) 240 mg STK-MED ONCE .ROUTE Last administered on 04/05/17 10:59; Start 04/05/17 at 09:42; Stop 04/05/17 at 09:43 ; Status DC Acetaminophen 100 ml @ As Directed STK-MED ONCE IV ; Start 04/05/17 at 09:47; Stop 04/05/17 at 09:48; Status DC Bupivacaine Liposome (Exparel Pf 1.3% Inj) 20 ml STK-MED ONCE .ROUTE ; Start at 10:19; Stop 04/05/17 at 10:20; Status DC Morphine Sulfate (*morphine INJ PERIprocedure ONLY) 8 mg STK-MED ONCE .ROUTE ; Start 04/05/17 at 13:14; Stop 04/05/17 at 13:15; Status DC A/P Assessment and Plan 72-year-old male presented with elective surgery Severe right knee osteoarthritis -Status post Right total knee arthroplasty on 04/05/2017. -Management per orthopedic surgeon. Hypertension/anxiety -Continue with home medication. DVT prophylaxis -Management per primary team. Discharge Planning Patient is medically stable for discharge. Ashley Lyons MD Apr 06, 2017 09:49
[2017-04-06] MEDS: ENOXAPARIN SODIUM 40 MG/0.4 ML SYRINGE SQ SCH (10:48)
[2017-04-06 11:45] VITALS: BP 99/63; PULSE 70; RESP 19; TEMP 96; O2SAT 95
[2017-04-06 15:45] VITALS: BP 111/61; PULSE 66; RESP 19; TEMP 97; O2SAT 95
[2017-04-06] MEDS: CALCIUM CARBONATE 500 MG CHEWABLE TAB CHEW SCH ×2 (16:39→20:52)
[2017-04-06 20:15] VITALS: BP 110/56; PULSE 108; RESP 16; TEMP 97.9; O2SAT 97
[2017-04-06] MEDS: MULTIVITAMINS/MINERALS THERAPEUTIC TAB PO SCH (20:52)
[2017-04-06] MEDS: DOCUSATE SODIUM 100 MG CAP PO SCH (20:52)
[2017-04-07 00:20] VITALS: BP 142/79; PULSE 113; RESP 17; TEMP 99.9; O2SAT 93
[2017-04-07] MEDS: SODIUM CHLOR 0.9% 1000 ML INJ 1,000 ML IV SCH (01:23)
[2017-04-07] MEDS: ACETAMINOPHEN/HYDROcodone 325 MG/7.5 MG TAB PO PRN ×3 (05:25→13:02)
[2017-04-07 07:05] LABS: HEMATOCRIT 31.4 % (39.0-51.0); MEAN CELL VOLUME 93.5 FL (80.0-100.0); MEAN CORPUSCULAR HEMOGLOBIN 32.3 PG (27.0-34.0); MEAN CORPUSCULAR HGB CONC 34.6 % (32.0-36.0); PLATELET COUNT 110 TH/MM3 (150-450); RED BLOOD COUNT 3.36 MIL/MM3 (4.50-5.90); REVIEW FLAG FINAL; WHITE BLOOD COUNT 7.3 TH/MM3 (4.0-11.0)
[2017-04-07 07:31] LABS: BICARBONATE 25.7 MEQ/L (21.0-32.0); POTASSIUM 3.5 MEQ/L (3.5-5.1)
[2017-04-07 07:35] VITALS: BP 155/88; PULSE 100; RESP 19; TEMP 98.8; O2SAT 95
--- NOTE | 2017-04-07 08:24 | PD.ORT.PN ---
Subjective Post Op Day #: 2 Subjective Remarks pain worse last night, currently under control. urinary frequency with slight burning. Objective Vitals Vital Signs Date Time Temp Pulse Resp B/P (MAP) Pulse Ox O2 Delivery O2 Flow Rate FiO2 04/07/17 07:35 98.8 100 19 155/88 (110) 95 04/07/17 00:20 99.9 113 17 142/79 (100) 93 04/06/17 20:15 97.9 108 16 110/56 (74) 97 04/06/17 20:00 95 Room Air 04/06/17 15:45 97.0 66 19 111/61 (78) 95 04/06/17 11:45 96.0 70 19 99/63 (75) 95 04/06/17 11:27 Room Air I/O 04/06/17 04/06/17 04/06/17 04/07/17 04/07/17 04/07/17 07:00 15:00 23:00 07:00 15:00 23:00 Intake Total 460 ml 850 ml 480 ml 360 ml Output Total 150 ml 200 ml Balance 460 ml 700 ml 280 ml 360 ml Intake Oral 360 ml 850 ml 480 ml 360 ml IV Total 100 ml Output Urine Total 150 ml 200 ml # Voids 2 # Bowel Movements 0 0 0 Result Diagram: 04/07/17 0558 04/07/17 0558 Imaging Last 24 hours Impressions Knee X-Ray 04/05/17 0923 Signed Impressions: Service Date/Time: Wednesday, April 05, 2017 12:47 - CONCLUSION: Expected changes following total knee arthroplasty, as above. Mode Mariano MD Objective Remarks in bed, nad incision no erythema, no drainage neg homans nvi Assessment & Plan Ortho Post Op Day #: 2 Problem List: Assessment and Plan s/p R TKA wbat dailyl dressing changes lovenox UA and bladder scan - please call with results d/c planning home with [facility] and pt - ok to d/c today if does well in PT rx in chart f/up dr. trejo 2 weeks Adi Pierce Apr 07, 2017 08:24
[2017-04-07] MEDS: DOCUSATE SODIUM 100 MG CAP PO SCH (08:54)
[2017-04-07] MEDS: MULTIVITAMINS/MINERALS THERAPEUTIC TAB PO SCH (08:54)
[2017-04-07] MEDS: CYANOCOBALAMIN 1,000 MCG TAB PO SCH (08:54)
[2017-04-07] MEDS: CALCIUM CARBONATE 500 MG CHEWABLE TAB CHEW SCH (08:54)
[2017-04-07] MEDS: amLODIPine BESYLATE 5 MG TAB PO SCH (08:54)
[2017-04-07] MEDS: LOSARTAN 50 MG TAB PO SCH (08:54)
[2017-04-07 09:41] LABS: BLOOD, URINE SMALL (NEG); COMMENT (UR) CULT NOT INDICATED; CULTURE IF INDICATED CULT NOT INDICATED; GLUCOSE,URINE NEG (NEG); HYALINE CAST, URINE 3 /lpf (RARE); KETONE, URINE NEG (NEG); MUCUS URINE FEW /lpf (OCC); NITRITE,URINE NEG (NEG); URINE COLOR YELLOW (YELLW/STRAW)
[2017-04-07 11:37] VITALS: BP 154/85; PULSE 82; RESP 19; TEMP 98.5; O2SAT 93
[2017-04-07] MEDS: ENOXAPARIN SODIUM 40 MG/0.4 ML SYRINGE SQ SCH (13:03)
--- NOTE | 2017-04-08 09:48 | MD ---
cc: DIGNA RICARDO M.D. ADMISSION DATE: 04/05/2017 DISCHARGE DATE: 04/07/2017 ADMISSION DIAGNOSIS Severe degenerative osteoarthritis right knee. DISCHARGE DIAGNOSIS Severe degenerative osteoarthritis right knee. HISTORY OF PRESENT ILLNESS Mr. Marie is a 72-year-old male who has been a patient of Dr. Digna Ricardo at the [facility] regarding his bilateral knees. He does have a history of well-functioning left total knee arthroplasty. Currently he is being treated for significant progressive right knee pain that is aggravated by weightbearing activities. He states the pain is a severe aching sensation. He has no alleviating factors although in the past he has tried medications, bracing, physical therapy, home exercises and multiple injections without long-lasting relief of symptoms. He does have x-ray evidence of severe degenerative osteoarthritis with varus deformity. While in the office the patient was counseled on his diagnosis and treatment options. The risks, benefits and indications were all discussed. The patient did elect to proceed with surgical intervention to include a right total knee arthroplasty. DATE OF SURGERY 04/05/2017 PROCEDURE PERFORMED Right total knee arthroplasty. POSTOP After surgery the patient was admitted to [facility] where he received appropriate medical management, pain control, DVT prophylaxis as well as physical therapy. DISCHARGE Once being discharged from the hospital the patient is cleared to go home where he will receive home health care and home physical therapy. He is in stable condition. DISCHARGE INSTRUCTIONS He may weight-bear as tolerated. He is to receive daily dressing changes and has been instructed on appropriate wound care management. DISCHARGE MEDICATIONS The patient has been provided prescriptions for pain control as well as DVT prophylaxis medication. FOLLOWUP He has also been provided a follow-up appointment approximately 2 weeks from his date of surgery. The patient asked appropriate questions which have been answered. The patient has been discharged. Dictated by: John Pierce PA-C MD ENEDELIA Leonard/PREMA /8:07 AM /9:39 AM
== END 2017-04-07 13:41 | disposition home or self-care (01) | DRG 470 ==
LOC: HSDI 07:10 → N06A 13:42
PROVIDERS: ADMIT Orthopaedic Surgery Sports Medicine; ATTEND Orthopaedic Surgery Sports Medicine
PROC: 3E0T3BZ Introduction of Anesthetic Agent into Peripheral Nerves and Plexi, Percutaneous Approach (ICD-10-PCS; 2017-04-05)
PROC: 0SRC0J9 Replacement of Right Knee Joint with Synthetic Substitute, Cemented, Open Approach (ICD-10-PCS; principal; 2017-04-05 10:11)
DX: M17.11 Unilateral primary osteoarthritis, right knee (principal); I10 Essential (primary) hypertension; M21.161 Varus deformity, not elsewhere classified, right knee; F41.9 Anxiety disorder, unspecified; R35.0 Frequency of micturition; Z87.891 Personal history of nicotine dependence; Z96.652 Presence of left artificial knee joint
CPT/HCPCS: 73560; 80048; 81001; 85027; 86850; 86900; 86901; C1776; C9290; J0131; J0690; J0735; J1100; J1580; J1650; J1885; J2270; J2795; J3370; J7030; J7050; J7120; L1830

== ENCOUNTER 2017-06-08 13:20 | Emergency (ER) | payer OTHER ==
[~2017-06-08] VITALS: Ht 188 cm; Wt 197.0 kg
[~2017-06-08 13:20] MED LIST changes: +ASPI81CH6 CHEW; +ENOX40P SQ; +HYDR-3288 PO
[2017-06-08 13:21] VITALS: BP 147/117; PULSE 116; RESP 20; TEMP 101; O2SAT 96
[2017-06-08] MEDS ORDERED: SODIUM CHLOR 0.9% 1000 ML INJ 1,000 ML IV SCH (14:29)
[2017-06-08 14:33] LABS: AUTOMATED NEUTROPHIL # 9.8 TH/MM3 (1.8-7.7); BASOPHIL % 0.2 % (0.0-2.0); EOSINOPHIL % 0.1 % (0.0-4.0); HEMATOCRIT 38.2 % (39.0-51.0); HEMOGLOBIN 12.9 GM/DL (13.0-17.0); LYMPH % 5.9 % (9.0-44.0); LYMPHOCYTE # 0.7 TH/MM3 (1.0-4.8); MEAN CORPUSCULAR HEMOGLOBIN 30.4 PG (27.0-34.0); MEAN CORPUSCULAR HGB CONC 33.8 % (32.0-36.0); MEAN PLATELET VOLUME 8.3 FL (7.0-11.0); MONO % 9.7 % (0.0-8.0); MONOCYTE # 1.1 TH/MM3 (0-0.9); NEUT % 84.1 % (16.0-70.0); PLATELET COUNT 173 TH/MM3 (150-450); RED BLOOD COUNT 4.24 MIL/MM3 (4.50-5.90); RED CELL DISTRIBUTION WIDTH 15.3 % (11.6-17.2); WHITE BLOOD COUNT 11.6 TH/MM3 (4.0-11.0)
[2017-06-08 14:37] LABS: BILIRUBIN, URINE NEG (NEG); BLOOD, URINE NEG (NEG); GLUCOSE,URINE NEG (NEG); KETONE, URINE NEG (NEG); MUCUS URINE MANY /lpf (OCC); NITRITE,URINE NEG (NEG); SQUAMOUS EPITHELIAL CELL URINE <1 /hpf (0-5); URINE COLOR YELLOW (YELLW/STRAW); URINE LEUKOCYTE ESTERASE NEG (NEG)
--- NOTE | 2017-06-08 14:39 | PD ---
HPI Chief Complaint: Abdominal Pain Time Seen by Provider: 14:19 Travel History International Travel<30 days: No Contact w/Intl Traveler<30days: No Traveled to known affect area: No History of Present Illness HPI 72-year-old male persist for evaluation. Since yesterday has had left-sided abdominal pain, sharp, worse with breathing or coughing. He has had associated fevers, mild chills. In addition the patient has a scrotal lesion which has been present for a year. This is been worked up as an outpatient by oncologist Dr. Gamez and felt to be likely an autoimmune reaction. He reports over the past week the lesion has been larger, more painful, draining foul-smelling white drainage. He saw Dr. Gamez on June 03 and he is being referred to [facility] for further of an outpatient workup. He denies any dysuria, nausea or vomiting, diarrhea or constipation, cough, congestion, sore throat, flank pain. He has no other complaints at this time. 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) Tetanus Vaccination: Unknown Influenza Vaccination: No Past Surgical History Abdominal Surgery: No AICD: No Body Medical Devices: LEFT KNEE Cardiac Surgery: No Ear Surgery: No Endocrine Surgery: No Eye Surgery: No Genitourinary Surgery: Yes (NODULE REMOVED FROM LEFT TESTICLE) Gynecologic Surgery: No Joint Replacement: Yes (BILAT KNEES ) Oral Surgery: No Pacemaker: No Thoracic Surgery: No Social History Alcohol Use: Yes (wine daily ) Tobacco Use: No (20 pack years ) Substance Use: No Allergies-Medications (Allergen,Severity, Reaction): Coded Allergies: lisinopril (Verified Allergy, Unknown, 04/05/17) Reported Meds & Prescriptions Reported Meds & Active Scripts Active Flagyl (Metronidazole) 500 Mg Tab 500 Mg PO TID 10 Days Cipro (Ciprofloxacin HCl) 500 Mg Tab 500 Mg PO BID 10 Days [place] (Hydrocodone-Acetaminophen) 7.5-325 mg Tab 1-2 Tab PO Q6H PRN Aspirin Low Dose (Aspirin) 81 Mg Chew 81 Mg CHEW BID 30 Days Lovenox Inj (Enoxaparin Sodium) 40 Mg/0.4 Ml Syr 40 Mg SQ DAILY Amlodipine (Amlodipine Besylate) 5 Mg Tab 5 Mg PO DAILY Reported Vitamin B12 Tr (Cyanocobalamin) 1,000 Mcg Tab 2,000 Mcg PO DAILY Diazepam 5 Mg Tab 5 Mg PO HS PRN Vitamin D3 (Cholecalciferol) 2,000 Unit Cap 4,000 Units PO QOD Chlorthalidone 25 Mg Tab 25 Mg PO DAILY Losartan (Losartan Potassium) 50 Mg Tab 50 Mg PO DAILY Review of Systems Except as stated in HPI: all other systems reviewed are Neg Physical Exam Narrative GENERAL: Well-nourished male in no acute distress SKIN: Warm and dry. HEAD: Atraumatic. Normocephalic. EYES: Pupils equal and round. No scleral icterus. No injection or drainage. ENT: No nasal bleeding or discharge. Mucous membranes pink and moist. NECK: Trachea midline. No JVD. CARDIOVASCULAR: Regular rate and rhythm. No murmur appreciated. RESPIRATORY: No accessory muscle use. Clear to auscultation. Breath sounds equal bilaterally. GASTROINTESTINAL: Abdomen soft, focal left-sided abdominal tenderness or guarding. There is no tenderness to palpation in the left upper quadrant or left lower quadrant. examination reveals a large subcutaneous lesion of the lower scrotum. It is tender. There is some white drainage with palpation which was cultured. MUSCULOSKELETAL: No obvious deformities. No clubbing. No cyanosis. No edema. NEUROLOGICAL: Awake and alert. No obvious cranial nerve deficits. Motor grossly within normal limits. Normal speech. PSYCHIATRIC: Appropriate mood and affect; insight and judgment normal. Data Data Last Documented VS Vital Signs Date Time Temp Pulse Resp B/P (MAP) Pulse Ox O2 Delivery O2 Flow Rate FiO2 06/08/17 14:09 18 06/08/17 13:21 101.0 116 147/117 (127) 96 Room Air Orders Orders Sepsis Workup Initiated (06/08/17 ) Complete Blood Count With Diff (06/08/17 13:36) Comprehensive Metabolic Panel (06/08/17 13:36) Prothrombin Time / Inr (Pt) (06/08/17 13:36) Act Partial Throm Time (Ptt) (06/08/17 13:36) Lactic Acid Sepsis Protocol (06/08/17 13:36) Lipase (06/08/17 13:36) Urinalysis - C+S If Indicated (06/08/17 13:36) Influenzae A/B Antigen (06/08/17 13:36) Blood Culture (06/08/17 13:36) Chest, Pa & Lat (06/08/17 13:36) Ct Abd/Pel W Iv Contrast(Rout) (06/08/17 14:29) Sodium Chlor 0.9% 1000 Ml Inj (Ns 1000 M (06/08/17 14:29) Us Testicles W Doppler (06/08/17 14:32) Iohexol 350 Inj (Omnipaque 350 Inj) (06/08/17 15:24) Ed Discharge Order (06/08/17 16:04) Ciprofloxacin (Cipro) (06/08/17 16:15) Metronidazole (Flagyl) (06/08/17 16:15) Labs Laboratory Tests Test 06/08/17 14:15 White Blood Count 11.6 TH/MM3 Red Blood Count 4.24 MIL/MM3 Hemoglobin 12.9 GM/DL Hematocrit 38.2 % Mean Corpuscular Volume 90.0 FL Mean Corpuscular Hemoglobin 30.4 PG Mean Corpuscular Hemoglobin Concent 33.8 % Red Cell Distribution Width 15.3 % Platelet Count 173 TH/MM3 Mean Platelet Volume 8.3 FL Neutrophils (%) (Auto) 84.1 % Lymphocytes (%) (Auto) 5.9 % Monocytes (%) (Auto) 9.7 % Eosinophils (%) (Auto) 0.1 % Basophils (%) (Auto) 0.2 % Neutrophils # (Auto) 9.8 TH/MM3 Lymphocytes # (Auto) 0.7 TH/MM3 Monocytes # (Auto) 1.1 TH/MM3 Eosinophils # (Auto) 0.0 TH/MM3 Basophils # (Auto) 0.0 TH/MM3 CBC Comment DIFF FINAL Differential Comment Prothrombin Time 10.8 SEC Prothromb Time International Ratio 1.1 RATIO Activated Partial Thromboplast Time 26.7 SEC Urine Color YELLOW Urine Turbidity CLEAR Urine pH 6.0 Urine Specific Richardson 1.029 Urine Protein 30 mg/dL Urine Glucose (UA) NEG mg/dL Urine Ketones NEG mg/dL Urine Occult Blood NEG Urine Nitrite NEG Urine Bilirubin NEG Urine Urobilinogen 2.0 MG/DL Urine Leukocyte Esterase NEG Urine RBC 1 /hpf Urine WBC 1 /hpf Urine Squamous Epithelial Cells <1 /hpf Urine Mucus MANY /lpf Microscopic Urinalysis Comment CATH-CULT NOT IND Blood Urea Nitrogen 17 MG/DL Creatinine 1.18 MG/DL Random Glucose 132 MG/DL Total Protein 7.6 GM/DL Albumin 3.9 GM/DL Calcium Level 9.0 MG/DL Alkaline Phosphatase 73 U/L Aspartate Amino Transf (AST/SGOT) 5 U/L Alanine Aminotransferase (ALT/SGPT) 10 U/L Total Bilirubin 1.3 MG/DL Sodium Level 137 MEQ/L Potassium Level 3.5 MEQ/L Chloride Level 102 MEQ/L Carbon Dioxide Level 27.3 MEQ/L Anion Gap 8 MEQ/L Estimat Glomerular Filtration Rate 61 ML/MIN Lactic Acid Level 0.8 mmol/L Lipase 67 U/L [facility] Medical Decision Making Medical Screen Exam Complete: Yes Emergency Medical Condition: Yes Medical Record Reviewed: Yes Differential Diagnosis Diverticulitis, cellulitis, sepsis, colitis Narrative Course CT abdomen and pelvis is suggestive of diverticulitis. CBC reveals WBC count 11.6 with 84.1 Percent neutrophils. Scrotal ultrasound reveals soft tissue mass involving the midline scrotum. Wound culture was also performed. The patient was given Cipro and Flagyl. I discussed with the patient the options of being admitted for antibiotic therapy versus outpatient treatment and he would prefer to go home at this time. I did recommend that he follow-up with his primary care physician in 2 days for recheck. Discussed signs and symptoms that would warrant returning to the emergency room. He is stable for discharge. Diagnosis Primary Impression: Diverticulitis Additional Instructions: Medication as prescribed. Avoid small particulate foods such as notes and seat. Stay well hydrated and well-nourished. Follow-up with primary care physician in 2 days. Return for any acutely new or worsening symptoms. Med/Other Pt SpecificInfo: Prescription(s) given Scripts Metronidazole (Flagyl) 500 Mg Tab 500 MG PO TID for Infection for 10 Days, TAB 0 Refills Prov: Danyell Thompson MD 06/08/17 Ciprofloxacin (Cipro) 500 Mg Tab 500 MG PO BID for Infection for 10 Days, #20 TAB 0 Refills Prov: Danyell Thompson MD 06/08/17 Disposition: DISCHARGE HOME Condition: Stable Austin Clement Jun 08, 2017 14:39
[2017-06-08 14:58] LABS: ALBUMIN 3.9 GM/DL (3.4-5.0); ALT (GPT) 10 U/L (12-78); AST (GOT) 5 U/L (15-37); BICARBONATE 27.3 MEQ/L (21.0-32.0); BLOOD UREA NITROGEN 17 MG/DL (7-18); CHLORIDE 102 MEQ/L (98-107); CREATININE 1.18 MG/DL (0.60-1.30); GLOMERULAR FILTRATION RATE 61 ML/MIN (>89); GLUCOSE,RANDOM 132 MG/DL (74-106); SODIUM (NA) 137 MEQ/L (136-145)
[2017-06-08 15:00] LABS: ALKALINE PHOSPHATASE 73 U/L (45-117); TOTAL BILIRUBIN ADULT 1.3 MG/DL (0.2-1.0); TOTAL PROTEIN 7.6 GM/DL (6.4-8.2)
[2017-06-08 15:18] LABS: INTERNATIONAL NORMALIZED RATIO 1.1 RATIO; PROTHROMBIN TIME - PATIENT 10.8 SEC (9.8-11.6)
[2017-06-08] MEDS ORDERED: IOHEXOL 350 MG/ML 10 ML VIAL (for RAD DIAG) IVCONTRAST ONE (15:24)
--- NOTE | 2017-06-08 15:35 | RADRPT ---
EXAM DATE/TIME: 06/08/2017 14:39 [facility] COMPARISON: No previous studies available for comparison. INDICATIONS : Testicle lump and pain. MEDICAL HISTORY : Hypothyroidism. Hypertension. Testicle lump and pain. Arthritis. SURGICAL HISTORY : Bilateral knee replacement. ENCOUNTER: Initial ACUITY: >1 year PAIN SCORE: 3/10 LOCATION: Bilateral testicles. MEASUREMENTS: RIGHT TESTICLE: 3.1 x 2.7 x 2.9cm LEFT TESTICLE: 2.9 x 2.1 x 3.2cm FINDINGS: The testicles are intact and unremarkable with no evidence of intratesticular mass. Normal intact col or flow present in both testicles. There is a large solid vascular mass interposed between the testicles involving the midline scrotum. This mass measures approximately 5 cm. There are normally prominent inguinal lymph nodes seen. CONCLUSION: Normal appearing testicles. Extratesticular solid soft tissue Mass involving the midline scrotum. Mode Cohn MD on June 08, 2017 at 15:29 Board Certified Radiologist. This report was verified electronically.
--- NOTE | 2017-06-08 15:48 | RADRPT ---
EXAM DATE/TIME: 06/08/2017 15:22 [facility] COMPARISON: No previous studies available for comparison. INDICATIONS : Left upper region pain with nausea for two days. IV CONTRAST: 100 cc Omnipaque 350 (iohexol) IV ORAL CONTRAST: No oral contrast ingested. RADIATION DOSE: 7.37 CTDIvol (mGy) MEDICAL HISTORY : Cardiovascular disease. Hypertension. SURGICAL HISTORY : Nodule removed from left testicle. ENCOUNTER: Initial ACUITY: 2 days PAIN SCALE: 8/10 LOCATION: Left upper quadrant TECHNIQUE: Volumetric scanning of the abdomen and pelvis was performed. Using automated exposure control and ad justment of the mA and/or kV according to patient size, radiation dose was kept as low as reasonably achievable to obtain optimal diagnostic quality images. DICOM format image data is available electro nically for review and comparison. FINDINGS: LOWER LUNGS: The visualized lower lungs are clear. LIVER: Homogeneous density without lesion. There is no dilation of the biliary tree. Cholelithiasis is note d. SPLEEN: Normal size without lesion. PANCREAS: Within normal limits. KIDNEYS: Normal in size and shape. There is no solid mass, stone or hydronephrosis. Bilateral renal cysts are noted with the largest on the left measuring 4.3 cm. ADRENAL GLANDS: Within normal limits. VASCULAR: There is no aortic aneurysm. BOWEL/MESENTERY: Pericolic inflammatory changes are noted adjacent to the descending colon. There is wall thickening i nvolving the descending colon also. The findings are suggestive of acute diverticulitis. No pericolic abscess is noted. ABDOMINAL WALL: Within normal limits. RETROPERITONEUM: There is no lymphadenopathy. BLADDER: Urinary bladder wall is diffusely thickened. REPRODUCTIVE: The prostate gland is significantly enlarged and irregular in contour. INGUINAL: There is no lymphadenopathy or hernia. MUSCULOSKELETAL: Degenerative changes are noted throughout the lumbar and lower thoracic spine. CONCLUSION: 1. Diffuse pericolic inflammatory changes and wall thickening involving the descending colon suggesti ve of acute diverticulitis. Clinical correlation is recommended. 2. Significantly enlarged irregular prostate gland. 3. Bilateral renal cysts. 4. Cholelithiasis. 5. Diffuse urinary bladder wall thickening. 6. Degenerative changes throughout the lumbar and lower thoracic spine. Damaso Diaz MD on June 08, 2017 at 15:41 Board Certified Radiologist. This report was verified electronically.
[2017-06-08] MEDS ORDERED: METR-1 PO (16:06)
[2017-06-08] MEDS ORDERED: CIPR-9 PO (16:06)
[2017-06-08] MEDS ORDERED: CIPROFLOXACIN 500 MG TAB PO ONE (16:15)
[2017-06-08] MEDS ORDERED: metroNIDAZOLE 500 MG TAB PO ONE (16:15)
--- NOTE | 2017-06-08 17:10 | RADRPT ---
EXAM DATE/TIME: 06/08/2017 15:32 [facility] COMPARISON: CHEST SINGLE AP, June 18, 2016, 9:00. INDICATIONS : Pain in chest, left ribs and abdomen when taking a deep breath, denies trauma MEDICAL HISTORY : Hypertension. lump on testicles SURGICAL HISTORY : bilateral knee replacement ENCOUNTER: Subsequent ACUITY: 1 day PAIN SCORE: 10/10 LOCATION: Bilateral chest FINDINGS: Mild diffuse interstitial prominence similar to previous exam. No new focal pleural or parenchymal op acities. No significant pneumothorax. Cardiomediastinal contours are within normal limits. No displac ed rib fractures. CONCLUSION: 1. No acute abnormality or significant interval change. Pete Lockwood MD on June 08, 2017 at 17:07 Board Certified Radiologist. This report was verified electronically.
== END 2017-06-08 18:14 | disposition home or self-care (01) ==
LOC: NEPE 13:20
DX: K57.92 Diverticulitis of intestine, part unspecified, without perforation or abscess without bleeding (principal); I10 Essential (primary) hypertension; Z87.891 Personal history of nicotine dependence
CPT/HCPCS: 71046; 74177; 76870; 80053; 81001; 83605; 83690; 85025; 85610; 85730; 87040; 87070; 87077; 87186; 87804; 93975; 99285; J7030; Q9967; 87205

== ENCOUNTER 2017-06-11 14:53 | Emergency (ER) | payer OTHER ==
[~2017-06-11] VITALS: Ht 188 cm; Wt 90.0 kg
[~2017-06-11 14:53] MED LIST changes: +CIPR-9 PO; +METR-1 PO
[2017-06-11 14:55] VITALS: BP 114/73; PULSE 86; RESP 14; TEMP 98.5; O2SAT 97
[2017-06-11] MEDS ORDERED: BACT800T5 PO (15:41)
--- NOTE | 2017-06-11 15:41 | PD ---
HPI Chief Complaint: Medical Clearance Time Seen by Provider: 15:23 Travel History International Travel<30 days: No Contact w/Intl Traveler<30days: No Traveled to known affect area: No History of Present Illness HPI This is a 72-year-old male who presents to the emergency department having been called back due to a positive wound culture. Patient has had a scrotal wound that has been there for a month. He was seen in the emergency department 3 days ago for acute diverticulitis and had a wound culture performed which grew enterococcus. He has been on ciprofloxacin and Flagyl neither of which cover this bacteria. Patient denies any fevers or chills or any other acute complaints. He is going to [facility] next week to have his scrotal wound evaluated. His abdominal pain is significantly improved. 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) Past Surgical History Abdominal Surgery: No AICD: No Body Medical Devices: LEFT KNEE Cardiac Surgery: No Ear Surgery: No Endocrine Surgery: No Eye Surgery: No Genitourinary Surgery: Yes (NODULE REMOVED FROM LEFT TESTICLE) Gynecologic Surgery: No Joint Replacement: Yes (BILAT KNEES ) Oral Surgery: No Pacemaker: No Thoracic Surgery: No Social History Alcohol Use: Yes (wine daily ) Tobacco Use: No (20 pack years ) Substance Use: No Allergies-Medications (Allergen,Severity, Reaction): Coded Allergies: lisinopril (Verified Allergy, Unknown, 06/11/17) Reported Meds & Prescriptions Reported Meds & Active Scripts Active Flagyl (Metronidazole) 500 Mg Tab 500 Mg PO TID 10 Days Cipro (Ciprofloxacin HCl) 500 Mg Tab 500 Mg PO BID 10 Days [place] (Hydrocodone-Acetaminophen) 7.5-325 mg Tab 1-2 Tab PO Q6H PRN Aspirin Low Dose (Aspirin) 81 Mg Chew 81 Mg CHEW BID 30 Days Lovenox Inj (Enoxaparin Sodium) 40 Mg/0.4 Ml Syr 40 Mg SQ DAILY Amlodipine (Amlodipine Besylate) 5 Mg Tab 5 Mg PO DAILY Reported Vitamin B12 Tr (Cyanocobalamin) 1,000 Mcg Tab 2,000 Mcg PO DAILY Diazepam 5 Mg Tab 5 Mg PO HS PRN Vitamin D3 (Cholecalciferol) 2,000 Unit Cap 4,000 Units PO QOD Chlorthalidone 25 Mg Tab 25 Mg PO DAILY Losartan (Losartan Potassium) 50 Mg Tab 50 Mg PO DAILY Review of Systems Except as stated in HPI: all other systems reviewed are Neg Physical Exam Narrative GENERAL: Well-appearing, no acute distress, nontoxic SKIN: Warm and dry. HEAD: Atraumatic. Normocephalic. ENT: No nasal bleeding or discharge. Moist mucous membranes : Thickened skin with some yellowed tissue and serous drainage over a large amount of the scrotum chronic in appearance MUSCULOSKELETAL: No obvious deformities. Moving all extremities. NEUROLOGICAL: Awake and alert. No obvious cranial nerve deficits. Motor grossly within normal limits. Normal speech. PSYCHIATRIC: Appropriate mood and affect; insight and judgment normal. 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 Bacteria is sensitive to Bactrim. Patient will be discharged on Bactrim and can follow up with his outpatient subspecialist. Diagnosis Primary Impression: Open wound of scrotum Qualified Codes: S31.30XD - Unspecified open wound of scrotum and testes, subsequent encounter Patient Instructions: General Instructions Med/Other Pt SpecificInfo: Prescription(s) given Scripts Sulfamethoxazole-Trimethoprim (Bactrim DS) 800-160 Mg Tab 1 TAB PO BID for Infection, #14 TAB 0 Refills Prov: Yeimy Farooq MD 06/11/17 Disposition: 01 DISCHARGE HOME Condition: Stable Yeimy Farooq MD Jun 11, 2017 15:41
== END 2017-06-11 15:55 | disposition home or self-care (01) ==
LOC: NEPD 14:53
DX: S31.30XD Unspecified open wound of scrotum and testes, subsequent encounter (principal); M19.90 Unspecified osteoarthritis, unspecified site; F41.9 Anxiety disorder, unspecified; I10 Essential (primary) hypertension; X58.XXXD Exposure to other specified factors, subsequent encounter; Z79.82 Long term (current) use of aspirin; Z79.899 Other long term (current) drug therapy; Z88.8 Allergy status to other drugs, medicaments and biological substances; Z87.891 Personal history of nicotine dependence
CPT/HCPCS: 99281